=== PATIENT | female | born 1935 | race Caucasian/White ===

== ENCOUNTER 2016-10-27 09:49 | Inpatient (IN) | payer MEDICARE, OTHER ==
[2016-10-27] MEDS ORDERED: Sodium Chloride 0.9% 10 ML Syringe FLUSH PRN ×2 (10:31→11:57)
[2016-10-27] MEDS ORDERED: Ondansetron 4 MG/2 ML SDV IVPUSH ONE (10:31)
[2016-10-27] MEDS ORDERED: Sodium Chloride 0.9% 1,000 ML IV SCH (10:45)
--- NOTE | 2016-10-27 11:09 | CT ---
Head CT Technique: Multiple axial sections through the brain were obtained. Intravenous contrast was not utilized. Comparison: Previous head CT study of 02/12/16. Findings: Ventricles along with basal cisterns and sulci over the convexities are mildly prominent. Diminished density noted within the periventricular white matter compatible with small vessel ischemic demyelination change. No other abnormal parenchymal densities are seen. Atherosclerotic calcification is noted within the vertebral vessels and within the carotid siphon. Bone window settings were reviewed which shows the visualized sinuses to appear clear. No discrete calvarial abnormality is seen. Impression: 1. Senescent change as noted above. No significant change is seen from prior head CT exam. Nothing acute is identified. Diagnostic code #2
--- NOTE | 2016-10-27 11:46 | CR ---
Chest: Frontal view of the chest was obtained. Comparison: Previous chest x-ray of 06/18/16. Large hiatal hernia is seen which appears stable. Heart size at the upper limits of normal. Mild tortuosity of the thoracic aorta is seen. Lungs are clear. Mild scoliosis is noted within the spine. Impression: 1. Incidental findings as noted above. Nothing acute identified on frontal chest x-ray. Diagnostic code #2
[2016-10-27] MEDS ORDERED: Iopamidol 612 MG/ML 100 ML Bottle IVPUSH ONE (11:57)
--- NOTE | 2016-10-27 12:35 | EDM.PDOC ---
ED HISTORY OF PRESENT ILLNESS - General Chief Complaint: Chest Pain Stated Complaint: VOMITING/ WEAK/ CHEST PAIN Time Seen by Provider: 10/27/16 10:20 Source of Information: Reports: Other ([facility]) History Limitations: Reports: Altered mental status - History of Present Illness INITIAL COMMENTS - FREE TEXT/NARRATIVE: The patient presents from [facility] with complaints of chest pain, nausea and vomiting. A few nights ago her stomach was upset and she needed some maalox and that helped but through the night last night the pain has increased and she has vomited multiple times. She has a history of hiatal hernia and has episodes like this but this is worse. She has pain in the epigastric region and chest. She will not take her medications to help with this. She will not respond much. She will normally talk but she refuses now. She has had no fever or cough from what the staff observed. Timing/Duration: Reports: Hour(s): (Last night) Severity: moderate Location, General: Reports: chest, abdomen Quality: Reports: Sharp Improves with: Reports: None Worsens with: Reports: None Associated Symptoms (General): Reports: chest pain, nausea/vomiting. Denies: cough, fever/chills, loss of appetite, shortness of breath - Related Data Allergies/ADRs: Allergies Allergy/AdvReac Type Severity Reaction Status Date / Time acetaminophen [From Tylenol] Allergy Severe Cannot Verified 10/27/16 10:02 Remember Home Meds: Home Meds Benzocaine/Menthol [Cepacol Sore Throat Lozenge] 1 tab PO Q4H PRN 10/27/16 [ History] Carboxymethyl/Glycerin/Poly80 [Refresh Optive Advanced Drops] 1 drop EYEBOTH BID 10/27/16 [History] Donepezil HCl [Donepezil HCl] 5 mg PO BEDTIME 10/27/16 [History] Hydrocortisone [Cortizone-10] 1 applic TOP BID PRN 10/27/16 [History] Levothyroxine [Synthroid] 50 mcg PO DAILY 10/27/16 [History] Lidocaine HCl [Aspercreme] 1 applic TOP QID PRN 10/27/16 [History] Magnesium Hydroxide [Milk of Magnesia] 400 mg PO QID PRN 10/27/16 [History] Metoclopramide [Reglan] 10 mg PO Q6H PRN 10/27/16 [History] Miracle Mouth Rinse 5 ml PO QID PRN 10/27/16 [History] Multivit-Min/FA/Lycopene/Lut [Century Adults 50+ Tablet] 1 tab PO DAILY [History] Naproxen Sodium [Aleve] 220 mg PO BID PRN 10/27/16 [History] Omeprazole Magnesium [Prilosec Otc] 20 mg PO BID PRN 10/27/16 [History] Oxybutynin Chloride [Ditropan Xl] 5 mg PO DAILY 10/27/16 [History] QUEtiapine Fumarate [Seroquel] 50 mg PO BEDTIME 10/27/16 [History] traMADol HCl [Tramadol HCl] 50 mg PO BID 10/27/16 [History] Past Medical History HEENT History: Reports: Allergic rhinitis, Cataract, Other (see below) Other HEENT History: 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 Cardiovascular History: Reports: Hypertension Respiratory History: Reports: Other (see below) Other Respiratory History: lung nodule Gastrointestinal History: Reports: Chronic diarrhea, Colon polyp, Diverticulosis , Gastritis, GERD, Helicobacter pylori, Hiatal hernia, PUD Genitourinary History: Reports: Urinary incontinence NURSING PROGRAM CHAIR History: Reports: Musculoskeletal History: Reports: Osteoarthritis, Osteoporosis Neurological History: Reports: Alzheimers disease Psychiatric History: Reports: Bipolar, Schizophrenia Other Psychiatric History: paranoia Endocrine/Metabolic History: Reports: Hypothyroidism Hematologic History: Reports: Anemia - Past Surgical History Cardiovascular Surgical History: Reports: None Respiratory Surgical History: Reports: None Female Surgical History: Reports: None Social & Family History - Family History Family Medical History: Unobtainable - Tobacco Use Smoking Status *Q: Unknown Ever Smoked Second Hand Smoke Exposure: No - Caffeine Use Caffeine Use: Reports: Coffee - Recreational Drug Use Recreational Drug Use: No - Living Situation & Occupation Living situation: Reports: extended care facility Occupation: retired ED ROS GENERAL - Review of Systems Review Of Systems: See Below Constitutional: Reports: no symptoms HEENT: Reports: No symptoms Respiratory: Reports: No Symptoms Cardiovascular: Reports: Chest pain Endocrine: Reports: no symptoms GI/Abdominal: Reports: Abdominal pain (Upper), Nausea, Vomiting : Reports: no symptoms Musculoskeletal: Reports: no symptoms Skin: Reports: no symptoms ED EXAM, GENERAL - Physical Exam Exam: See Below Exam Limited By: Altered mental status General Appearance: alert, no apparent distress Ears: normal external exam Nose: normal inspection Head: atraumatic, normocephalic Neck: normal inspection Respiratory/Chest: no respiratory distress, lungs clear, normal breath sounds Cardiovascular: regular rate, rhythm, no edema, no murmur GI/Abdominal: soft, no organomegaly, no mass, tender (Moderate pain upon palpation to the epigastric region) Back Exam: normal inspection Extremities: normal inspection Course - Vital Signs Last Recorded V/S: Last Vital Signs Temp 97.3 F 10/27/16 09:57 Pulse 70 10/27/16 09:57 Resp 20 10/27/16 09:57 BP 191/98 H 10/27/16 09:57 Pulse Ox 97 10/27/16 09:57 - Orders/Labs/Meds Orders: Active Orders 24 hr Category Date Time Status Patient Status [ADT] Routine ADT 10/27/16 14:13 Ordered Cardiac Monitoring [RC] . DIRECTED Care 10/27/16 10:31 Active EKG Documentation Completion [RC] STAT Care 10/27/16 10:32 Active Peripheral IV Care [RC] . DIRECTED Care 10/27/16 10:32 Active CRP [C-REACTIVE PROTEIN] [CHEM] Stat Lab 10/27/16 14:12 Ordered LACTIC ACID [CHEM] Stat Lab 10/27/16 14:12 Ordered UA W/MICROSCOPIC [URIN] Stat Lab 10/27/16 14:02 Received Sodium Chloride 0.9% [Normal Saline] 1,000 ml Med 10/27/16 10:45 Active IV ASDIRECTED Sodium Chloride 0.9% [Saline Flush] Med 10/27/16 10:31 Active 10 ml FLUSH ASDIRECTED PRN Sodium Chloride 0.9% [Saline Flush] Med 10/27/16 11:57 Active 10 ml FLUSH ONETIME PRN ED Antiemetic Medication Reflex [OM.PC] Stat Oth 10/27/16 10:31 Ordered NG [Nasogastric Orogastric Tube Insertion] [OM.PC] Oth 10/27/16 13:36 Ordered Routine Peripheral IV Insertion Adult [OM.PC] Stat Oth 10/27/16 10:31 Ordered Medication Orders Sodium Chloride (Normal Saline) 1,000 mls @ 125 mls/hr IV ASDIRECTED [facility] Last Admin: 10/27/16 10:47 Dose: 125 mls/hr Sodium Chloride (Saline Flush) 10 ml FLUSH ASDIRECTED PRN PRN Reason: Keep Vein Open Last Admin: 10/27/16 10:50 Dose: 10 ml Sodium Chloride (Saline Flush) 10 ml FLUSH ONETIME PRN PRN Reason: IV FLUSH Last Admin: 10/27/16 12:03 Dose: 10 ml Labs: Laboratory Tests 10/27/16 10/27/16 10/27/16 Range/Units 11:08 11:08 14:02 WBC 7.96 (3.98-10.04) K/mm3 RBC 5.36 H (3.98-5.22) M/mm3 Hgb 15.3 (11.2-15.7) gm/L Hct 47.0 H (34.1-44.9) % MCV 87.7 (79.4-94.8) fl MCH 28.5 (25.6-32.2) pg MCHC 32.6 (32.2-35.5) g/dl RDW Std Deviation 48.5 H (36.4-46.3) fL Plt Count 340 (182-369) K/mm3 MPV 9.5 (9.4-12.3) fl Neut % (Auto) 81.6 H (34.0-71.1) % Lymph % (Auto) 13.9 L (19.3-51.7) % Larue % (Auto) 4.3 L (4.7-12.5) % Eos % (Auto) 0 L (0.7-5.8) Baso % (Auto) 0.1 (0.1-1.2) % Neut # (Auto) 6.49 H (1.56-6.13) K/mm3 Lymph # (Auto) 1.11 L (1.18-3.74) K/mm3 Larue # (Auto) 0.34 (0.24-0.36) K/mm3 Eos # (Auto) 0.00 L (0.04-0.36) K/mm3 Baso # (Auto) 0.01 (0.01-0.08) K/mm3 Sodium 142 (136-145) mEq/L Potassium 3.4 L (3.5-5.1) mEq/L Chloride 100 (98-107) mEq/L Carbon Dioxide 26 (21-32) mEq/L Anion Gap 19.4 H (5-15) BUN 16 (7-18) mg/dL Creatinine 1.1 H (0.55-1.02) mg/dL Est Cr Clr Drug Dosing 32.26 mL/min Estimated GFR (MDRD) 48 (>60) mL/min BUN/Creatinine Ratio 14.5 (14-18) Glucose 195 H (83-115) mg/dL Calcium 10.2 H (8.5-10.1) mg/dL Total Bilirubin 0.7 (0.2-1.0) mg/dL AST 21 (15-37) U/L ALT 27 (14-59) U/L Alkaline Phosphatase 160 H (46-116) U/L Troponin I < 0.017 (0.00-0.056) ng/mL Total Protein 9.0 H (6.4-8.2) g/dl Albumin 4.7 (3.4-5.0) g/dl Globulin 4.3 gm/dL Albumin/Globulin Ratio 1.1 (1-2) Lipase 161 (73-393) U/L Urine Color Light yellow (Yellow) Urine Appearance Slt cloudy H (Clear) Urine pH 8.5 H (5.0-8.0) Ur Specific Conner 1.020 (1.005-1.030) Urine Protein 1+ H (Negative) Urine Glucose (UA) 1+ H (Negative) Urine Ketones 2+ H (Negative) Urine Occult Blood Trace-intact H (Negative) Urine Nitrite Negative (Negative) Urine Bilirubin Negative (Negative) Urine Urobilinogen 0.2 (0.2-1.0) Ur Leukocyte Esterase Negative (Negative) Meds: Medications Generic Name Dose Route Start Last Admin Trade Name Freq PRN Reason Stop Dose Admin Sodium Chloride 1,000 mls @ 125 mls/hr 10/27/16 10:45 10/27/16 10:47 Normal Saline IV 125 mls/hr ASDIRECTED HERACLIO Administration Sodium Chloride 10 ml 10/27/16 10:31 10/27/16 10:50 Saline Flush FLUSH 10 ml ASDIRECTED PRN Administration Keep Vein Open Sodium Chloride 10 ml 10/27/16 11:57 10/27/16 12:03 Saline Flush FLUSH 10 ml ONETIME PRN Administration IV FLUSH Discontinued Medications Generic Name Dose Route Start Last Admin Trade Name Renea PRN Reason Stop Dose Admin Iopamidol 100 ml 10/27/16 11:57 10/27/16 12:03 Isovue-300 (61%) IVPUSH 10/27/16 11:58 100 ml ONETIME ONE Administration Metoclopramide HCl 10 mg 10/27/16 13:38 10/27/16 13:52 Reglan IVPUSH 10/27/16 13:39 10 mg ONETIME ONE Administration Ondansetron HCl 4 mg 10/27/16 10:31 10/27/16 10:47 Zofran IVPUSH 10/27/16 10:32 4 mg ONETIME ONE Administration - Re-Assessments/Exams Free Text/Narrative Re-Assessment/Exam: 10/27/16 12:37 I ordered an IV NS at 125mL/hr, zofran 4mg IV, EKG, CT of her head and abdomen and pelvis, labs and UA. Her EKG shows a NSR with nothing acute. The CT of her head looks good. Her CXR looks good. 10/27/16 13:42 Her WBC is normal. Her Hgb is a little elevated at 15.3. Her K is a little low at 3.4. Her creatinine is a little elevated at 1.1. Her troponin is negative. Her lipase is normal at 161. Her CT shows hiatal hernia. Stomach antrum has rotated into the hernia sac which is an interval change. Fluid- filled dilated stomach is noted both intrathoracic and intra-abdominal. This rotation of the stomach with the stomach antrum into the hernia sac is felt to be causing the obstruction. Recommend surgical referrel. I called Dr Sotelo our general surgeon registered radiation therapist and she is aware of the patient. I called her power of insurance attorney who is a [employer] in [place] and she will be talking to the family to see where they would want this done. 10/27/16 14:17 Her daughter called me back and they are okay having her stay here for the surgery. I called Dr Sotelo back and she will come see the patient and Dr Graves was consulted for medical clearance for the procedure. My nurse attempted to put an NG tube in but she pulled it right out. Departure - Departure Time of Disposition: 14:20 Disposition: Admitted As Inpatient 67 Condition: serious Clinical Impression: Hiatal hernia, Hiatal hernia with obstruction but no gangrene Nausea and vomiting Qualifiers: Vomiting type: unspecified Vomiting Intractability: intractable Qualified Code( s): R11.2 - Nausea with vomiting, unspecified Forms: ED Department Discharge - My Orders Last 24 Hours: My Active Orders 10/27/16 10:31 Cardiac Monitoring [RC] . DIRECTED Sodium Chloride 0.9% [Saline Flush] 10 ml FLUSH ASDIRECTED PRN ED Antiemetic Medication Reflex [OM.PC] Stat Peripheral IV Insertion Adult [OM.PC] Stat 10/27/16 10:32 EKG Documentation Completion [RC] STAT Peripheral IV Care [RC] . DIRECTED 10/27/16 10:45 Sodium Chloride 0.9% [Normal Saline] 1,000 ml IV ASDIRECTED 10/27/16 11:57 Sodium Chloride 0.9% [Saline Flush] 10 ml FLUSH ONETIME PRN 10/27/16 13:36 NG [Nasogastric Orogastric Tube Insertion] [OM.PC] Routine 10/27/16 14:02 UA W/MICROSCOPIC [URIN] Stat 10/27/16 14:12 CRP [C-REACTIVE PROTEIN] [CHEM] Stat LACTIC ACID [CHEM] Stat 10/27/16 14:13 Patient Status [ADT] Routine - Assessment/Plan Last 24 Hours: My Active Orders 10/27/16 10:31 Cardiac Monitoring [RC] . DIRECTED Sodium Chloride 0.9% [Saline Flush] 10 ml FLUSH ASDIRECTED PRN ED Antiemetic Medication Reflex [OM.PC] Stat Peripheral IV Insertion Adult [OM.PC] Stat 10/27/16 10:32 EKG Documentation Completion [RC] STAT Peripheral IV Care [RC] . DIRECTED 10/27/16 10:45 Sodium Chloride 0.9% [Normal Saline] 1,000 ml IV ASDIRECTED 10/27/16 11:57 Sodium Chloride 0.9% [Saline Flush] 10 ml FLUSH ONETIME PRN 10/27/16 13:36 NG [Nasogastric Orogastric Tube Insertion] [OM.PC] Routine 10/27/16 14:02 UA W/MICROSCOPIC [URIN] Stat 10/27/16 14:12 CRP [C-REACTIVE PROTEIN] [CHEM] Stat LACTIC ACID [CHEM] Stat 10/27/16 14:13 Patient Status [ADT] Routine
[2016-10-27] MEDS ORDERED: Metoclopramide 10 MG/2 ML SDV IVPUSH ONE (13:38)
--- NOTE | 2016-10-27 13:44 | CT ---
CT abdomen and pelvis Technique: Multiple axial sections were obtained from above the dome of the diaphragm inferiorly through the pubic symphysis. Intravenous contrast was utilized. No oral contrast has been given. Comparison: Previous CT abdomen and pelvis exam of 01/11/16. Findings: Large hiatal hernia is seen. Large amount of fluid is seen dilating the stomach. More of the stomach is intrathoracic then previous. Stomach antrum is within the hiatal hernia with a portion of the body of the stomach being within the abdomen. Antral position is an interval change and presumably is causing the dilatation. Visualized lung bases are clear. Liver shows no focal abnormality. Adrenal glands show no nodule. Pancreas is within normal limits. Aorta shows no aneurysmal dilatation. No retroperitoneal adenopathy is seen. No mesenteric abnormalities are seen. Diverticuli are seen within the descending and sigmoid regions without inflammatory change. Multiple cysts are seen within both kidneys. Delayed images shows contrast within the bladder. Bone window settings were reviewed which shows degenerative change with spondylolisthesis, disc space narrowing and vacuum phenomena at L4-L5 and L5-S1 due to degenerative apophyseal change. Lesser degenerative change is scattered within other portions of the spine. Impression: 1. Hiatal hernia. Stomach antrum has rotated into the hernia sac which is an interval change. Fluid-filled dilated stomach is noted both intrathoracic and intra-abdominal. This rotation of the stomach with the stomach antrum into the hernia sac is felt to be causing the obstruction. Recommend surgical referral. 2. Other incidental findings. Diagnostic code #5
--- NOTE | 2016-10-27 14:17 | PCM.CONS ---
H&P History of Present Illness - General Date of Service: 10/27/16 Source of Information: alf records, Old records, Provider, Other ( custodial personnel) History Limitations: Reports: No limitations - History of Present Illness Initial Comments - Free Text/Narative: The patient is an 81-year-old woman with schizophrenia and Alzheimer's dementia who presented to the emergency department for complaints of increasing abdominal discomfort and heartburn over the past 2-3 days. She was accompanied by her care provider at [facility] [place]. The patient had coffee-ground emesis, uncertain how many times. She does take NSAIDs for chronic arthritis related pain. They had given her Maalox on several occasions over the past couple of days to help with her heartburn symptoms, however they were not improving. On CT scan of the abdomen and pelvis in the emergency department she had a gastric outlet obstruction due to hiatal hernia with the antrum and cardia of the stomach being above the diaphragm. I had discussed with the patient's daughter/ DPOA on the phoneher mother's condition, she wasin favor of attempting emergent surgical decompression. No history was obtainable from the patient to to her chronic mental illness/dementia PMH: Vocal cord cyst, osteopenia, lung nodules, history of colon polyps, hypothyroidism, hiatal hernia, diverticulosis, osteoarthritis, chronic diarrhea , iron deficiency anemia, Alzheimer's dementia with behavioral disturbance, hypertension, hx of H pylori, hx of PUD, hearing loss PSxH: Wrist fracture repair with ORIF [address] Sandoval and Total knee replacement on the right November [address] Amaya 2009 Hysterectomy [address] My Brown Colonoscopy July 22, 2006: Polyps Cholecystectomy 1985 Breast biopsy on the left 2001 Dr. Montoya her in [place] benign Breast biopsy on the right 2005 single Marcos SH: Patient lives at [facility] [place]. Dr. Schaeffer is her primary. Daughter Tamar are her durable contreras of regulatory attorney. FH: Unobtainable Meds/ALL: Reviewed and as per medication list - Related Data Allergies/Adverse Reactions: Allergies Allergy/AdvReac Type Severity Reaction Status Date / Time acetaminophen [From Tylenol] Allergy Intermediate Cannot Verified 10/27/16 17:14 Remember Home Medications: Home Meds Benzocaine/Menthol [Cepacol Sore Throat Lozenge] 1 tab PO Q4H PRN 10/27/16 [ History] Carboxymethyl/Glycerin/Poly80 [Refresh Optive Advanced Drops] 1 drop EYEBOTH BID 10/27/16 [History] Donepezil HCl [Donepezil HCl] 5 mg PO BEDTIME 10/27/16 [History] Hydrocortisone [Cortizone-10] 1 applic TOP BID PRN 10/27/16 [History] Levothyroxine [Synthroid] 50 mcg PO DAILY 10/27/16 [History] Lidocaine HCl [Aspercreme] 1 applic TOP QID PRN 10/27/16 [History] Magnesium Hydroxide [Milk of Magnesia] 400 mg PO QID PRN 10/27/16 [History] Metoclopramide [Reglan] 10 mg PO Q6H PRN 10/27/16 [History] Miracle Mouth Rinse 5 ml PO QID PRN 10/27/16 [History] Multivit-Min/FA/Lycopene/Lut [Century Adults 50+ Tablet] 1 tab PO DAILY [History] Naproxen Sodium [Aleve] 220 mg PO BID PRN 10/27/16 [History] Omeprazole Magnesium [Prilosec Otc] 20 mg PO BID PRN 10/27/16 [History] Oxybutynin Chloride [Ditropan Xl] 5 mg PO DAILY 10/27/16 [History] QUEtiapine Fumarate [Seroquel] 50 mg PO BEDTIME 10/27/16 [History] traMADol HCl [Tramadol HCl] 50 mg PO BID 10/27/16 [History] Past Medical History HEENT History: Reports: Allergic rhinitis, Cataract, Other (see below) Other HEENT History: 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 Cardiovascular History: Reports: Hypertension Respiratory History: Reports: Other (see below) Other Respiratory History: lung nodule Gastrointestinal History: Reports: Chronic diarrhea, Colon polyp, Diverticulosis , Gastritis, GERD, Helicobacter pylori, Hiatal hernia, PUD Genitourinary History: Reports: Urinary incontinence [employer] 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: Musculoskeletal History: Reports: Osteoarthritis, Osteoporosis Neurological History: Reports: Alzheimers disease Psychiatric History: Reports: Bipolar, Schizophrenia Other Psychiatric History: paranoia Endocrine/Metabolic History: Reports: Hypothyroidism Hematologic History: Reports: Anemia - Past Surgical History Cardiovascular Surgical History: Reports: None Respiratory Surgical History: Reports: None Female Surgical History: Reports: None Social & Family History - Family History Family Medical History: Unobtainable - Tobacco Use Smoking Status *Q: Unknown Ever Smoked Second Hand Smoke Exposure: No - Caffeine Use Caffeine Use: Reports: Coffee - Recreational Drug Use Recreational Drug Use: No - Living Situation & Occupation Living situation: Reports: extended care facility Occupation: retired H&P Review of Systems - Review of Systems: Review Of Systems: Unable To Obtain Exam - Exam Exam: See Below - Vital Signs Vital Signs: Last Vital Signs Temp 97.3 F 10/27/16 09:57 Pulse 70 10/27/16 09:57 Resp 20 10/27/16 09:57 BP 191/98 H 10/27/16 09:57 Pulse Ox 97 10/27/16 09:57 Weight: 162 lb - Exam Quality Assessment: supplemental oxygen General: alert, mild distress. No: oriented, cooperative HEENT: Hearing intact. No: Scleral icterus Lungs: Decreased breath sounds Cardiovascular: regular rate, regular rhythm Abdomen: soft, guarding (voluntary ), tenderness (epigastric ). No: peritoneal signs, rigidity, rebound (Female) Exam: Deferred Rectal (Female) Exam: Deferred Extremities: No: clubbing, cyanosis Skin: warm, dry, intact Neurological: normal speech (although not able to correctly answer questions ) Psychiatric: alert, agitated (slightly ) - Patient Data Lab Results last 24 hrs: Laboratory Results - last 24 hr 10/27/16 10/27/16 Range/Units 11:08 11:08 WBC 7.96 (3.98-10.04) K/mm3 RBC 5.36 H (3.98-5.22) M/mm3 Hgb 15.3 (11.2-15.7) gm/L Hct 47.0 H (34.1-44.9) % MCV 87.7 (79.4-94.8) fl MCH 28.5 (25.6-32.2) pg MCHC 32.6 (32.2-35.5) g/dl RDW Std Deviation 48.5 H (36.4-46.3) fL Plt Count 340 (182-369) K/mm3 MPV 9.5 (9.4-12.3) fl Neut % (Auto) 81.6 H (34.0-71.1) % Lymph % (Auto) 13.9 L (19.3-51.7) % [place] % (Auto) 4.3 L (4.7-12.5) % Eos % (Auto) 0 L (0.7-5.8) Baso % (Auto) 0.1 (0.1-1.2) % Neut # (Auto) 6.49 H (1.56-6.13) K/mm3 Lymph # (Auto) 1.11 L (1.18-3.74) K/mm3 [place] # (Auto) 0.34 (0.24-0.36) K/mm3 Eos # (Auto) 0.00 L (0.04-0.36) K/mm3 Baso # (Auto) 0.01 (0.01-0.08) K/mm3 Sodium 142 (136-145) mEq/L Potassium 3.4 L (3.5-5.1) mEq/L Chloride 100 (98-107) mEq/L Carbon Dioxide 26 (21-32) mEq/L Anion Gap 19.4 H (5-15) BUN 16 (7-18) mg/dL Creatinine 1.1 H (0.55-1.02) mg/dL Est Cr Clr Drug Dosing 32.26 mL/min Estimated GFR (MDRD) 48 (>60) mL/min BUN/Creatinine Ratio 14.5 (14-18) Glucose 195 H (83-115) mg/dL Calcium 10.2 H (8.5-10.1) mg/dL Total Bilirubin 0.7 (0.2-1.0) mg/dL AST 21 (15-37) U/L ALT 27 (14-59) U/L Alkaline Phosphatase 160 H (46-116) U/L Troponin I < 0.017 (0.00-0.056) ng/mL Total Protein 9.0 H (6.4-8.2) g/dl Albumin 4.7 (3.4-5.0) g/dl Globulin 4.3 gm/dL Albumin/Globulin Ratio 1.1 (1-2) Lipase 161 (73-393) U/L Result Diagrams: 10/30/16 06:39 10/30/16 06:39 Consult PN Assessment/Plan Procedures: Procedures ASSAY OF CK (CPK) (09/11/15) ASSAY OF LACTIC ACID (02/12/16) ASSAY OF LIPASE (06/18/16) ASSAY OF MAGNESIUM (09/11/15) ASSAY OF NATRIURETIC PEPTIDE (02/12/16) ASSAY OF PHOSPHORUS (09/11/15) ASSAY OF SERUM POTASSIUM (09/11/15) ASSAY OF TROPONIN QUANT (06/18/16) ASSAY THYROID STIM HORMONE (02/12/16) BLOOD CULTURE FOR BACTERIA (02/12/16) BLOOD GASES ANY COMBINATION (02/12/16) BLOOD TYPING SEROLOGIC ABO (09/11/15) BLOOD TYPING SEROLOGIC RH(D) (09/11/15) C-REACTIVE PROTEIN (09/11/15) CHEST X-RAY 1 VIEW FRONTAL (06/18/16) COMPLETE CBC AUTOMATED (09/11/15) COMPLETE CBC W/AUTO DIFF WBC (06/18/16) COMPREHEN METABOLIC PANEL (06/18/16) CT ABD & PELV W/CONTRAST (01/11/16) CT ANGIOGRAPHY CHEST (02/20/15) CT HEAD/BRAIN W/O DYE (02/12/16) ELECTROCARDIOGRAM TRACING (06/18/16) EMERGENCY DEPT VISIT (06/18/16) EMERGENCY DEPT VISIT (02/11/14) FIBRIN DEGRADATION QUANT (02/12/16) GAIT TRAINING THERAPY (09/11/15) GLYCOSYLATED HEMOGLOBIN TEST (09/11/15) HELICOBACTER PYLORI ANTIBODY (06/18/16) HYDRATE IV INFUSION ADD-ON (01/11/16) HYDRATION IV INFUSION INIT (01/11/16) METABOLIC PANEL TOTAL CA (09/11/15) OCCULT BLD FECES 1-3 TESTS (09/11/15) OT EVALUATION (09/11/15) PROTHROMBIN TIME (02/12/16) PT EVALUATION (09/11/15) ROUTINE VENIPUNCTURE (06/18/16) TEST FOR ACETONE/KETONES (09/11/15) THER/PROPH/DIAG INJ IV PUSH (06/18/16) THER/PROPH/DIAG INJ SC/IM (02/20/15) THERAPEUTIC ACTIVITIES (09/11/15) THERAPEUTIC EXERCISES (09/11/15) THROMBOPLASTIN TIME PARTIAL (02/12/16) TX/PRO/DX INJ NEW DRUG ADDON (06/18/16) URINALYSIS AUTO W/SCOPE (02/12/16) WITHDRAWAL OF ARTERIAL BLOOD (02/12/16) X-RAY EXAM OF FEMUR 2/> (09/11/15) X-RAY EXAM OF PELVIS (02/12/16) (1) Hiatal hernia with obstruction but no gangrene SNOMED Code(s): 28205154 Code(s): K44.0 - DIAPHRAGMATIC HERNIA WITH OBSTRUCTION, WITHOUT GANGRENE Current Visit: Yes (2) Nausea and vomiting SNOMED Code(s): 25278273 Code(s): R11.2 - NAUSEA WITH VOMITING, UNSPECIFIED Current Visit: Yes Qualifiers: Vomiting type: unspecified Vomiting Intractability: intractable Qualified Code(s): R11.2 - Nausea with vomiting, unspecified (3) Coffee ground emesis SNOMED Code(s): 403180939, 992064417 Code(s): K92.0 - HEMATEMESIS Current Visit: No Problem List Initiated/Reviewed/Updated: Yes Plan: 81 yo woman with acutely incarcerated hiatal hernia resulting in gastric outlet obstruction I discussed with the patient's daughter emergent surgical intervention to resolve her mother's gastric outlet obstruction/acutely incarcerated hernia via telephone. I discussed that I would attempt to laparoscopically decompress the patient's stomach into the abdomen and then perform a gastropexy with a PEG tube. I discussed with her that if there was evidence of necrosis of the stomach an exploratory laparotomy with possible gastric resection could be required, we discussed possible central line placement. We discussed associated risks and benefits of all of the procedures including pain, bleeding , infection, need for additional procedures, possible , pneumonia, etc. The patient's daughter Sherri found these risks acceptable and agreed to proceed. This was witnessed by the emergency room nurse. The patient will be taken emergently to the operating room. Dr. Josette Graves , hospitalist, has been kind enough to admit her as her primary attending after surgery and I will continue to follow along as long as she is hospitalized.
[2016-10-27] MEDS ORDERED: Bupivacaine 0.5%/EPINEPHrine 1:200,000 50 ML MDV ONE (14:55)
[2016-10-27] MEDS ORDERED: Lidocaine 1% 50 ML MDV ONE (14:55)
[2016-10-27] MEDS ORDERED: Propofol 200 MG/20 ML SDV ONE (15:02)
[2016-10-27] MEDS ORDERED: fentaNYL 100 MCG/2 ML SDV ONE (15:02)
[2016-10-27] MEDS ORDERED: Lidocaine 1% 6 ML ONE (15:56)
[2016-10-27] MEDS ORDERED: Ertapenem 1 GM AdvVial ONE (15:56)
[2016-10-27] MEDS ORDERED: Succinylcholine/Normal Saline 100 MG/5 ML Syringe ONE (15:56)
[2016-10-27] MEDS ORDERED: HYDROmorphone 1 MG/ML Syringe ONE (15:56)
--- NOTE | 2016-10-27 15:59 | PCM.PREANE ---
Preanesthetic Assessment - Procedure Proposed Procedure: EGD, ex-lap - Anesthesia/Transfusion/Family Hx Anesthesia History: Prior Anesthesia Without Reaction - Review of Systems General: Weakness Pulmonary: No Symptoms Cardiovascular: No Symptoms Gastrointestinal: Abdominal pain, Decreased appetite, Nausea, Vomiting Neurological: Confusion Other: Reports: None - Physical Assessment NPO Status Date: 10/26/16 NPO Status Time: 19:30 O2 Sat by Pulse Oximetry: 97 Respiratory Rate: 20 Vital Signs: Last Vital Signs Temp 36.3 C 10/27/16 09:57 Pulse 70 10/27/16 09:57 Resp 20 10/27/16 09:57 BP 191/98 H 10/27/16 09:57 Pulse Ox 97 10/27/16 09:57 Height: 1.57 m Weight: 73.482 kg ASA Class: 4E Mental Status: Alert & Oriented x3 Dentition: Reports: Normal Dentition (uncooperative pt unable to assess mallampati or teeth) Thyro-Mental Finger Breadths: 3 Mouth Opening Finger Breadths: 0 (unknown, uncoop pt.) ROM/Head Extension: Full Lungs: Clear to auscultation, Normal respiratory effort Cardiovascular: Regular Rate, Regular Rhythm - Lab Values: Laboratory Last Values WBC 7.96 K/mm3 (3.98-10.04) 10/27/16 11:08 RBC 5.36 M/mm3 (3.98-5.22) H 10/27/16 11:08 Hgb 15.3 gm/L (11.2-15.7) 10/27/16 11:08 Hct 47.0 % (34.1-44.9) H 10/27/16 11:08 MCV 87.7 fl (79.4-94.8) 10/27/16 11:08 MCH 28.5 pg (25.6-32.2) 10/27/16 11:08 MCHC 32.6 g/dl (32.2-35.5) 10/27/16 11:08 RDW Std Deviation 48.5 fL (36.4-46.3) H 10/27/16 11:08 Plt Count 340 K/mm3 (182-369) 10/27/16 11:08 MPV 9.5 fl (9.4-12.3) 10/27/16 11:08 Neut % (Auto) 81.6 % (34.0-71.1) H 10/27/16 11:08 Lymph % (Auto) 13.9 % (19.3-51.7) L 10/27/16 11:08 [place] % (Auto) 4.3 % (4.7-12.5) L 10/27/16 11:08 Eos % (Auto) 0 (0.7-5.8) L 10/27/16 11:08 Baso % (Auto) 0.1 % (0.1-1.2) 10/27/16 11:08 Neut # (Auto) 6.49 K/mm3 (1.56-6.13) H 10/27/16 11:08 Lymph # (Auto) 1.11 K/mm3 (1.18-3.74) L 10/27/16 11:08 [place] # (Auto) 0.34 K/mm3 (0.24-0.36) 10/27/16 11:08 Eos # (Auto) 0.00 K/mm3 (0.04-0.36) L 10/27/16 11:08 Baso # (Auto) 0.01 K/mm3 (0.01-0.08) 10/27/16 11:08 Sodium 142 mEq/L (136-145) 10/27/16 11:08 Potassium 3.4 mEq/L (3.5-5.1) L 10/27/16 11:08 Chloride 100 mEq/L (98-107) 10/27/16 11:08 Carbon Dioxide 26 mEq/L (21-32) 10/27/16 11:08 Anion Gap 19.4 (5-15) H 10/27/16 11:08 BUN 16 mg/dL (7-18) 10/27/16 11:08 Creatinine 1.1 mg/dL (0.55-1.02) H 10/27/16 11:08 Est Cr Clr Drug Dosing 32.26 mL/min 10/27/16 11:08 Estimated GFR (MDRD) 48 mL/min (>60) 10/27/16 11:08 BUN/Creatinine Ratio 14.5 (14-18) 10/27/16 11:08 Glucose 195 mg/dL (83-115) H 10/27/16 11:08 Lactic Acid 3.3 mmol/L (0.4-2.0) H 10/27/16 14:46 Calcium 10.2 mg/dL (8.5-10.1) H 10/27/16 11:08 Total Bilirubin 0.7 mg/dL (0.2-1.0) 10/27/16 11:08 AST 21 U/L (15-37) 10/27/16 11:08 ALT 27 U/L (14-59) 10/27/16 11:08 Alkaline Phosphatase 160 U/L (46-116) H 10/27/16 11:08 Troponin I < 0.017 ng/mL (0.00-0.056) 10/27/16 11:08 C-Reactive Protein 0.8 mg/dL (<1.0) 10/27/16 14:46 Total Protein 9.0 g/dl (6.4-8.2) H 10/27/16 11:08 Albumin 4.7 g/dl (3.4-5.0) 10/27/16 11:08 Globulin 4.3 gm/dL 10/27/16 11:08 Albumin/Globulin Ratio 1.1 (1-2) 10/27/16 11:08 Lipase 161 U/L (73-393) 10/27/16 11:08 Urine Color Light yellow (Yellow) 10/27/16 14:02 Urine Appearance Slt cloudy (Clear) H 10/27/16 14:02 Urine pH 8.5 (5.0-8.0) H 10/27/16 14:02 Ur Specific [place] 1.020 (1.005-1.030) 10/27/16 14:02 Urine Protein 1+ (Negative) H 10/27/16 14:02 Urine Glucose (UA) 1+ (Negative) H 10/27/16 14:02 Urine Ketones 2+ (Negative) H 10/27/16 14:02 Urine Occult Blood Trace-intact (Negative) H 10/27/16 14:02 Urine Nitrite Negative (Negative) 10/27/16 14:02 Urine Bilirubin Negative (Negative) 10/27/16 14:02 Urine Urobilinogen 0.2 (0.2-1.0) 10/27/16 14:02 Ur Leukocyte Esterase Negative (Negative) 10/27/16 14:02 Urine RBC 10-20 /hpf (0-5) H 10/27/16 14:02 Urine WBC 0-5 /hpf (0-5) 10/27/16 14:02 Ur Squamous Epith Cells 0-5 /hpf (0-5) 10/27/16 14:02 Amorphous Sediment Moderate /hpf (NOT SEEN) H 10/27/16 14:02 Urine Bacteria Few /hpf (FEW) 10/27/16 14:02 Urine Mucus Not seen /hpf (FEW) 10/27/16 14:02 - Imaging/EKG Impressions: NSR/ nothing acute per ER physician report - Allergies Allergies/Adverse Reactions: Allergies Allergy/AdvReac Type Severity Reaction Status Date / Time acetaminophen [From Tylenol] Allergy Severe Cannot Verified 10/27/16 10:02 Remember - Acknowledgements Anesthesia Type Planned: General Anesthesia Pt an Appropriate Candidate for the Planned Anesthesia: Yes Alternatives and Risks of Anesthesia Discussed w Pt/Guardian: Yes Pt/Guardian Understands and Agrees with Anesthesia Plan: Yes PreAnesthesia Questionnaire HEENT History: Reports: Allergic rhinitis, Cataract, Other (see below) Other HEENT History: 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 Cardiovascular History: Reports: Hypertension Respiratory History: Reports: Other (see below) Other Respiratory History: lung nodule Gastrointestinal History: Reports: Chronic diarrhea, Colon polyp, Diverticulosis , Gastritis, GERD, Helicobacter pylori, Hiatal hernia, PUD Genitourinary History: Reports: Urinary incontinence 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: Musculoskeletal History: Reports: Osteoarthritis, Osteoporosis Neurological History: Reports: Alzheimers disease Psychiatric History: Reports: Bipolar, Schizophrenia Other Psychiatric History: paranoia Endocrine/Metabolic History: Reports: Hypothyroidism Hematologic History: Reports: Anemia - Past Surgical History Cardiovascular Surgical History: Reports: None Respiratory Surgical History: Reports: None GI Surgical History: Reports: Cholecystectomy, Colonoscopy, EGD Female Surgical History: Reports: None, Breast biopsy ([place]), Cystoscopy, Hysterectomy Endocrine Surgical History: Reports: Other (see below) (thyroid surgery) Musculoskeletal Surgical History: Reports: Knee replacement, ORIF (wrist) - SUBSTANCE USE Smoking Status *Q: Unknown Ever Smoked Second Hand Smoke Exposure: No Recreational Drug Use History: No - HOME MEDS Home Medications: Home Meds Benzocaine/Menthol [Cepacol Sore Throat Lozenge] 1 tab PO Q4H PRN 10/27/16 [ History] Carboxymethyl/Glycerin/Poly80 [Refresh Optive Advanced Drops] 1 drop EYEBOTH BID 10/27/16 [History] Donepezil HCl [Donepezil HCl] 5 mg PO BEDTIME 10/27/16 [History] Hydrocortisone [Cortizone-10] 1 applic TOP BID PRN 10/27/16 [History] Levothyroxine [Synthroid] 50 mcg PO DAILY 10/27/16 [History] Lidocaine HCl [Aspercreme] 1 applic TOP QID PRN 10/27/16 [History] Magnesium Hydroxide [Milk of Magnesia] 400 mg PO QID PRN 10/27/16 [History] Metoclopramide [Reglan] 10 mg PO Q6H PRN 10/27/16 [History] Miracle Mouth Rinse 5 ml PO QID PRN 10/27/16 [History] Multivit-Min/FA/Lycopene/Lut [Century Adults 50+ Tablet] 1 tab PO DAILY [History] Naproxen Sodium [Aleve] 220 mg PO BID PRN 10/27/16 [History] Omeprazole Magnesium [Prilosec Otc] 20 mg PO BID PRN 10/27/16 [History] Oxybutynin Chloride [Ditropan Xl] 5 mg PO DAILY 10/27/16 [History] QUEtiapine Fumarate [Seroquel] 50 mg PO BEDTIME 10/27/16 [History] traMADol HCl [Tramadol HCl] 50 mg PO BID 10/27/16 [History] - CURRENT (IN HOUSE) MEDS Current Meds: Current Medications Sodium Chloride (Normal Saline) 1,000 mls @ 125 mls/hr IV ASDIRECTED HERACLIO Last Admin: 10/27/16 10:47 Dose: 125 mls/hr Sodium Chloride (Saline Flush) 10 ml FLUSH ASDIRECTED PRN PRN Reason: Keep Vein Open Last Admin: 10/27/16 10:50 Dose: 10 ml Sodium Chloride (Saline Flush) 10 ml FLUSH ONETIME PRN PRN Reason: IV FLUSH Last Admin: 10/27/16 12:03 Dose: 10 ml Discontinued Medications Bupivacaine HCl/Epinephrine Bitart (Marcaine 0.5%/Epinephrine 1:200,000) Confirm Administered Dose 50 ml .ROUTE .STK-MED ONE Stop: 10/27/16 14:56 Fentanyl (Sublimaze) Confirm Administered Dose 100 mcg .ROUTE .STK-MED ONE Stop: 10/27/16 15:03 Iopamidol (Isovue-300 (61%)) 100 ml IVPUSH ONETIME ONE Stop: 10/27/16 11:58 Last Admin: 10/27/16 12:03 Dose: 100 ml Lidocaine HCl (Xylocaine 1%) Confirm Administered Dose 50 ml .ROUTE .STK-MED ONE Stop: 10/27/16 14:56 Metoclopramide HCl (Reglan) 10 mg IVPUSH ONETIME ONE Stop: 10/27/16 13:39 Last Admin: 10/27/16 13:52 Dose: 10 mg Ondansetron HCl (Zofran) 4 mg IVPUSH ONETIME ONE Stop: 10/27/16 10:32 Last Admin: 10/27/16 10:47 Dose: 4 mg Propofol (Diprivan 20 Ml) Confirm Administered Dose 200 mg .ROUTE .STK-MED ONE Stop: 10/27/16 15:03 Succinylcholine Chloride (Succinylcholine In Ns Pf) Confirm Administered Dose 100 mg .ROUTE .STK-MED ONE Stop: 10/27/16 15:57 Preanesthetic Assessment - ANESTHESIA/TRANSFUSION/FAMILY HX Anesthesia/Transfusion History: Unknown - REVIEW OF SYSTEMS Constitutional: Reports: feeling ill 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 Respiratory: Reports: no symptoms Cardiovascular: Reports: no symptoms Other: Reports: None - PHYSICAL ASSESSMENT O2 Sat by Pulse Oximetry: 97 RR: 20 Vital Signs: Last Vital Signs Temp 36.3 C 10/27/16 09:57 Pulse 70 10/27/16 09:57 Resp 20 10/27/16 09:57 BP 191/98 H 10/27/16 09:57 Pulse Ox 97 10/27/16 09:57 Height: 1.57 m Weight: 73.482 kg NPO Status Date: 10/26/16 NPO Status Time: 19:30 - LAB Values: Laboratory Last Values WBC 7.96 K/mm3 (3.98-10.04) 10/27/16 11:08 RBC 5.36 M/mm3 (3.98-5.22) H 10/27/16 11:08 Hgb 15.3 gm/L (11.2-15.7) 10/27/16 11:08 Hct 47.0 % (34.1-44.9) H 10/27/16 11:08 MCV 87.7 fl (79.4-94.8) 10/27/16 11:08 MCH 28.5 pg (25.6-32.2) 10/27/16 11:08 MCHC 32.6 g/dl (32.2-35.5) 10/27/16 11:08 RDW Std Deviation 48.5 fL (36.4-46.3) H 10/27/16 11:08 Plt Count 340 K/mm3 (182-369) 10/27/16 11:08 MPV 9.5 fl (9.4-12.3) 10/27/16 11:08 Neut % (Auto) 81.6 % (34.0-71.1) H 10/27/16 11:08 Lymph % (Auto) 13.9 % (19.3-51.7) L 10/27/16 11:08 [place] % (Auto) 4.3 % (4.7-12.5) L 10/27/16 11:08 Eos % (Auto) 0 (0.7-5.8) L 10/27/16 11:08 Baso % (Auto) 0.1 % (0.1-1.2) 10/27/16 11:08 Neut # (Auto) 6.49 K/mm3 (1.56-6.13) H 10/27/16 11:08 Lymph # (Auto) 1.11 K/mm3 (1.18-3.74) L 10/27/16 11:08 [place] # (Auto) 0.34 K/mm3 (0.24-0.36) 10/27/16 11:08 Eos # (Auto) 0.00 K/mm3 (0.04-0.36) L 10/27/16 11:08 Baso # (Auto) 0.01 K/mm3 (0.01-0.08) 10/27/16 11:08 Sodium 142 mEq/L (136-145) 10/27/16 11:08 Potassium 3.4 mEq/L (3.5-5.1) L 10/27/16 11:08 Chloride 100 mEq/L (98-107) 10/27/16 11:08 Carbon Dioxide 26 mEq/L (21-32) 10/27/16 11:08 Anion Gap 19.4 (5-15) H 10/27/16 11:08 BUN 16 mg/dL (7-18) 10/27/16 11:08 Creatinine 1.1 mg/dL (0.55-1.02) H 10/27/16 11:08 Est Cr Clr Drug Dosing 32.26 mL/min 10/27/16 11:08 Estimated GFR (MDRD) 48 mL/min (>60) 10/27/16 11:08 BUN/Creatinine Ratio 14.5 (14-18) 10/27/16 11:08 Glucose 195 mg/dL (83-115) H 10/27/16 11:08 Lactic Acid 3.3 mmol/L (0.4-2.0) H 10/27/16 14:46 Calcium 10.2 mg/dL (8.5-10.1) H 10/27/16 11:08 Total Bilirubin 0.7 mg/dL (0.2-1.0) 10/27/16 11:08 AST 21 U/L (15-37) 10/27/16 11:08 ALT 27 U/L (14-59) 10/27/16 11:08 Alkaline Phosphatase 160 U/L (46-116) H 10/27/16 11:08 Troponin I < 0.017 ng/mL (0.00-0.056) 10/27/16 11:08 C-Reactive Protein 0.8 mg/dL (<1.0) 10/27/16 14:46 Total Protein 9.0 g/dl (6.4-8.2) H 10/27/16 11:08 Albumin 4.7 g/dl (3.4-5.0) 10/27/16 11:08 Globulin 4.3 gm/dL 10/27/16 11:08 Albumin/Globulin Ratio 1.1 (1-2) 10/27/16 11:08 Lipase 161 U/L (73-393) 10/27/16 11:08 Urine Color Light yellow (Yellow) 10/27/16 14:02 Urine Appearance Slt cloudy (Clear) H 10/27/16 14:02 Urine pH 8.5 (5.0-8.0) H 10/27/16 14:02 Ur Specific [place] 1.020 (1.005-1.030) 10/27/16 14:02 Urine Protein 1+ (Negative) H 10/27/16 14:02 Urine Glucose (UA) 1+ (Negative) H 10/27/16 14:02 Urine Ketones 2+ (Negative) H 10/27/16 14:02 Urine Occult Blood Trace-intact (Negative) H 10/27/16 14:02 Urine Nitrite Negative (Negative) 10/27/16 14:02 Urine Bilirubin Negative (Negative) 10/27/16 14:02 Urine Urobilinogen 0.2 (0.2-1.0) 10/27/16 14:02 Ur Leukocyte Esterase Negative (Negative) 10/27/16 14:02 Urine RBC 10-20 /hpf (0-5) H 10/27/16 14:02 Urine WBC 0-5 /hpf (0-5) 10/27/16 14:02 Ur Squamous Epith Cells 0-5 /hpf (0-5) 10/27/16 14:02 Amorphous Sediment Moderate /hpf (NOT SEEN) H 10/27/16 14:02 Urine Bacteria Few /hpf (FEW) 10/27/16 14:02 Urine Mucus Not seen /hpf (FEW) 10/27/16 14:02 - ALLERGIES Allergies/Adverse Reactions: Allergies Allergy/AdvReac Type Severity Reaction Status Date / Time acetaminophen [From Tylenol] Allergy Severe Cannot Verified 10/27/16 10:02 Remember
[2016-10-27] MEDS ORDERED: Naloxone 0.4 MG/ML SDV ONE (16:56)
[2016-10-27] MEDS ORDERED: Benzocaine/Cetylpyridinium/Menthol Lozenge MUCMEM PRN (17:07)
[2016-10-27] MEDS ORDERED: Ondansetron 4 MG/2 ML SDV IVPUSH PRN (17:07)
--- NOTE | 2016-10-27 17:07 | PCM.OPNOTE ---
- General Post-Op/Procedure Note Date of Surgery/Procedure: 10/27/16 Operative Procedure(s): Diagnostic laparoscopy, reduction of incarcerated hiatal hernia, diagnostic EGD with laparoscopic assisted placement of PEG tube Pre Op Diagnosis: Incarcerated hiatal hernia with gastric outlet obstruction Post-Op Diagnosis: Same and gastritis with hemorrhage Anesthesia Technique: General ET tube, Local Primary Surgeon: Queenie Sotelo Anesthesia Provider: Moreno Keller Pathology: None Fluid Replacement, Intraop: 750 (mL crystalloid ) EBL in mLs: 10 Drain/Tube Comments:: PEG tube secured at 3 cm at abdominal wall Complications: None Condition: Fair Free Text/Narrative:: INDICATION FOR PROCEDURE: The patient is a 81-year-old woman who is referred by Dr. Khoa Bangura in the emergency department for an incarcerated hiatal hernia with gastric outlet obstruction. The patient has Alzheimer's dementia and surgical intervention was discussed with her daughter, megan power of news production assistantSherri. She found the risks of the surgical intervention acceptable and agreed to proceed. DESCRIPTION OF PROCEDURE: The patient was taken to the operating room and placed in the supine position. Sequential compressive devices were placed on the bilateral lower extremities. Treatment antibiotics antibiotics were administered for possible gastric necrosis. After induction of general endotracheal anesthesia a Voss catheter was placed with drainage of clear yellow urine. The patient's pressure points were adequately padded. The abdomen was then prepped and draped in usual sterile fashion and an Ioban was applied. A stab incision was then made using a scalpel in the left upper quadrant after first injecting local anesthetic. A Veress needle was introduced into the abdomen. A water drop test was performed. The abdomen was then insufflated to 15 mm of mercury. A small left upper quadrant trocar incision was made. A 5 mm trocar was introduced into the abdomen using the Visiport technique. The abdomen was surveyed. The patient had significant scar tissue from previous operations. There was a window in the left upper quadrant which was relatively free of adhesions. The stomach was noted to be entirely within the chest with an exception of a small portion of the fundus. 2 additional 5 mm trocars were placed under direct visualization along the right costal margin and the epigastrium. Using atraumatic graspers, I attempted to reduce the stomach into the abdomen, this was not possible. The stomach did appear viable, from the small portion I could see. I then performed a diagnostic EGD. A standard Olympus gastroscope was inserted into the oropharynx and guided down the esophagus. 1 L of coffee-ground colored fluid was aspirated from the stomach. I was then able to detorse the stomach endoscopically and the antrum was noted. There was diffuse gastritis with areas of hemorrhage, but no necrosis. The scope was passed into the proximal jejunum and the duodenum which were unremarkable. There were no petechiae or ulcerations. The scope was straightened and withdrawn to the GE junction. I returned to the patient's abdomen and was now able to fully reduce the stomach laparoscopically. We then proceeded with gastropexy utilizing a PEG tube. The stomach was insufflated. Direct pressure over the abdomen was easily visible on the insufflated stomach wall. Local anesthetic was injected and a small skin incision was made. The introducer needle was placed into the stomach under direct visualization and the guidewire was threaded through the introducer needle. The snare was then placed down the gastroscope and the guidewire was grasped. The gastroscope was withdrawn along with the snare and guidewire the guidewire in the PEG tube were connected. The PEG tube was then pulled through the patient's mouth. The PEG tube was then pulled flush with the abdominal wall. The flange was then placed over the PEG tube and secured at 3 cm at the flange. The PEG tube was secured with 2-0 Prolene interrupted sutures through the flange. The clamp was applied and the PEG tube was trimmed. The cap was placed on the PEG tube. The PEG tube was placed to dependent drainage in a urometer bag. Folded 4 x 4's were placed as a drain sponge over the flange and secured with paper tape. The PEG tube placement was observed laparoscopically and was assisted by holding the stomach against the abdominal wall with an atraumatic grasper. Also , insufflation was decreased during this portion of the procedure to eliminate undue tension on the stomach. At the conclusion of the procedure there was no evidence of bleeding in the abdomen. The stomach was pink in appearance with no evidence of necrosis. The abdomen was desufflated and the trocars were removed. The trocar insertion sites were then closed using 4-0 Monocryl suture after injecting local anesthetic. Dermabond was placed over the skin incisions. The patient was awakened from anesthesia, extubated,and transferred to the recovery room in stable condition having tolerated the procedure well. An abdominal binder was applied prior to leaving the operating room. Sponge and instrument counts were reported as correct as the end of the case. POSTOPERATIVE PLAN: I discussed my intraoperative findings and post-operative recommendations with the patient's durable power of news production assistant, Sherri. The patient will be kept overnight in the intensive care unit for observation. I discussed her intraoperative findings with Dr. Josette Graves with the hospitalist service who will service attending for the patient while she is admitted. I will continue to follow along. The PEG tube is to be left to gravity drainage for the next 24 hours. Sips of clears for comfort may be provided. The patient also needs treatment for her gastritis.
--- NOTE | 2016-10-27 17:15 | PCM.POSTAN ---
POST ANESTHESIA ASSESSMENT - MENTAL STATUS Mental Status: alert - VITAL SIGNS Pulse Rate: 101 (98 after 5 mins) SaO2: 98 Resp Rate: 17 Blood Pressure: 132/68 Temperature: 37.6 C - RESPIRATORY Respiratory Status: respiratory rate WNL, airway patent, O2 saturation stable - CARDIOVASCULAR CV Status: pulse rate WNL, blood pressure stable - GASTROINTESTINAL GI Status: no symptoms - PAIN Pain Score: 0 - POST OP HYDRATION Hydration Status: adequate & stable
[2016-10-27] MEDS: Pantoprazole 40 MG Vial IVPUSH SCH (18:50)
[2016-10-27] MEDS: Lactated Ringers 1,000 ML IV SCH ×2 (18:51→19:42)
[2016-10-27] MEDS: fentaNYL 100 MCG/2 ML SDV IVPUSH PRN ×2 (19:41→22:04)
--- NOTE | 2016-10-27 20:20 | PCM.HP ---
H&P History of Present Illness - General Date of Service: 10/27/16 Source of Information: Provider History Limitations: Reports: No limitations, Altered mental status - History of Present Illness Initial Comments - Free Text/Narative: 81 year olf [place] resident evaluated in the ED pre op, presumptive diagnosis, incarcerated hiatal hernia. The medical record has been reviewed, no comment regarding ASHD is listed. That being said, the patient in all likelihood is able to perform 3 METS. Report from the staff member would indicate that she is able to do light cleaning and ADLs. PMH includes Alzheimer dementia, there is no apparent documented psychiatric component listed in [facility] progress notes. However it is listed in [place] [facility] [place] Nonetheless given the patient presentation with the risk and benefits, the patient should proceed to the operating room. No additional work up is required. The patient has had a history of HTN, hypothyroidism, hiatal hernia as well as dementia with "behavioral disturbance." The patient did not participate in the history portion of the H and P. It was reported that she had abdominal pain, a loss of appetite and recent nausea with vomiting. Palliative measures were unsuccessful. Onset of Symptoms: Reports: unknown/unsure Duration of Symptoms: Reports: Hour(s):, Getting worse Location: Reports: abdomen Severity: severe Improves with: Reports: None Worsens with: Reports: None Associated Symptoms: Reports: chest pain, nausea/vomiting - Related Data Allergies/Adverse Reactions: Allergies Allergy/AdvReac Type Severity Reaction Status Date / Time acetaminophen [From Tylenol] Allergy Intermediate Cannot Verified 10/27/16 17:14 Remember Home Medications: Home Meds Benzocaine/Menthol [Cepacol Sore Throat Lozenge] 1 tab PO Q4H PRN 10/27/16 [ History] Carboxymethyl/Glycerin/Poly80 [Refresh Optive Advanced Drops] 1 drop EYEBOTH BID 10/27/16 [History] Donepezil HCl [Donepezil HCl] 5 mg PO BEDTIME 10/27/16 [History] Hydrocortisone [Cortizone-10] 1 applic TOP BID PRN 10/27/16 [History] Levothyroxine [Synthroid] 50 mcg PO DAILY 10/27/16 [History] Lidocaine HCl [Aspercreme] 1 applic TOP QID PRN 10/27/16 [History] Magnesium Hydroxide [Milk of Magnesia] 400 mg PO QID PRN 10/27/16 [History] Metoclopramide [Reglan] 10 mg PO Q6H PRN 10/27/16 [History] Miracle Mouth Rinse 5 ml PO QID PRN 10/27/16 [History] Multivit-Min/FA/Lycopene/Lut [Century Adults 50+ Tablet] 1 tab PO DAILY [History] Naproxen Sodium [Aleve] 220 mg PO BID PRN 10/27/16 [History] Omeprazole Magnesium [Prilosec Otc] 20 mg PO BID PRN 10/27/16 [History] Oxybutynin Chloride [Ditropan Xl] 5 mg PO DAILY 10/27/16 [History] QUEtiapine Fumarate [Seroquel] 50 mg PO BEDTIME 10/27/16 [History] traMADol HCl [Tramadol HCl] 50 mg PO BID 10/27/16 [History] Past Medical History HEENT History: Reports: Allergic rhinitis, Cataract, Other (see below) Other HEENT History: 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 Cardiovascular History: Reports: Hypertension Respiratory History: Reports: Other (see below) Other Respiratory History: lung nodule Gastrointestinal History: Reports: Chronic diarrhea, Colon polyp, Diverticulosis , Gastritis, GERD, Helicobacter pylori, Hiatal hernia, PUD Genitourinary History: Reports: Urinary incontinence 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: Musculoskeletal History: Reports: Osteoarthritis, Osteoporosis Neurological History: Reports: Alzheimers disease Psychiatric History: Reports: Bipolar, Schizophrenia Other Psychiatric History: paranoia Endocrine/Metabolic History: Reports: Hypothyroidism Hematologic History: Reports: Anemia - Past Surgical History Cardiovascular Surgical History: Reports: None Respiratory Surgical History: Reports: None GI Surgical History: Reports: Cholecystectomy, Colonoscopy, EGD Female Surgical History: Reports: None, Breast biopsy, Cystoscopy, Hysterectomy Musculoskeletal Surgical History: Reports: Knee replacement, ORIF Social & Family History - Family History Family Medical History: Unobtainable - Tobacco Use Smoking Status *Q: Unknown Ever Smoked Second Hand Smoke Exposure: No - Caffeine Use Caffeine Use: Reports: Coffee - Recreational Drug Use Recreational Drug Use: No - Living Situation & Occupation Living situation: Reports: extended care facility Occupation: retired H&P Review of Systems - Review of Systems: Review Of Systems: See Below General: Reports: decreased appetite HEENT: Reports: no symptoms Pulmonary: Reports: No Symptoms Cardiovascular: Reports: chest pain Gastrointestinal: Reports: Abdominal pain, Nausea, Vomiting Musculoskeletal: Reports: no symptoms Skin: Reports: no symptoms Psychiatric: Reports: confusion Neurological: Reports: No Symptoms Hematologic/Lymphatic: Reports: no symptoms Immunologic: Reports: no symptoms Exam - Exam Exam: See Below - Vital Signs Vital Signs: Last Vital Signs Temp 37.7 C 10/27/16 18:00 Pulse 101 H 10/27/16 18:00 Resp 24 H 10/27/16 18:00 BP 137/75 10/27/16 18:00 Pulse Ox 95 10/27/16 18:00 Weight: 74.5 kg - Exam Quality Assessment: DVT prophylaxis General: mild distress, lethargic. No: severe distress HEENT: Conjunctiva clear, Nares patent, Normal nasal septum, Pupils equal, Pupils reactive Neck: trachea midline Lungs: Normal respiratory effort, Decreased breath sounds Cardiovascular: regular rate Abdomen: normal bowel sounds, soft, distention, guarding (no), rebound (no), tenderness (Female) Exam: Deferred Rectal (Female) Exam: Deferred Back Exam: normal inspection Extremities: normal pulses Skin: warm Neurological: cranial nerves intact Neuro Extensive - Mental Status: No: alert Neuro Extensive - Motor, Sensory, Reflexes: CN II-XII intact (grossly) - Patient Data Result Diagrams: 10/29/16 06:38 10/29/16 06:38 *Q Meaningful Use (ADM) - VTE *Q VTE Criteria *Q: - Stroke *Q Stroke Criteria *Q: - AMI *Q AMI Criteria *Q: Problem List Initiated/Reviewed/Updated: Yes Orders Last 24hrs: Active Orders 24 hr Category Date Time Status Antiembolic Devices [RC] .Routine Care 10/27/16 17:11 Active Cardiac Monitoring [RC] . DIRECTED Care 10/27/16 17:07 Active Voss Catheter Insertion [Insert Urinary Catheter] [OM. Care 10/27/16 18:00 Ordered PC] Q24H Gastrointestinal Tube Mgmt [RC] ASDIRECTED Care 10/27/16 17:08 Active Head of Bed Elevation [RC] ASDIRECTED Care 10/27/16 17:08 Active Notify Provider Intake and Out [RC] PRN Care 10/27/16 17:09 Active Notify Provider Vital Signs [RC] PRN Care 10/27/16 17:09 Active Oxygen Therapy [RC] PRN Care 10/27/16 17:07 Active Pulse Oximetry [RC] CONTINUOUS Care 10/27/16 17:09 Active RT Incentive Spirometry [RC] Q1HWA Care 10/27/16 17:07 Active Up With Assistance [RC] ASDIRECTED Care 10/27/16 17:07 Active Urinary Catheter Assessment [RC] ASDIRECTED Care 10/27/16 15:27 Active Urinary Catheter Assessment [RC] ASDIRECTED Care 10/27/16 17:07 Active Vital Signs [RC] PER UNIT ROUTINE Care 10/27/16 17:07 Active Respiratory Care Assess and Treatment [CONS] Routine Cons 10/27/16 17:07 Active Nothing Per Oral Diet [DIET] Diet 10/27/16 Breakfast Active BASIC METABOLIC PANEL,BMP [CHEM] AM Lab 10/28/16 05:11 Ordered CBC WITH AUTO DIFF [HEME] AM Lab 10/28/16 05:11 Ordered Benzocaine/Cetylpyrd/Menthol [Cepacol Sore Throat] Med 10/27/16 17:07 Active 1 lozenge MUCMEM Q1H PRN Lactated Ringers [Ringers, Lactated] 1,000 ml Med 10/27/16 17:15 Active IV ASDIRECTED Ondansetron [Zofran] Med 10/27/16 17:07 Active 4 mg IVPUSH Q6H PRN Pantoprazole [Protonix IV] Med 10/27/16 17:15 Active 40 mg IVPUSH DAILY fentaNYL [Sublimaze] Med 10/27/16 17:07 Active 25 mcg IVPUSH Q1H PRN Abdominal Binder [OM.PC] Per Unit Routine Oth 10/27/16 17:09 Ordered DVT/VTE Prophylaxis Reflex [OM.PC] Routine Oth 10/27/16 17:07 Ordered Sequential Compression Device [OM.PC] Per Unit Routine Oth 10/27/16 17:12 Ordered Resuscitation Status Routine Resus Stat 10/27/16 17:07 Ordered Medication Orders Benzocaine/Menthol (Cepacol Sore Throat) 1 lozenge MUCMEM Q1H PRN PRN Reason: Sore Throat Fentanyl (Sublimaze) 25 mcg IVPUSH Q1H PRN PRN Reason: Pain (severe 7-10) Stop: 10/28/16 17:11 Last Admin: 10/27/16 19:41 Dose: 25 mcg Lactated Ringer's (Ringers, Lactated) 1,000 mls @ 100 mls/hr IV ASDIRECTED COUNT INCLUDES THE [facility] Last Admin: 10/27/16 19:42 Dose: 100 mls/hr Infusion: 10/27/16 19:42 Dose: 100 mls/hr Admin: 10/27/16 18:51 Dose: 100 mls/hr Ondansetron HCl (Zofran) 4 mg IVPUSH Q6H PRN PRN Reason: Nausea/Vomiting Pantoprazole Sodium (Protonix Iv) 40 mg IVPUSH DAILY COUNT INCLUDES THE [facility] Last Admin: 10/27/16 18:50 Dose: 40 mg Assessment/Plan Comment:: Impression/Plan: [place] resident with incarcerated hiatal hernia, was seen and examined prior to surgery Pre/Post op DX ICHH with gastric outlet obstruction Post op: dx lap; reduction of incarcerated hiatal hernia; dx EGD with lap assisted PEG tube Chronic HYN Hypothyroidism Hx of positive H Pylori Alzheimer Dementia Diverticulitis Plan: ICU post op 24-48 hours Transfer care of patient to hospitalist service as primary Gen surg for post op management Labs Qd NPO, follow, I/Os; advance diet as appropriate DVT/GI prophylaxis
[2016-10-28] MEDS: fentaNYL 100 MCG/2 ML SDV IVPUSH PRN ×5 (00:11→12:51)
[2016-10-28] MEDS: Lactated Ringers 1,000 ML IV SCH (04:04)
--- NOTE | 2016-10-28 07:38 | PCM48HPAN ---
Post Anesthesia Note - EVALUATION WITHIN 48HRS OF ANESTHETIC Vital Signs in Normal Range: Yes Patient Participated in Evaluation: No (Pt sleeping, sopke with nurse and she said patient is back to her baseline) Respiratory Function Stable: Yes Airway Patent: Yes Cardiovascular Function Stable: Yes Hydration Status Stable: Yes Pain Control Satisfactory: Yes Nausea and Vomiting Control Satisfactory: Yes Mental Status Recovered: Yes
[2016-10-28] MEDS: Pantoprazole 40 MG Vial IVPUSH SCH (08:47)
--- NOTE | 2016-10-28 10:34 | PCM.PN ---
- General Info Date of Service: 10/28/16 Functional Status: Reports: pain controlled, urinating - Review of Systems General: Reports: No Symptoms HEENT: Reports: no symptoms Pulmonary: Reports: no symptoms Cardiovascular: Reports: No Symptoms Gastrointestinal: Reports: No symptoms Genitourinary: Reports: no symptoms Musculoskeletal: Reports: no symptoms Skin: Reports: no symptoms Neurological: Reports: No Symptoms Psychiatric: Reports: confusion - Patient Data Vitals - most recent: Last Vital Signs Temp 36.5 C 10/28/16 08:00 Pulse 68 10/28/16 08:00 Resp 14 10/28/16 08:00 BP 130/67 10/28/16 08:00 Pulse Ox 95 10/28/16 08:00 Weight - most recent: 70.987 kg I&O - last 24 hours: Intake & Output 10/27/16 10/28/16 10/28/16 22:59 06:59 14:59 Intake Total 850 990 Output Total 250 280 215 Balance 600 710 -215 Lab Results last 24 hrs: Laboratory Results - last 24 hr 10/28/16 10/28/16 10/28/16 Range/Units 05:46 05:46 05:46 WBC 11.24 H (3.98-10.04) K/mm3 RBC 4.59 (3.98-5.22) M/mm3 Hgb 13.4 (11.2-15.7) gm/L Hct 41.4 (34.1-44.9) % MCV 90.2 (79.4-94.8) fl MCH 29.2 (25.6-32.2) pg MCHC 32.4 (32.2-35.5) g/dl RDW Std Deviation 49.3 H (36.4-46.3) fL Plt Count 322 (182-369) K/mm3 MPV 9.9 (9.4-12.3) fl Neut % (Auto) 69.7 (34.0-71.1) % Lymph % (Auto) 15.8 L (19.3-51.7) % [place] % (Auto) 14.2 H (4.7-12.5) % Eos % (Auto) 0 L (0.7-5.8) Baso % (Auto) 0.1 (0.1-1.2) % Neut # (Auto) 7.83 H (1.56-6.13) K/mm3 Lymph # (Auto) 1.78 (1.18-3.74) K/mm3 [place] # (Auto) 1.60 H (0.24-0.36) K/mm3 Eos # (Auto) 0.00 L (0.04-0.36) K/mm3 Baso # (Auto) 0.01 (0.01-0.08) K/mm3 Manual Slide Review Abnormal smear Sodium 143 (136-145) mEq/L Potassium 3.1 L (3.5-5.1) mEq/L Chloride 105 (98-107) mEq/L Carbon Dioxide 29 (21-32) mEq/L Anion Gap 12.1 (5-15) BUN 14 (7-18) mg/dL Creatinine 1.0 (0.55-1.02) mg/dL Est Cr Clr Drug Dosing 35.49 mL/min Estimated GFR (MDRD) 53 (>60) mL/min BUN/Creatinine Ratio 14.0 (14-18) Glucose 117 H (83-115) mg/dL Calcium 9.0 (8.5-10.1) mg/dL Magnesium 2.2 (1.8-2.4) mg/dl C-Reactive Protein 1.8 H* (<1.0) mg/dL Med Orders - Current: Current Medications Benzocaine/Menthol (Cepacol Sore Throat) 1 lozenge MUCMEM Q1H PRN PRN Reason: Sore Throat Fentanyl (Sublimaze) 25 mcg IVPUSH Q1H PRN PRN Reason: Pain (severe 7-10) Stop: 10/28/16 17:11 Last Admin: 10/28/16 08:43 Dose: 25 mcg Lactated Ringer's (Ringers, Lactated) 1,000 mls @ 100 mls/hr IV ASDIRECTED [facility] Last Admin: 10/28/16 04:04 Dose: 100 mls/hr Ondansetron HCl (Zofran) 4 mg IVPUSH Q6H PRN PRN Reason: Nausea/Vomiting Pantoprazole Sodium (Protonix Iv) 40 mg IVPUSH DAILY [facility] Last Admin: 10/28/16 08:47 Dose: 40 mg Discontinued Medications Bupivacaine HCl/Epinephrine Bitart (Marcaine 0.5%/Epinephrine 1:200,000) Confirm Administered Dose 50 ml .ROUTE .STK-MED ONE Stop: 10/27/16 14:56 Last Admin: 10/27/16 15:47 Dose: 20 ml Ertapenem (Invanz) Confirm Administered Dose 1 gm .ROUTE .STK-MED ONE Stop: 10/27/16 15:57 Fentanyl (Sublimaze) Confirm Administered Dose 100 mcg .ROUTE .STK-MED ONE Stop: 10/27/16 15:03 Hydromorphone HCl (Dilaudid) Confirm Administered Dose 1 mg .ROUTE .STK-MED ONE Stop: 10/27/16 15:57 Sodium Chloride (Normal Saline) 1,000 mls @ 125 mls/hr IV ASDIRECTED [facility] Last Admin: 10/27/16 10:47 Dose: 125 mls/hr Lidocaine HCl (Xylocaine-Mpf 1%) Confirm Administered Dose 6 mls @ as directed .ROUTE .ST-MED ONE Stop: 10/27/16 15:57 Iopamidol (Isovue-300 (61%)) 100 ml IVPUSH ONETIME ONE Stop: 10/27/16 11:58 Last Admin: 10/27/16 12:03 Dose: 100 ml Lidocaine HCl (Xylocaine 1%) Confirm Administered Dose 50 ml .ROUTE .STK-MED ONE Stop: 10/27/16 14:56 Last Admin: 10/27/16 15:47 Dose: 20 ml Metoclopramide HCl (Reglan) 10 mg IVPUSH ONETIME ONE Stop: 10/27/16 13:39 Last Admin: 10/27/16 13:52 Dose: 10 mg Naloxone HCl (Narcan) Confirm Administered Dose 0.4 mg .ROUTE .STK-MED ONE Stop: 10/27/16 16:57 Ondansetron HCl (Zofran) 4 mg IVPUSH ONETIME ONE Stop: 10/27/16 10:32 Last Admin: 10/27/16 10:47 Dose: 4 mg Propofol (Diprivan 20 Ml) Confirm Administered Dose 200 mg .ROUTE .STK-MED ONE Stop: 10/27/16 15:03 Sodium Chloride (Saline Flush) 10 ml FLUSH ASDIRECTED PRN PRN Reason: Keep Vein Open Last Admin: 10/27/16 10:50 Dose: 10 ml Sodium Chloride (Saline Flush) 10 ml FLUSH ONETIME PRN PRN Reason: IV FLUSH Last Admin: 10/27/16 12:03 Dose: 10 ml Succinylcholine Chloride (Succinylcholine In Ns Pf) Confirm Administered Dose 100 mg .ROUTE .STK-MED ONE Stop: 10/27/16 15:57 - Exam Quality Assessment: urine catheter (stopped), DVT prophylaxis General: alert, no acute distress HEENT: Pupils equal, Pupils reactive, EOMI Neck: supple, trachea midline Lungs: Normal respiratory effort Cardiovascular: Regular Rate, Regular Rhythm Abdomen: bowel sounds present, soft, no distension, tenderness (Female) Exam: Deferred Back Exam: normal inspection Extremities: normal pulses Skin: warm Wound/Incisions: healing well, dressing dry and intact (binder) Neurological: no new focal deficit Psy/Mental Status: alert - Problem List Review Problem List Initiated/Reviewed/Updated: Yes - My Orders Last 24 Hours: My Active Orders 10/28/16 05:50 CULTURE MRSA SURVEY [RM] Routine 10/28/16 09:00 PT Evaluation and Treatment [CONS] Routine 10/28/16 10:00 Consult to Occupational Therapy [OT Evaluation and Treatment] [CONS] Routine 10/29/16 05:00 CRP [C-REACTIVE PROTEIN] [CHEM] DAILY MAGNESIUM [CHEM] DAILY 10/29/16 08:00 Consult to Care Management [Consult to Case Management] [CONS] Routine 10/30/16 05:00 CRP [C-REACTIVE PROTEIN] [CHEM] DAILY MAGNESIUM [CHEM] DAILY - Plan Plan:: Impression: POD 1 Incarcerated hiatal hernia; s/p reduction; dx EGD with lap assisted PEG tube Chronic Alzheimer dementia with psychotic features HTN Hypothyroidism Diverticulitis Plan: Pain mgt NPO except meds; resume home meds IVF; continue davis post op 24 hours PEG tub care with BID flushes as ordered by general surgery DVT/GI prophylaxis
[2016-10-28] MEDS ORDERED: 50% Dextrose in Water 50 ML Syringe IVPUSH PRN (15:34)
[2016-10-28] MEDS: Insulin Aspart 100 Units/ML 3 ML Pen SUBCUT SCH (17:47)
[2016-10-29] MEDS: Insulin Aspart 100 Units/ML 3 ML Pen SUBCUT SCH ×5 (02:23→23:51)
[2016-10-29] MEDS: Haloperidol Lactate 5 MG/ML SDV IVPUSH PRN ×2 (02:59→10:05)
[2016-10-29] MEDS: LORazepam 2 MG/ML MDV IVPUSH PRN ×3 (02:59→23:47)
[2016-10-29] MEDS: Pantoprazole 40 MG Vial IVPUSH SCH (10:05)
[2016-10-29] MEDS ORDERED: QUEtiapine 25 MG Tab PO ONE (11:44)
[2016-10-29] MEDS: Levothyroxine 50 MCG Tab PO SCH (12:21)
[2016-10-29] MEDS: Oxybutynin 5 MG Tab.ER PO SCH (12:22)
--- NOTE | 2016-10-29 12:29 | PCM.PN ---
- General Info Date of Service: 10/29/16 Functional Status: Reports: urinating (davis) - Review of Systems General: Reports: No Symptoms HEENT: Reports: no symptoms Pulmonary: Reports: no symptoms Cardiovascular: Reports: No Symptoms Gastrointestinal: Reports: No symptoms Genitourinary: Reports: no symptoms Musculoskeletal: Reports: no symptoms Skin: Reports: no symptoms Neurological: Reports: No Symptoms Psychiatric: Reports: no symptoms, other (restlessness in evening) - Patient Data Vitals - most recent: Last Vital Signs Temp 36.7 C 10/29/16 08:00 Pulse 84 10/29/16 08:00 Resp 18 10/29/16 08:00 BP 136/88 10/29/16 08:00 Pulse Ox 99 10/29/16 08:00 Weight - most recent: 70.987 kg I&O - last 24 hours: Intake & Output 10/28/16 10/29/16 10/29/16 22:59 06:59 14:59 Intake Total 1259 300 240 Output Total 810 1270 300 Balance 449 -970 -60 Lab Results last 24 hrs: Laboratory Results - last 24 hr 10/28/16 10/29/16 10/29/16 Range/Units 17:45 04:03 06:38 WBC (3.98-10.04) K/mm3 RBC (3.98-5.22) M/mm3 Hgb (11.2-15.7) gm/L Hct (34.1-44.9) % MCV (79.4-94.8) fl MCH (25.6-32.2) pg MCHC (32.2-35.5) g/dl RDW Std Deviation (36.4-46.3) fL Plt Count (182-369) K/mm3 MPV (9.4-12.3) fl Neut % (Auto) (34.0-71.1) % Lymph % (Auto) (19.3-51.7) % [place] % (Auto) (4.7-12.5) % Eos % (Auto) (0.7-5.8) Baso % (Auto) (0.1-1.2) % Neut # (Auto) (1.56-6.13) K/mm3 Lymph # (Auto) (1.18-3.74) K/mm3 [place] # (Auto) (0.24-0.36) K/mm3 Eos # (Auto) (0.04-0.36) K/mm3 Baso # (Auto) (0.01-0.08) K/mm3 Sodium 142 (136-145) mEq/L Potassium 3.4 L (3.5-5.1) mEq/L Chloride 106 (98-107) mEq/L Carbon Dioxide 25 (21-32) mEq/L Anion Gap 14.4 (5-15) BUN 10 (7-18) mg/dL Creatinine 1.0 (0.55-1.02) mg/dL Est Cr Clr Drug Dosing 35.49 mL/min Estimated GFR (MDRD) 53 (>60) mL/min BUN/Creatinine Ratio 10.0 L (14-18) Glucose 104 (83-115) mg/dL POC Glucose 102 100 (83-110) mg/dL Calcium 9.1 (8.5-10.1) mg/dL Magnesium 2.1 (1.8-2.4) mg/dl C-Reactive Protein 3.5 H* (<1.0) mg/dL 10/29/16 10/29/16 Range/Units 06:38 12:20 WBC 10.07 H (3.98-10.04) K/mm3 RBC 4.52 (3.98-5.22) M/mm3 Hgb 13.1 (11.2-15.7) gm/L Hct 40.8 (34.1-44.9) % MCV 90.3 (79.4-94.8) fl MCH 29.0 (25.6-32.2) pg MCHC 32.1 L (32.2-35.5) g/dl RDW Std Deviation 48.1 H (36.4-46.3) fL Plt Count 294 (182-369) K/mm3 MPV 10.1 (9.4-12.3) fl Neut % (Auto) 72.4 H (34.0-71.1) % Lymph % (Auto) 15.1 L (19.3-51.7) % [place] % (Auto) 12.0 (4.7-12.5) % Eos % (Auto) 0.1 L (0.7-5.8) Baso % (Auto) 0.2 (0.1-1.2) % Neut # (Auto) 7.29 H (1.56-6.13) K/mm3 Lymph # (Auto) 1.52 (1.18-3.74) K/mm3 [place] # (Auto) 1.21 H (0.24-0.36) K/mm3 Eos # (Auto) 0.01 L (0.04-0.36) K/mm3 Baso # (Auto) 0.02 (0.01-0.08) K/mm3 Sodium (136-145) mEq/L Potassium (3.5-5.1) mEq/L Chloride (98-107) mEq/L Carbon Dioxide (21-32) mEq/L Anion Gap (5-15) BUN (7-18) mg/dL Creatinine (0.55-1.02) mg/dL Est Cr Clr Drug Dosing mL/min Estimated GFR (MDRD) (>60) mL/min BUN/Creatinine Ratio (14-18) Glucose (83-115) mg/dL POC Glucose 137 H (83-110) mg/dL Calcium (8.5-10.1) mg/dL Magnesium (1.8-2.4) mg/dl C-Reactive Protein (<1.0) mg/dL Med Orders - Current: Current Medications Dextrose/Water (Dextrose 50% In Water) 50 ml IVPUSH ASDIRECTED PRN PRN Reason: Hypoglycemia Donepezil HCl (Aricept) 5 mg PO BEDTIME HERACLIO Haloperidol Lactate (Haldol) 2 mg IVPUSH Q8H PRN PRN Reason: Agitation Last Admin: 10/29/16 10:05 Dose: 2 mg Potassium Cl/Dextrose/Lact Ringer's (D5 Lr With 20 Meq Kcl) 1,000 mls @ 100 mls /hr IV ASDIRECTED HERACLIO Insulin Aspart (Novolog) 0 unit SUBCUT Q6H HERACLIO PRN Reason: Protocol Last Admin: 10/29/16 05:13 Dose: Not Given Levothyroxine Sodium (Synthroid) 50 mcg PO DAILY HERACLIO Last Admin: 10/29/16 12:21 Dose: 50 mcg Lorazepam (Ativan) 0.5 mg IVPUSH Q8H PRN PRN Reason: Agitation Last Admin: 10/29/16 11:01 Dose: 0.5 mg Oxybutynin Chloride (Oxybutynin Er) 5 mg PO DAILY [facility] Last Admin: 10/29/16 12:22 Dose: 5 mg Quetiapine Fumarate (Seroquel) 50 mg PO BEDTIME HERACLIO Discontinued Medications Benzocaine/Menthol (Cepacol Sore Throat) 1 lozenge MUCMEM Q1H PRN PRN Reason: Sore Throat Bupivacaine HCl/Epinephrine Bitart (Marcaine 0.5%/Epinephrine 1:200,000) Confirm Administered Dose 50 ml .ROUTE .STK-MED ONE Stop: 10/27/16 14:56 Last Admin: 10/27/16 15:47 Dose: 20 ml Ertapenem (Invanz) Confirm Administered Dose 1 gm .ROUTE .STK-MED ONE Stop: 10/27/16 15:57 Fentanyl (Sublimaze) Confirm Administered Dose 100 mcg .ROUTE .STK-MED ONE Stop: 10/27/16 15:03 Fentanyl (Sublimaze) 25 mcg IVPUSH Q1H PRN PRN Reason: Pain (severe 7-10) Stop: 10/28/16 17:11 Last Admin: 10/28/16 12:51 Dose: 25 mcg Hydromorphone HCl (Dilaudid) Confirm Administered Dose 1 mg .ROUTE .STK-MED ONE Stop: 10/27/16 15:57 Sodium Chloride (Normal Saline) 1,000 mls @ 125 mls/hr IV ASDIRECTED HERACLIO Last Admin: 10/27/16 10:47 Dose: 125 mls/hr Lidocaine HCl (Xylocaine-Mpf 1%) Confirm Administered Dose 6 mls @ as directed .ROUTE .STK-MED ONE Stop: 10/27/16 15:57 Lactated Ringer's (Ringers, Lactated) 1,000 mls @ 100 mls/hr IV ASDIRECTED EHRACLIO Last Admin: 10/28/16 04:04 Dose: 100 mls/hr Potassium Chloride 40 meq/ (Lactated Ringer's) 1,020 mls @ 102 mls/hr IV ASDIRECTED HERACLIO Stop: 10/29/16 01:00 Last Admin: 10/28/16 14:35 Dose: 102 mls/hr Iopamidol (Isovue-300 (61%)) 100 ml IVPUSH ONETIME ONE Stop: 10/27/16 11:58 Last Admin: 10/27/16 12:03 Dose: 100 ml Lidocaine HCl (Xylocaine 1%) Confirm Administered Dose 50 ml .ROUTE .STK-MED ONE Stop: 10/27/16 14:56 Last Admin: 10/27/16 15:47 Dose: 20 ml Metoclopramide HCl (Reglan) 10 mg IVPUSH ONETIME ONE Stop: 10/27/16 13:39 Last Admin: 10/27/16 13:52 Dose: 10 mg Naloxone HCl (Narcan) Confirm Administered Dose 0.4 mg .ROUTE .STK-MED ONE Stop: 10/27/16 16:57 Ondansetron HCl (Zofran) 4 mg IVPUSH ONETIME ONE Stop: 10/27/16 10:32 Last Admin: 10/27/16 10:47 Dose: 4 mg Ondansetron HCl (Zofran) 4 mg IVPUSH Q6H PRN PRN Reason: Nausea/Vomiting Pantoprazole Sodium (Protonix Iv) 40 mg IVPUSH DAILY HERACLIO Last Admin: 10/29/16 10:05 Dose: 40 mg Propofol (Diprivan 20 Ml) Confirm Administered Dose 200 mg .ROUTE .STK-MED ONE Stop: 10/27/16 15:03 Quetiapine Fumarate (Seroquel) 50 mg PO ONETIME ONE Stop: 10/29/16 11:45 Last Admin: 10/29/16 12:21 Dose: 50 mg Sodium Chloride (Saline Flush) 10 ml FLUSH ASDIRECTED PRN PRN Reason: Keep Vein Open Last Admin: 10/27/16 10:50 Dose: 10 ml Sodium Chloride (Saline Flush) 10 ml FLUSH ONETIME PRN PRN Reason: IV FLUSH Last Admin: 10/27/16 12:03 Dose: 10 ml Succinylcholine Chloride (Succinylcholine In Ns Pf) Confirm Administered Dose 100 mg .ROUTE .STK-MED ONE Stop: 10/27/16 15:57 - Exam Quality Assessment: urine catheter (dc today), DVT prophylaxis General: alert, no acute distress HEENT: Pupils equal, Pupils reactive, EOMI Neck: supple, trachea midline, no JVD Lungs: Normal respiratory effort Cardiovascular: Regular Rate Abdomen: bowel sounds present, no distension, rigidity (no), rebound (no), guarding (no), tenderness (Female) Exam: Deferred Back Exam: normal inspection Extremities: normal pulses Skin: warm Neurological: no new focal deficit Psy/Mental Status: alert - Problem List & Annotations (1) Hiatal hernia SNOMED Code(s): 31570031 Code(s): K44.9 - DIAPHRAGMATIC HERNIA WITHOUT OBSTRUCTION OR GANGRENE Status: Acute Current Visit: Yes (2) Hiatal hernia with obstruction but no gangrene SNOMED Code(s): 88332939 Code(s): K44.0 - DIAPHRAGMATIC HERNIA WITH OBSTRUCTION, WITHOUT GANGRENE Status: Acute Current Visit: Yes (3) Nausea and vomiting SNOMED Code(s): 31681734 Code(s): R11.2 - NAUSEA WITH VOMITING, UNSPECIFIED Status: Acute Current Visit: Yes Qualifiers: Vomiting type: unspecified Vomiting Intractability: intractable Qualified Code(s): R11.2 - Nausea with vomiting, unspecified (4) Atypical chest pain SNOMED Code(s): 734443410 Code(s): R07.89 - OTHER CHEST PAIN Status: Acute Current Visit: No (5) Coffee ground emesis SNOMED Code(s): 819530092, 790574142 Code(s): K92.0 - HEMATEMESIS Status: Acute Current Visit: No (6) Dementia SNOMED Code(s): 71594274 Code(s): F03.90 - UNSPECIFIED DEMENTIA WITHOUT BEHAVIORAL DISTURBANCE Status: Acute Current Visit: No (7) Dizziness SNOMED Code(s): 552256093 Code(s): R42 - DIZZINESS AND GIDDINESS Status: Acute Current Visit: No Onset Date: 02/11/14 - Problem List Review Problem List Initiated/Reviewed/Updated: Yes - My Orders Last 24 Hours: My Active Orders 10/28/16 15:34 Blood Glucose Check, Bedside [RC] Q6HR Dextrose 50% in Water 50 ml IVPUSH ASDIRECTED PRN 10/28/16 17:54 PEG Tube Management [Percutaneous Endoscopic Gastostomy Tube] [OM.PC] Routine 10/28/16 18:00 Insulin Aspart [NovoLOG] See Protocol SUBCUT Q6H 10/29/16 01:00 Dextrose 5%-Lact Ringers w/KCl [D5 LR with 20 mEq KCl] 1,000 ml IV ASDIRECTED 10/29/16 02:49 LORazepam [Ativan] 0.5 mg IVPUSH Q8H PRN 10/29/16 02:50 Haloperidol Lactate [Haldol] 2 mg IVPUSH Q8H PRN 10/29/16 03:00 Restraint Eval Need to Continue - 24 Hrs [OM.PC] Daily Restraint Initiate Non-VIOL/Non-SD [OM.PC] Stat Restraint Monitoring Non-VIOL/Non-SD [OM.PC] Daily 10/29/16 08:00 Consult to Care Management [Consult to Case Management] [CONS] Routine 10/29/16 10:30 Levothyroxine [Synthroid] 50 mcg PO DAILY Oxybutynin [Oxybutynin ER] 5 mg PO DAILY 10/29/16 10:34 Patient Status [ADT] Routine 10/29/16 21:00 Donepezil [Aricept] 5 mg PO BEDTIME QUEtiapine [SEROquel] 50 mg PO BEDTIME 10/30/16 03:00 Restraint Eval Need to Continue - 24 Hrs [OM.PC] Daily Restraint Monitoring Non-VIOL/Non-SD [OM.PC] Daily 10/30/16 05:00 BASIC METABOLIC PANEL,BMP [CHEM] DAILY CBC WITH AUTO DIFF [HEME] DAILY CRP [C-REACTIVE PROTEIN] [CHEM] DAILY MAGNESIUM [CHEM] DAILY 10/31/16 05:00 BASIC METABOLIC PANEL,BMP [CHEM] DAILY CBC WITH AUTO DIFF [HEME] DAILY - Plan Plan:: Impression/Plan: POD #2 ICHH with outlet obstruction, decompression; gastropexy with PEG tube Chronic HTN Hypothyroidism Hx of positive H Pylori Alzheimer Dementia Diverticulitis Plan: ICU post op change to MS abram davis 1:1 in evening for increasing confusion/restlessness; meds prn as ordered. Gen surg for post op management, advanced diet PEG tube flushes, 30 cc BID; had drainage which resolved, see nursing note. Labs Qd [place] I/Os; advance diet as appropriate DVT/GI prophylaxis
[2016-10-29] MEDS ORDERED: LORazepam 2 MG/ML MDV IVPUSH ONE (12:49)
[2016-10-29] MEDS ORDERED: Haloperidol Lactate 5 MG/ML SDV IVPUSH ONE (12:49)
[2016-10-29] MEDS: Dextrose 5%-Lact Ringers w/KCl 1,000 ML IV SCH (14:11)
--- NOTE | 2016-10-29 17:27 | PCM.CONSN ---
- General Info Date of Service: 10/28/16 Subjective Update: When I presented to examine the patient this morning, the nurse on dutyexpress concerns that there was feculent matter coming from the patient's PEG tube. Patient has been afebrile overnight. Was quite agitated overnight consistent with ing. Resting comfortably now. - Review of Systems Systems Review Comment:: No issues overnight. Afebrile. Patient denies pain, confused. - Patient Data Vitals - most recent: Last Vital Signs Temp 97.8 F 10/29/16 15:16 Pulse 57 L 10/29/16 15:16 Resp 16 10/29/16 15:16 BP 155/75 H 10/29/16 15:16 Pulse Ox 95 10/29/16 15:16 Weight - most recent: 156 lb 8 oz I&O - last 24 hours: Intake & Output 10/29/16 10/29/16 10/29/16 06:59 14:59 22:59 Intake Total 300 1780 Output Total 5499 460 4725 Balance -970 1480 -1550 Lab Results last 24 hrs: Laboratory Results - last 24 hr 10/28/16 10/29/16 10/29/16 Range/Units 17:45 04:03 06:38 WBC (3.98-10.04) K/mm3 RBC (3.98-5.22) M/mm3 Hgb (11.2-15.7) gm/L Hct (34.1-44.9) % MCV (79.4-94.8) fl MCH (25.6-32.2) pg MCHC (32.2-35.5) g/dl RDW Std Deviation (36.4-46.3) fL Plt Count (182-369) K/mm3 MPV (9.4-12.3) fl Neut % (Auto) (34.0-71.1) % Lymph % (Auto) (19.3-51.7) % [place] % (Auto) (4.7-12.5) % Eos % (Auto) (0.7-5.8) Baso % (Auto) (0.1-1.2) % Neut # (Auto) (1.56-6.13) K/mm3 Lymph # (Auto) (1.18-3.74) K/mm3 [place] # (Auto) (0.24-0.36) K/mm3 Eos # (Auto) (0.04-0.36) K/mm3 Baso # (Auto) (0.01-0.08) K/mm3 Sodium 142 (136-145) mEq/L Potassium 3.4 L (3.5-5.1) mEq/L Chloride 106 (98-107) mEq/L Carbon Dioxide 25 (21-32) mEq/L Anion Gap 14.4 (5-15) BUN 10 (7-18) mg/dL Creatinine 1.0 (0.55-1.02) mg/dL Est Cr Clr Drug Dosing 35.49 mL/min Estimated GFR (MDRD) 53 (>60) mL/min BUN/Creatinine Ratio 10.0 L (14-18) Glucose 104 (83-115) mg/dL POC Glucose 102 100 (83-110) mg/dL Calcium 9.1 (8.5-10.1) mg/dL Magnesium 2.1 (1.8-2.4) mg/dl C-Reactive Protein 3.5 H* (<1.0) mg/dL 10/29/16 10/29/16 Range/Units 06:38 12:20 WBC 10.07 H (3.98-10.04) K/mm3 RBC 4.52 (3.98-5.22) M/mm3 Hgb 13.1 (11.2-15.7) gm/L Hct 40.8 (34.1-44.9) % MCV 90.3 (79.4-94.8) fl MCH 29.0 (25.6-32.2) pg MCHC 32.1 L (32.2-35.5) g/dl RDW Std Deviation 48.1 H (36.4-46.3) fL Plt Count 294 (182-369) K/mm3 MPV 10.1 (9.4-12.3) fl Neut % (Auto) 72.4 H (34.0-71.1) % Lymph % (Auto) 15.1 L (19.3-51.7) % [place] % (Auto) 12.0 (4.7-12.5) % Eos % (Auto) 0.1 L (0.7-5.8) Baso % (Auto) 0.2 (0.1-1.2) % Neut # (Auto) 7.29 H (1.56-6.13) K/mm3 Lymph # (Auto) 1.52 (1.18-3.74) K/mm3 [place] # (Auto) 1.21 H (0.24-0.36) K/mm3 Eos # (Auto) 0.01 L (0.04-0.36) K/mm3 Baso # (Auto) 0.02 (0.01-0.08) K/mm3 Sodium (136-145) mEq/L Potassium (3.5-5.1) mEq/L Chloride (98-107) mEq/L Carbon Dioxide (21-32) mEq/L Anion Gap (5-15) BUN (7-18) mg/dL Creatinine (0.55-1.02) mg/dL Est Cr Clr Drug Dosing mL/min Estimated GFR (MDRD) (>60) mL/min BUN/Creatinine Ratio (14-18) Glucose (83-115) mg/dL POC Glucose 137 H (83-110) mg/dL Calcium (8.5-10.1) mg/dL Magnesium (1.8-2.4) mg/dl C-Reactive Protein (<1.0) mg/dL [place] Results last 24 hrs: Microbiology 10/28/16 05:50 MRSA Surveillance Culture - Final Nasal/Axilla/Groin NO MRSA ISOLATED Med Orders - Current: Current Medications Dextrose/Water (Dextrose 50% In Water) 50 ml IVPUSH ASDIRECTED PRN PRN Reason: Hypoglycemia Donepezil HCl (Aricept) 5 mg PO BEDTIME [facility] Haloperidol Lactate (Haldol) 2 mg IVPUSH Q8H PRN PRN Reason: Agitation Last Admin: 10/29/16 10:05 Dose: 2 mg Potassium Cl/Dextrose/Lact Ringer's (D5 Lr With 20 Meq Kcl) 1,000 mls @ 100 mls /hr IV ASDIRECTED HERACLIO Last Admin: 10/29/16 14:11 Dose: 100 mls/hr Insulin Aspart (Novolog) 0 unit SUBCUT Q6H HERACLIO PRN Reason: Protocol Last Admin: 10/29/16 13:02 Dose: Not Given Levothyroxine Sodium (Synthroid) 50 mcg PO DAILY [facility] Last Admin: 10/29/16 12:21 Dose: 50 mcg Lorazepam (Ativan) 0.5 mg IVPUSH Q8H PRN PRN Reason: Agitation Last Admin: 10/29/16 11:01 Dose: 0.5 mg Oxybutynin Chloride (Oxybutynin Er) 5 mg PO DAILY [facility] Last Admin: 10/29/16 12:22 Dose: 5 mg Quetiapine Fumarate (Seroquel) 50 mg PO BEDTIME HERACLIO Discontinued Medications Benzocaine/Menthol (Cepacol Sore Throat) 1 lozenge MUCMEM Q1H PRN PRN Reason: Sore Throat Bupivacaine HCl/Epinephrine Bitart (Marcaine 0.5%/Epinephrine 1:200,000) Confirm Administered Dose 50 ml .ROUTE .STK-MED ONE Stop: 10/27/16 14:56 Last Admin: 10/27/16 15:47 Dose: 20 ml Ertapenem (Invanz) Confirm Administered Dose 1 gm .ROUTE .STK-MED ONE Stop: 10/27/16 15:57 Fentanyl (Sublimaze) Confirm Administered Dose 100 mcg .ROUTE .STK-MED ONE Stop: 10/27/16 15:03 Fentanyl (Sublimaze) 25 mcg IVPUSH Q1H PRN PRN Reason: Pain (severe 7-10) Stop: 10/28/16 17:11 Last Admin: 10/28/16 12:51 Dose: 25 mcg Haloperidol Lactate (Haldol) 3 mg IVPUSH ONETIME ONE Stop: 10/29/16 12:50 Last Admin: 10/29/16 13:04 Dose: 3 mg Hydromorphone HCl (Dilaudid) Confirm Administered Dose 1 mg .ROUTE .STK-MED ONE Stop: 10/27/16 15:57 Sodium Chloride (Normal Saline) 1,000 mls @ 125 mls/hr IV ASDIRECTED HERACLIO Last Admin: 10/27/16 10:47 Dose: 125 mls/hr Lidocaine HCl (Xylocaine-Mpf 1%) Confirm Administered Dose 6 mls @ as directed .ROUTE .STK-MED ONE Stop: 10/27/16 15:57 Lactated Ringer's (Ringers, Lactated) 1,000 mls @ 100 mls/hr IV ASDIRECTED HERACLIO Last Admin: 10/28/16 04:04 Dose: 100 mls/hr Potassium Chloride 40 meq/ (Lactated Ringer's) 1,020 mls @ 102 mls/hr IV ASDIRECTED HERACLIO Stop: 10/29/16 01:00 Last Admin: 10/28/16 14:35 Dose: 102 mls/hr Iopamidol (Isovue-300 (61%)) 100 ml IVPUSH ONETIME ONE Stop: 10/27/16 11:58 Last Admin: 10/27/16 12:03 Dose: 100 ml Lidocaine HCl (Xylocaine 1%) Confirm Administered Dose 50 ml .ROUTE .STK-MED ONE Stop: 10/27/16 14:56 Last Admin: 10/27/16 15:47 Dose: 20 ml Lorazepam (Ativan) 1 mg IVPUSH ONETIME ONE Stop: 10/29/16 12:50 Last Admin: 10/29/16 13:04 Dose: 1 mg Metoclopramide HCl (Reglan) 10 mg IVPUSH ONETIME ONE Stop: 10/27/16 13:39 Last Admin: 10/27/16 13:52 Dose: 10 mg Naloxone HCl (Narcan) Confirm Administered Dose 0.4 mg .ROUTE .STK-MED ONE Stop: 10/27/16 16:57 Ondansetron HCl (Zofran) 4 mg IVPUSH ONETIME ONE Stop: 10/27/16 10:32 Last Admin: 10/27/16 10:47 Dose: 4 mg Ondansetron HCl (Zofran) 4 mg IVPUSH Q6H PRN PRN Reason: Nausea/Vomiting Pantoprazole Sodium (Protonix Iv) 40 mg IVPUSH DAILY [facility] Last Admin: 10/29/16 10:05 Dose: 40 mg Propofol (Diprivan 20 Ml) Confirm Administered Dose 200 mg .ROUTE .STK-MED ONE Stop: 10/27/16 15:03 Quetiapine Fumarate (Seroquel) 50 mg PO ONETIME ONE Stop: 10/29/16 11:45 Last Admin: 10/29/16 12:21 Dose: 50 mg Sodium Chloride (Saline Flush) 10 ml FLUSH ASDIRECTED PRN PRN Reason: Keep Vein Open Last Admin: 10/27/16 10:50 Dose: 10 ml Sodium Chloride (Saline Flush) 10 ml FLUSH ONETIME PRN PRN Reason: IV FLUSH Last Admin: 10/27/16 12:03 Dose: 10 ml Succinylcholine Chloride (Succinylcholine In Ns Pf) Confirm Administered Dose 100 mg .ROUTE .STK-MED ONE Stop: 10/27/16 15:57 - Exam General: alert, oriented, cooperative, no acute distress Lungs: Normal respiratory effort Cardiovascular: Regular Rate, Regular Rhythm Abdomen: soft, no distension, tenderness (around lap sites/PEG tube ), other ( minimal bilious drainage in PEG tube ) Extremities: no edema Skin: warm, dry, intact Wound/Incisions: healing well, no drainage. No: erythema Neurological: no new focal deficit Consult PN Assessment/Plan Procedures: Procedures ASSAY OF CK (CPK) (09/11/15) ASSAY OF LACTIC ACID (02/12/16) ASSAY OF LIPASE (06/18/16) ASSAY OF MAGNESIUM (09/11/15) ASSAY OF NATRIURETIC PEPTIDE (02/12/16) ASSAY OF PHOSPHORUS (09/11/15) ASSAY OF SERUM POTASSIUM (09/11/15) ASSAY OF TROPONIN QUANT (06/18/16) ASSAY THYROID STIM HORMONE (02/12/16) BLOOD CULTURE FOR BACTERIA (02/12/16) BLOOD GASES ANY COMBINATION (02/12/16) BLOOD TYPING SEROLOGIC ABO (09/11/15) BLOOD TYPING SEROLOGIC RH(D) (09/11/15) C-REACTIVE PROTEIN (09/11/15) CHEST X-RAY 1 VIEW FRONTAL (06/18/16) COMPLETE CBC AUTOMATED (09/11/15) COMPLETE CBC W/AUTO DIFF WBC (06/18/16) COMPREHEN METABOLIC PANEL (06/18/16) CT ABD & PELV W/CONTRAST (01/11/16) CT ANGIOGRAPHY CHEST (02/20/15) CT HEAD/BRAIN W/O DYE (02/12/16) ELECTROCARDIOGRAM TRACING (06/18/16) EMERGENCY DEPT VISIT (06/18/16) EMERGENCY DEPT VISIT (02/11/14) FIBRIN DEGRADATION QUANT (02/12/16) GAIT TRAINING THERAPY (09/11/15) GLYCOSYLATED HEMOGLOBIN TEST (09/11/15) HELICOBACTER PYLORI ANTIBODY (06/18/16) HYDRATE IV INFUSION ADD-ON (01/11/16) HYDRATION IV INFUSION INIT (01/11/16) METABOLIC PANEL TOTAL CA (09/11/15) OCCULT BLD FECES 1-3 TESTS (09/11/15) OT EVALUATION (09/11/15) PROTHROMBIN TIME (02/12/16) PT EVALUATION (09/11/15) ROUTINE VENIPUNCTURE (06/18/16) TEST FOR ACETONE/KETONES (09/11/15) THER/PROPH/DIAG INJ IV PUSH (06/18/16) THER/PROPH/DIAG INJ SC/IM (02/20/15) THERAPEUTIC ACTIVITIES (09/11/15) THERAPEUTIC EXERCISES (09/11/15) THROMBOPLASTIN TIME PARTIAL (02/12/16) TX/PRO/DX INJ NEW DRUG ADDON (06/18/16) URINALYSIS AUTO W/SCOPE (02/12/16) WITHDRAWAL OF ARTERIAL BLOOD (02/12/16) X-RAY EXAM OF FEMUR 2/> (09/11/15) X-RAY EXAM OF PELVIS (02/12/16) (1) Hiatal hernia with obstruction but no gangrene SNOMED Code(s): 12570033 Code(s): K44.0 - DIAPHRAGMATIC HERNIA WITH OBSTRUCTION, WITHOUT GANGRENE Current Visit: Yes Problem List Initiated/Reviewed/Updated: Yes My Orders last 24 hours: My Active Orders 10/29/16 08:34 PEG Tube Management [Percutaneous Endoscopic Gastostomy Tube] [OM.PC] Routine 10/29/16 08:35 PEG Tube Management [Percutaneous Endoscopic Gastostomy Tube] [OM.PC] BID 10/29/16 08:39 Medication Administration Instruction [OM.PC] Routine 10/29/16 13:48 Communication Order [RC] BID 10/29/16 Breakfast Clear Liquid Diet [DIET] Plan: 81 yo woman s/p laparoscopic decompression of acutely incarcerated hiatal hernia with PEG tube gastropexy on October 27 PEG tube to drainage. No obvious complications from surgery. Will continue to follow along while patient is admitted.
--- NOTE | 2016-10-29 17:28 | PCM.CONSN ---
- General Info Date of Service: 10/29/16 Subjective Update: When I presented to examine the patient this morning, the nurse on dutyexpress concerns that there was feculent matter coming from the patient's PEG tube. Patient has been afebrile overnight. Was quite agitated overnight consistent with ing. Resting comfortably now. - Patient Data Vitals - most recent: Last Vital Signs Temp 97.8 F 10/29/16 15:16 Pulse 57 L 10/29/16 15:16 Resp 16 10/29/16 15:16 BP 155/75 H 10/29/16 15:16 Pulse Ox 95 10/29/16 15:16 Weight - most recent: 156 lb 8 oz I&O - last 24 hours: Intake & Output 10/29/16 10/29/16 10/29/16 06:59 14:59 22:59 Intake Total 300 1780 Output Total 5878 191 5015 Balance -970 1480 -1550 Lab Results last 24 hrs: Laboratory Results - last 24 hr 10/28/16 10/29/16 10/29/16 Range/Units 17:45 04:03 06:38 WBC (3.98-10.04) K/mm3 RBC (3.98-5.22) M/mm3 Hgb (11.2-15.7) gm/L Hct (34.1-44.9) % MCV (79.4-94.8) fl MCH (25.6-32.2) pg MCHC (32.2-35.5) g/dl RDW Std Deviation (36.4-46.3) fL Plt Count (182-369) K/mm3 MPV (9.4-12.3) fl Neut % (Auto) (34.0-71.1) % Lymph % (Auto) (19.3-51.7) % [place] % (Auto) (4.7-12.5) % Eos % (Auto) (0.7-5.8) Baso % (Auto) (0.1-1.2) % Neut # (Auto) (1.56-6.13) K/mm3 Lymph # (Auto) (1.18-3.74) K/mm3 [place] # (Auto) (0.24-0.36) K/mm3 Eos # (Auto) (0.04-0.36) K/mm3 Baso # (Auto) (0.01-0.08) K/mm3 Sodium 142 (136-145) mEq/L Potassium 3.4 L (3.5-5.1) mEq/L Chloride 106 (98-107) mEq/L Carbon Dioxide 25 (21-32) mEq/L Anion Gap 14.4 (5-15) BUN 10 (7-18) mg/dL Creatinine 1.0 (0.55-1.02) mg/dL Est Cr Clr Drug Dosing 35.49 mL/min Estimated GFR (MDRD) 53 (>60) mL/min BUN/Creatinine Ratio 10.0 L (14-18) Glucose 104 (83-115) mg/dL POC Glucose 102 100 (83-110) mg/dL Calcium 9.1 (8.5-10.1) mg/dL Magnesium 2.1 (1.8-2.4) mg/dl C-Reactive Protein 3.5 H* (<1.0) mg/dL 10/29/16 10/29/16 Range/Units 06:38 12:20 WBC 10.07 H (3.98-10.04) K/mm3 RBC 4.52 (3.98-5.22) M/mm3 Hgb 13.1 (11.2-15.7) gm/L Hct 40.8 (34.1-44.9) % MCV 90.3 (79.4-94.8) fl MCH 29.0 (25.6-32.2) pg MCHC 32.1 L (32.2-35.5) g/dl RDW Std Deviation 48.1 H (36.4-46.3) fL Plt Count 294 (182-369) K/mm3 MPV 10.1 (9.4-12.3) fl Neut % (Auto) 72.4 H (34.0-71.1) % Lymph % (Auto) 15.1 L (19.3-51.7) % [place] % (Auto) 12.0 (4.7-12.5) % Eos % (Auto) 0.1 L (0.7-5.8) Baso % (Auto) 0.2 (0.1-1.2) % Neut # (Auto) 7.29 H (1.56-6.13) K/mm3 Lymph # (Auto) 1.52 (1.18-3.74) K/mm3 [place] # (Auto) 1.21 H (0.24-0.36) K/mm3 Eos # (Auto) 0.01 L (0.04-0.36) K/mm3 Baso # (Auto) 0.02 (0.01-0.08) K/mm3 Sodium (136-145) mEq/L Potassium (3.5-5.1) mEq/L Chloride (98-107) mEq/L Carbon Dioxide (21-32) mEq/L Anion Gap (5-15) BUN (7-18) mg/dL Creatinine (0.55-1.02) mg/dL Est Cr Clr Drug Dosing mL/min Estimated GFR (MDRD) (>60) mL/min BUN/Creatinine Ratio (14-18) Glucose (83-115) mg/dL POC Glucose 137 H (83-110) mg/dL Calcium (8.5-10.1) mg/dL Magnesium (1.8-2.4) mg/dl C-Reactive Protein (<1.0) mg/dL [place] Results last 24 hrs: Microbiology 10/28/16 05:50 MRSA Surveillance Culture - Final Nasal/Axilla/Groin NO MRSA ISOLATED Med Orders - Current: Current Medications Dextrose/Water (Dextrose 50% In Water) 50 ml IVPUSH ASDIRECTED PRN PRN Reason: Hypoglycemia Donepezil HCl (Aricept) 5 mg PO BEDTIME [facility] Haloperidol Lactate (Haldol) 2 mg IVPUSH Q8H PRN PRN Reason: Agitation Last Admin: 10/29/16 10:05 Dose: 2 mg Potassium Cl/Dextrose/Lact Ringer's (D5 Lr With 20 Meq Kcl) 1,000 mls @ 100 mls /hr IV ASDIRECTED [facility] Last Admin: 10/29/16 14:11 Dose: 100 mls/hr Insulin Aspart (Novolog) 0 unit SUBCUT Q6H [facility] PRN Reason: Protocol Last Admin: 10/29/16 13:02 Dose: Not Given Levothyroxine Sodium (Synthroid) 50 mcg PO DAILY [facility] Last Admin: 10/29/16 12:21 Dose: 50 mcg Lorazepam (Ativan) 0.5 mg IVPUSH Q8H PRN PRN Reason: Agitation Last Admin: 10/29/16 11:01 Dose: 0.5 mg Oxybutynin Chloride (Oxybutynin Er) 5 mg PO DAILY [facility] Last Admin: 10/29/16 12:22 Dose: 5 mg Quetiapine Fumarate (Seroquel) 50 mg PO BEDTIME [facility] Discontinued Medications Benzocaine/Menthol (Cepacol Sore Throat) 1 lozenge MUCMEM Q1H PRN PRN Reason: Sore Throat Bupivacaine HCl/Epinephrine Bitart (Marcaine 0.5%/Epinephrine 1:200,000) Confirm Administered Dose 50 ml .ROUTE .STK-MED ONE Stop: 10/27/16 14:56 Last Admin: 10/27/16 15:47 Dose: 20 ml Ertapenem (Invanz) Confirm Administered Dose 1 gm .ROUTE .STK-MED ONE Stop: 10/27/16 15:57 Fentanyl (Sublimaze) Confirm Administered Dose 100 mcg .ROUTE .STK-MED ONE Stop: 10/27/16 15:03 Fentanyl (Sublimaze) 25 mcg IVPUSH Q1H PRN PRN Reason: Pain (severe 7-10) Stop: 10/28/16 17:11 Last Admin: 10/28/16 12:51 Dose: 25 mcg Haloperidol Lactate (Haldol) 3 mg IVPUSH ONETIME ONE Stop: 10/29/16 12:50 Last Admin: 10/29/16 13:04 Dose: 3 mg Hydromorphone HCl (Dilaudid) Confirm Administered Dose 1 mg .ROUTE .STK-MED ONE Stop: 10/27/16 15:57 Sodium Chloride (Normal Saline) 1,000 mls @ 125 mls/hr IV ASDIRECTED [facility] Last Admin: 10/27/16 10:47 Dose: 125 mls/hr Lidocaine HCl (Xylocaine-Mpf 1%) Confirm Administered Dose 6 mls @ as directed .ROUTE .STK-MED ONE Stop: 10/27/16 15:57 Lactated Ringer's (Ringers, Lactated) 1,000 mls @ 100 mls/hr IV ASDIRECTED [facility] Last Admin: 10/28/16 04:04 Dose: 100 mls/hr Potassium Chloride 40 meq/ (Lactated Ringer's) 1,020 mls @ 102 mls/hr IV ASDIRECTED [facility] Stop: 10/29/16 01:00 Last Admin: 10/28/16 14:35 Dose: 102 mls/hr Iopamidol (Isovue-300 (61%)) 100 ml IVPUSH ONETIME ONE Stop: 10/27/16 11:58 Last Admin: 10/27/16 12:03 Dose: 100 ml Lidocaine HCl (Xylocaine 1%) Confirm Administered Dose 50 ml .ROUTE .STK-MED ONE Stop: 10/27/16 14:56 Last Admin: 10/27/16 15:47 Dose: 20 ml Lorazepam (Ativan) 1 mg IVPUSH ONETIME ONE Stop: 10/29/16 12:50 Last Admin: 10/29/16 13:04 Dose: 1 mg Metoclopramide HCl (Reglan) 10 mg IVPUSH ONETIME ONE Stop: 10/27/16 13:39 Last Admin: 10/27/16 13:52 Dose: 10 mg Naloxone HCl (Narcan) Confirm Administered Dose 0.4 mg .ROUTE .STK-MED ONE Stop: 10/27/16 16:57 Ondansetron HCl (Zofran) 4 mg IVPUSH ONETIME ONE Stop: 10/27/16 10:32 Last Admin: 10/27/16 10:47 Dose: 4 mg Ondansetron HCl (Zofran) 4 mg IVPUSH Q6H PRN PRN Reason: Nausea/Vomiting Pantoprazole Sodium (Protonix Iv) 40 mg IVPUSH DAILY [facility] Last Admin: 10/29/16 10:05 Dose: 40 mg Propofol (Diprivan 20 Ml) Confirm Administered Dose 200 mg .ROUTE .STK-MED ONE Stop: 10/27/16 15:03 Quetiapine Fumarate (Seroquel) 50 mg PO ONETIME ONE Stop: 10/29/16 11:45 Last Admin: 10/29/16 12:21 Dose: 50 mg Sodium Chloride (Saline Flush) 10 ml FLUSH ASDIRECTED PRN PRN Reason: Keep Vein Open Last Admin: 10/27/16 10:50 Dose: 10 ml Sodium Chloride (Saline Flush) 10 ml FLUSH ONETIME PRN PRN Reason: IV FLUSH Last Admin: 10/27/16 12:03 Dose: 10 ml Succinylcholine Chloride (Succinylcholine In Ns Pf) Confirm Administered Dose 100 mg .ROUTE .STK-MED ONE Stop: 10/27/16 15:57 - Exam General: other (patient is asleep) Lungs: Normal respiratory effort. No: Rhonchi, Stridor Cardiovascular: Regular Rate, Regular Rhythm Abdomen: soft, no distension, tenderness (mild around the incision sites and PEG tube), other (PEG tube draining to gravity. Bilious contents and small foodstuffs present.). No: rebound, guarding Extremities: no cyanosis Skin: warm, dry, intact Wound/Incisions: healing well, no drainage. No: erythema Consult PN Assessment/Plan Procedures: Procedures ASSAY OF CK (CPK) (09/11/15) ASSAY OF LACTIC ACID (02/12/16) ASSAY OF LIPASE (06/18/16) ASSAY OF MAGNESIUM (09/11/15) ASSAY OF NATRIURETIC PEPTIDE (02/12/16) ASSAY OF PHOSPHORUS (09/11/15) ASSAY OF SERUM POTASSIUM (09/11/15) ASSAY OF TROPONIN QUANT (06/18/16) ASSAY THYROID STIM HORMONE (02/12/16) BLOOD CULTURE FOR BACTERIA (02/12/16) BLOOD GASES ANY COMBINATION (02/12/16) BLOOD TYPING SEROLOGIC ABO (09/11/15) BLOOD TYPING SEROLOGIC RH(D) (09/11/15) C-REACTIVE PROTEIN (09/11/15) CHEST X-RAY 1 VIEW FRONTAL (06/18/16) COMPLETE CBC AUTOMATED (09/11/15) COMPLETE CBC W/AUTO DIFF WBC (06/18/16) COMPREHEN METABOLIC PANEL (06/18/16) CT ABD & PELV W/CONTRAST (01/11/16) CT ANGIOGRAPHY CHEST (02/20/15) CT HEAD/BRAIN W/O DYE (02/12/16) ELECTROCARDIOGRAM TRACING (06/18/16) EMERGENCY DEPT VISIT (06/18/16) EMERGENCY DEPT VISIT (02/11/14) FIBRIN DEGRADATION QUANT (02/12/16) GAIT TRAINING THERAPY (09/11/15) GLYCOSYLATED HEMOGLOBIN TEST (09/11/15) HELICOBACTER PYLORI ANTIBODY (06/18/16) HYDRATE IV INFUSION ADD-ON (01/11/16) HYDRATION IV INFUSION INIT (01/11/16) METABOLIC PANEL TOTAL CA (09/11/15) OCCULT BLD FECES 1-3 TESTS (09/11/15) OT EVALUATION (09/11/15) PROTHROMBIN TIME (02/12/16) PT EVALUATION (09/11/15) ROUTINE VENIPUNCTURE (06/18/16) TEST FOR ACETONE/KETONES (09/11/15) THER/PROPH/DIAG INJ IV PUSH (06/18/16) THER/PROPH/DIAG INJ SC/IM (02/20/15) THERAPEUTIC ACTIVITIES (09/11/15) THERAPEUTIC EXERCISES (09/11/15) THROMBOPLASTIN TIME PARTIAL (02/12/16) TX/PRO/DX INJ NEW DRUG ADDON (06/18/16) URINALYSIS AUTO W/SCOPE (02/12/16) WITHDRAWAL OF ARTERIAL BLOOD (02/12/16) X-RAY EXAM OF FEMUR 2/> (09/11/15) X-RAY EXAM OF PELVIS (02/12/16) (1) Hiatal hernia with obstruction but no gangrene SNOMED Code(s): 62371954 Code(s): K44.0 - DIAPHRAGMATIC HERNIA WITH OBSTRUCTION, WITHOUT GANGRENE Current Visit: Yes (2) Gastritis SNOMED Code(s): 3878784 Code(s): K29.70 - GASTRITIS, UNSPECIFIED, WITHOUT BLEEDING Current Visit: Yes Problem List Initiated/Reviewed/Updated: Yes My Orders last 24 hours: My Active Orders 10/29/16 08:34 PEG Tube Management [Percutaneous Endoscopic Gastostomy Tube] [OM.PC] Routine 10/29/16 08:35 PEG Tube Management [Percutaneous Endoscopic Gastostomy Tube] [OM.PC] BID 10/29/16 08:39 Medication Administration Instruction [OM.PC] Routine 10/29/16 13:48 Communication Order [RC] BID 10/29/16 Breakfast Clear Liquid Diet [DIET] Plan: 81 yo woman s/p laparoscopic decompression of acutely incarcerated hiatal hernia with PEG tube gastropexy on October 27 PEG tube may be clamped. May be used for feeds/meds/etc PRN. Discussed w/ nursing that bile drainage from PEG tube is normal if not clamped. No obvious complications from surgery. Will continue to follow along while patient is admitted.
[2016-10-29] MEDS: QUEtiapine 25 MG Tab PO SCH (20:19)
[2016-10-29] MEDS: Donepezil 10 MG Tab PO SCH (21:12)
[2016-10-30] MEDS: Dextrose 5%-Lact Ringers w/KCl 1,000 ML IV SCH ×3 (00:16→21:07)
[2016-10-30] MEDS: Insulin Aspart 100 Units/ML 3 ML Pen SUBCUT SCH ×3 (06:20→19:14)
[2016-10-30] MEDS ORDERED: HYDROmorphone 1 MG/ML Syringe IVPUSH ONE (08:04)
[2016-10-30] MEDS ORDERED: Magnesium Sulfate/Water 2 GM in Premix Bag 1 BAG IV ONE (10:04)
--- NOTE | 2016-10-30 10:05 | PCM.PN ---
- General Info Date of Service: 10/30/16 Functional Status: Reports: pain controlled (received dilaudid this am.) - Review of Systems General: Reports: No Symptoms HEENT: Reports: no symptoms Pulmonary: Reports: no symptoms Cardiovascular: Reports: No Symptoms Gastrointestinal: Reports: No symptoms Genitourinary: Reports: no symptoms Musculoskeletal: Reports: no symptoms Skin: Reports: no symptoms Neurological: Reports: No Symptoms Psychiatric: Reports: no symptoms - Patient Data Vitals - most recent: Last Vital Signs Temp 38.1 C 10/30/16 08:41 Pulse 71 10/30/16 08:41 Resp 14 10/30/16 08:41 BP 130/90 10/30/16 08:41 Pulse Ox 96 10/30/16 08:41 Weight - most recent: 72.529 kg I&O - last 24 hours: Intake & Output 10/29/16 10/30/16 10/30/16 22:59 06:59 14:59 Intake Total 30 100 Output Total 1550 500 Balance -1520 -400 Lab Results last 24 hrs: Laboratory Results - last 24 hr 10/29/16 10/29/16 10/29/16 Range/Units 12:20 18:08 23:34 WBC (3.98-10.04) K/mm3 RBC (3.98-5.22) M/mm3 Hgb (11.2-15.7) gm/L Hct (34.1-44.9) % MCV (79.4-94.8) fl MCH (25.6-32.2) pg MCHC (32.2-35.5) g/dl RDW Std Deviation (36.4-46.3) fL Plt Count (182-369) K/mm3 MPV (9.4-12.3) fl Neut % (Auto) (34.0-71.1) % Lymph % (Auto) (19.3-51.7) % [place] % (Auto) (4.7-12.5) % Eos % (Auto) (0.7-5.8) Baso % (Auto) (0.1-1.2) % Neut # (Auto) (1.56-6.13) K/mm3 Lymph # (Auto) (1.18-3.74) K/mm3 [place] # (Auto) (0.24-0.36) K/mm3 Eos # (Auto) (0.04-0.36) K/mm3 Baso # (Auto) (0.01-0.08) K/mm3 Sodium (136-145) mEq/L Potassium (3.5-5.1) mEq/L Chloride (98-107) mEq/L Carbon Dioxide (21-32) mEq/L Anion Gap (5-15) BUN (7-18) mg/dL Creatinine (0.55-1.02) mg/dL Est Cr Clr Drug Dosing mL/min Estimated GFR (MDRD) (>60) mL/min BUN/Creatinine Ratio (14-18) Glucose (83-115) mg/dL POC Glucose 137 H 117 H 148 H (83-110) mg/dL Calcium (8.5-10.1) mg/dL Magnesium (1.8-2.4) mg/dl C-Reactive Protein (<1.0) mg/dL 10/30/16 10/30/16 10/30/16 Range/Units 06:15 06:39 06:39 WBC 8.46 (3.98-10.04) K/mm3 RBC 4.83 (3.98-5.22) M/mm3 Hgb 14.0 (11.2-15.7) gm/L Hct 42.4 (34.1-44.9) % MCV 87.8 (79.4-94.8) fl MCH 29.0 (25.6-32.2) pg MCHC 33.0 (32.2-35.5) g/dl RDW Std Deviation 45.1 (36.4-46.3) fL Plt Count 294 (182-369) K/mm3 MPV 9.5 (9.4-12.3) fl Neut % (Auto) 71.5 H (34.0-71.1) % Lymph % (Auto) 15.4 L (19.3-51.7) % [place] % (Auto) 11.3 (4.7-12.5) % Eos % (Auto) 1.5 (0.7-5.8) Baso % (Auto) 0.2 (0.1-1.2) % Neut # (Auto) 6.04 (1.56-6.13) K/mm3 Lymph # (Auto) 1.30 (1.18-3.74) K/mm3 [place] # (Auto) 0.96 H (0.24-0.36) K/mm3 Eos # (Auto) 0.13 (0.04-0.36) K/mm3 Baso # (Auto) 0.02 (0.01-0.08) K/mm3 Sodium 137 (136-145) mEq/L Potassium 3.3 L (3.5-5.1) mEq/L Chloride 103 (98-107) mEq/L Carbon Dioxide 25 (21-32) mEq/L Anion Gap 12.3 (5-15) BUN 8 (7-18) mg/dL Creatinine 0.9 (0.55-1.02) mg/dL Est Cr Clr Drug Dosing 39.43 mL/min Estimated GFR (MDRD) > 60 (>60) mL/min BUN/Creatinine Ratio 8.9 L (14-18) Glucose 123 H (83-115) mg/dL POC Glucose 117 H (83-110) mg/dL Calcium 8.9 (8.5-10.1) mg/dL Magnesium 1.9 (1.8-2.4) mg/dl C-Reactive Protein 2.7 H* (<1.0) mg/dL [place] Results last 24 hrs: Microbiology 10/28/16 05:50 MRSA Surveillance Culture - Final Nasal/Axilla/Groin NO MRSA ISOLATED Med Orders - Current: Current Medications Dextrose/Water (Dextrose 50% In Water) 50 ml IVPUSH ASDIRECTED PRN PRN Reason: Hypoglycemia Donepezil HCl (Aricept) 5 mg PO BEDTIME [facility] Last Admin: 10/29/16 21:12 Dose: 5 mg Haloperidol Lactate (Haldol) 2 mg IVPUSH Q8H PRN PRN Reason: Agitation Last Admin: 10/29/16 10:05 Dose: 2 mg Potassium Cl/Dextrose/Lact Ringer's (D5 Lr With 20 Meq Kcl) 1,000 mls @ 100 mls /hr IV ASDIRECTED [facility] Last Admin: 10/30/16 00:16 Dose: 100 mls/hr Magnesium Sulfate 2 gm/ Premix 50 mls @ 25 mls/hr IV ONETIME ONE Stop: 10/30/16 12:03 Insulin Aspart (Novolog) 0 unit SUBCUT Q6H [facility] PRN Reason: Protocol Last Admin: 10/30/16 06:20 Dose: Not Given Levothyroxine Sodium (Synthroid) 50 mcg PO DAILY [facility] Last Admin: 10/29/16 12:21 Dose: 50 mcg Lorazepam (Ativan) 0.5 mg IVPUSH Q8H PRN PRN Reason: Agitation Last Admin: 10/29/16 23:47 Dose: 0.5 mg Oxybutynin Chloride (Oxybutynin Er) 5 mg PO DAILY [facility] Last Admin: 10/29/16 12:22 Dose: 5 mg Potassium Chloride (Klor-Con M20) 40 meq PO BID [facility] Quetiapine Fumarate (Seroquel) 50 mg PO BEDTIME [facility] Last Admin: 10/29/16 20:19 Dose: Not Given Discontinued Medications Benzocaine/Menthol (Cepacol Sore Throat) 1 lozenge MUCMEM Q1H PRN PRN Reason: Sore Throat Bupivacaine HCl/Epinephrine Bitart (Marcaine 0.5%/Epinephrine 1:200,000) Confirm Administered Dose 50 ml .ROUTE .STK-MED ONE Stop: 10/27/16 14:56 Last Admin: 10/27/16 15:47 Dose: 20 ml Ertapenem (Invanz) Confirm Administered Dose 1 gm .ROUTE .STK-MED ONE Stop: 10/27/16 15:57 Fentanyl (Sublimaze) Confirm Administered Dose 100 mcg .ROUTE .STK-MED ONE Stop: 10/27/16 15:03 Fentanyl (Sublimaze) 25 mcg IVPUSH Q1H PRN PRN Reason: Pain (severe 7-10) Stop: 10/28/16 17:11 Last Admin: 10/28/16 12:51 Dose: 25 mcg Haloperidol Lactate (Haldol) 3 mg IVPUSH ONETIME ONE Stop: 10/29/16 12:50 Last Admin: 10/29/16 13:04 Dose: 3 mg Hydromorphone HCl (Dilaudid) Confirm Administered Dose 1 mg .ROUTE .STK-MED ONE Stop: 10/27/16 15:57 Hydromorphone HCl (Dilaudid) 1 mg IVPUSH ONETIME ONE Stop: 10/30/16 08:05 Last Admin: 10/30/16 08:18 Dose: 1 mg Sodium Chloride (Normal Saline) 1,000 mls @ 125 mls/hr IV ASDIRECTED [facility] Last Admin: 10/27/16 10:47 Dose: 125 mls/hr Lidocaine HCl (Xylocaine-Mpf 1%) Confirm Administered Dose 6 mls @ as directed .ROUTE .STK-MED ONE Stop: 10/27/16 15:57 Lactated Ringer's (Ringers, Lactated) 1,000 mls @ 100 mls/hr IV ASDIRECTED [facility] Last Admin: 10/28/16 04:04 Dose: 100 mls/hr Potassium Chloride 40 meq/ (Lactated Ringer's) 1,020 mls @ 102 mls/hr IV ASDIRECTED [facility] Stop: 10/29/16 01:00 Last Admin: 10/28/16 14:35 Dose: 102 mls/hr Iopamidol (Isovue-300 (61%)) 100 ml IVPUSH ONETIME ONE Stop: 10/27/16 11:58 Last Admin: 10/27/16 12:03 Dose: 100 ml Lidocaine HCl (Xylocaine 1%) Confirm Administered Dose 50 ml .ROUTE .STK-MED ONE Stop: 10/27/16 14:56 Last Admin: 10/27/16 15:47 Dose: 20 ml Lorazepam (Ativan) 1 mg IVPUSH ONETIME ONE Stop: 10/29/16 12:50 Last Admin: 10/29/16 13:04 Dose: 1 mg Metoclopramide HCl (Reglan) 10 mg IVPUSH ONETIME ONE Stop: 10/27/16 13:39 Last Admin: 10/27/16 13:52 Dose: 10 mg Naloxone HCl (Narcan) Confirm Administered Dose 0.4 mg .ROUTE .STK-MED ONE Stop: 10/27/16 16:57 Ondansetron HCl (Zofran) 4 mg IVPUSH ONETIME ONE Stop: 10/27/16 10:32 Last Admin: 10/27/16 10:47 Dose: 4 mg Ondansetron HCl (Zofran) 4 mg IVPUSH Q6H PRN PRN Reason: Nausea/Vomiting Pantoprazole Sodium (Protonix Iv) 40 mg IVPUSH DAILY [facility] Last Admin: 10/29/16 10:05 Dose: 40 mg Propofol (Diprivan 20 Ml) Confirm Administered Dose 200 mg .ROUTE .STK-MED ONE Stop: 10/27/16 15:03 Quetiapine Fumarate (Seroquel) 50 mg PO ONETIME ONE Stop: 10/29/16 11:45 Last Admin: 10/29/16 12:21 Dose: 50 mg Sodium Chloride (Saline Flush) 10 ml FLUSH ASDIRECTED PRN PRN Reason: Keep Vein Open Last Admin: 10/27/16 10:50 Dose: 10 ml Sodium Chloride (Saline Flush) 10 ml FLUSH ONETIME PRN PRN Reason: IV FLUSH Last Admin: 10/27/16 12:03 Dose: 10 ml Succinylcholine Chloride (Succinylcholine In Ns Pf) Confirm Administered Dose 100 mg .ROUTE .STK-MED ONE Stop: 10/27/16 15:57 - Exam Quality Assessment: DVT prophylaxis General: alert, cooperative, no acute distress HEENT: Pupils equal, Pupils reactive, EOMI Neck: supple, trachea midline Lungs: Normal respiratory effort Cardiovascular: Regular Rate, Regular Rhythm Abdomen: bowel sounds present, soft, no distension, tenderness (decreased) (Female) Exam: Deferred Back Exam: normal inspection Extremities: normal pulses Skin: warm Neurological: no new focal deficit, normal speech Psy/Mental Status: alert - Problem List Review Problem List Initiated/Reviewed/Updated: Yes - My Orders Last 24 Hours: My Active Orders 10/29/16 10:30 Levothyroxine [Synthroid] 50 mcg PO DAILY Oxybutynin [Oxybutynin ER] 5 mg PO DAILY 10/29/16 10:34 Patient Status [ADT] Routine 10/29/16 21:00 Donepezil [Aricept] 5 mg PO BEDTIME QUEtiapine [SEROquel] 50 mg PO BEDTIME 10/30/16 03:00 Restraint Eval Need to Continue - 24 Hrs [OM.PC] Daily Restraint Monitoring Non-VIOL/Non-SD [OM.PC] Daily 10/30/16 10:04 Magnesium Sulfate/Water [Magnesium Sulfate 2 GM in Water 50 ML] 2 gm Premix Bag 1 bag IV ONETIME 10/30/16 10:15 Potassium Chloride [Klor-Con M20] 40 meq PO BID 10/31/16 05:00 BASIC METABOLIC PANEL,BMP [CHEM] DAILY CBC WITH AUTO DIFF [HEME] DAILY - Plan Plan:: Impression/Plan: POD 3 Pre/Post op DX [facility] with gastric outlet obstruction Post op: dx lap; reduction of incarcerated hiatal hernia; dx EGD with lap assisted PEG tube Chronic HTN Hypothyroidism Hx of positive H Pylori Alzheimer Dementia Diverticulitis Plan: Confusion, restlessness, continue 1:1 sitter in evening Will need SNF placement with PEG tube, used for gastropexy only; flush H2O 30 cc BID Labs Qd, replace electrolytes as needed. Address pain mgt; keep home meds as ordered. Advance diet as appropriate DVT/GI prophylaxis
[2016-10-30] MEDS: Levothyroxine 50 MCG Tab PO SCH (10:34)
[2016-10-30] MEDS: Potassium Chloride 20 MEQ Tab.ER PO SCH ×2 (10:35→21:13)
[2016-10-30] MEDS: Oxybutynin 5 MG Tab.ER PO SCH (10:41)
[2016-10-30] MEDS ORDERED: Haloperidol Lactate 5 MG/ML SDV IVPUSH PRN (10:59)
[2016-10-30] MEDS: Morphine 10 MG/0.5 ML Oral Syringe PO PRN ×2 (12:20→23:57)
--- NOTE | 2016-10-30 14:44 | PCM.CONSN ---
- General Info Date of Service: 10/30/16 - Review of Systems Systems Review Comment:: Patient medicated for pain this morning with 1 mg of Dilaudid. Nursing reports she is much less combative. Patient has been sleeping most of the day after this. Patient has been little since surgery, a few bites of Jell-O. - Patient Data Vitals - most recent: Last Vital Signs Temp 98.1 F 10/30/16 12:11 Pulse 73 10/30/16 12:11 Resp 12 10/30/16 12:11 BP 137/119 H 10/30/16 12:11 Pulse Ox 97 10/30/16 12:11 Weight - most recent: 162 lb I&O - last 24 hours: Intake & Output 10/29/16 10/30/16 10/30/16 22:59 06:59 14:59 Intake Total 30 100 0 Output Total 1550 500 Balance -1520 -400 0 Lab Results last 24 hrs: Laboratory Results - last 24 hr 10/29/16 10/29/16 10/30/16 Range/Units 18:08 23:34 06:15 WBC (3.98-10.04) K/mm3 RBC (3.98-5.22) M/mm3 Hgb (11.2-15.7) gm/L Hct (34.1-44.9) % MCV (79.4-94.8) fl MCH (25.6-32.2) pg MCHC (32.2-35.5) g/dl RDW Std Deviation (36.4-46.3) fL Plt Count (182-369) K/mm3 MPV (9.4-12.3) fl Neut % (Auto) (34.0-71.1) % Lymph % (Auto) (19.3-51.7) % [place] % (Auto) (4.7-12.5) % Eos % (Auto) (0.7-5.8) Baso % (Auto) (0.1-1.2) % Neut # (Auto) (1.56-6.13) K/mm3 Lymph # (Auto) (1.18-3.74) K/mm3 [place] # (Auto) (0.24-0.36) K/mm3 Eos # (Auto) (0.04-0.36) K/mm3 Baso # (Auto) (0.01-0.08) K/mm3 Sodium (136-145) mEq/L Potassium (3.5-5.1) mEq/L Chloride (98-107) mEq/L Carbon Dioxide (21-32) mEq/L Anion Gap (5-15) BUN (7-18) mg/dL Creatinine (0.55-1.02) mg/dL Est Cr Clr Drug Dosing mL/min Estimated GFR (MDRD) (>60) mL/min BUN/Creatinine Ratio (14-18) Glucose (83-115) mg/dL POC Glucose 117 H 148 H 117 H (83-110) mg/dL Calcium (8.5-10.1) mg/dL Magnesium (1.8-2.4) mg/dl C-Reactive Protein (<1.0) mg/dL 10/30/16 10/30/16 10/30/16 Range/Units 06:39 06:39 13:13 WBC 8.46 (3.98-10.04) K/mm3 RBC 4.83 (3.98-5.22) M/mm3 Hgb 14.0 (11.2-15.7) gm/L Hct 42.4 (34.1-44.9) % MCV 87.8 (79.4-94.8) fl MCH 29.0 (25.6-32.2) pg MCHC 33.0 (32.2-35.5) g/dl RDW Std Deviation 45.1 (36.4-46.3) fL Plt Count 294 (182-369) K/mm3 MPV 9.5 (9.4-12.3) fl Neut % (Auto) 71.5 H (34.0-71.1) % Lymph % (Auto) 15.4 L (19.3-51.7) % [place] % (Auto) 11.3 (4.7-12.5) % Eos % (Auto) 1.5 (0.7-5.8) Baso % (Auto) 0.2 (0.1-1.2) % Neut # (Auto) 6.04 (1.56-6.13) K/mm3 Lymph # (Auto) 1.30 (1.18-3.74) K/mm3 [place] # (Auto) 0.96 H (0.24-0.36) K/mm3 Eos # (Auto) 0.13 (0.04-0.36) K/mm3 Baso # (Auto) 0.02 (0.01-0.08) K/mm3 Sodium 137 (136-145) mEq/L Potassium 3.3 L (3.5-5.1) mEq/L Chloride 103 (98-107) mEq/L Carbon Dioxide 25 (21-32) mEq/L Anion Gap 12.3 (5-15) BUN 8 (7-18) mg/dL Creatinine 0.9 (0.55-1.02) mg/dL Est Cr Clr Drug Dosing 39.43 mL/min Estimated GFR (MDRD) > 60 (>60) mL/min BUN/Creatinine Ratio 8.9 L (14-18) Glucose 123 H (83-115) mg/dL POC Glucose 117 H (83-110) mg/dL Calcium 8.9 (8.5-10.1) mg/dL Magnesium 1.9 (1.8-2.4) mg/dl C-Reactive Protein 2.7 H* (<1.0) mg/dL [place] Results last 24 hrs: Microbiology 10/28/16 05:50 MRSA Surveillance Culture - Final Nasal/Axilla/Groin NO MRSA ISOLATED Med Orders - Current: Current Medications Dextrose/Water (Dextrose 50% In Water) 50 ml IVPUSH ASDIRECTED PRN PRN Reason: Hypoglycemia Donepezil HCl (Aricept) 5 mg PO BEDTIME [facility] Last Admin: 10/29/16 21:12 Dose: 5 mg Haloperidol Lactate (Haldol) 2 mg IVPUSH Q8H PRN PRN Reason: restlessness Potassium Cl/Dextrose/Lact Ringer's (D5 Lr With 20 Meq Kcl) 1,000 mls @ 100 mls /hr IV ASDIRECTED [facility] Last Admin: 10/30/16 10:35 Dose: 100 mls/hr Insulin Aspart (Novolog) 0 unit SUBCUT Q6H [facility] PRN Reason: Protocol Last Admin: 10/30/16 06:20 Dose: Not Given Levothyroxine Sodium (Synthroid) 50 mcg PO DAILY [facility] Last Admin: 10/30/16 10:34 Dose: 50 mcg Lorazepam (Ativan) 0.5 mg IM Q8H PRN PRN Reason: restlessness Morphine Sulfate (Morphine 10 Mg/0.5 Ml Oral Syringe) 2.5 mg PO Q6H PRN PRN Reason: Pain Last Admin: 10/30/16 12:20 Dose: 2.5 mg Oxybutynin Chloride (Oxybutynin Er) 5 mg PO DAILY [facility] Last Admin: 10/30/16 10:41 Dose: Not Given Potassium Chloride (Klor-Con M20) 40 meq PO BID [facility] Last Admin: 10/30/16 10:35 Dose: 40 meq Quetiapine Fumarate (Seroquel) 50 mg PO BEDTIME [facility] Last Admin: 10/29/16 20:19 Dose: Not Given Discontinued Medications Benzocaine/Menthol (Cepacol Sore Throat) 1 lozenge MUCMEM Q1H PRN PRN Reason: Sore Throat Bupivacaine HCl/Epinephrine Bitart (Marcaine 0.5%/Epinephrine 1:200,000) Confirm Administered Dose 50 ml .ROUTE .STK-MED ONE Stop: 10/27/16 14:56 Last Admin: 10/27/16 15:47 Dose: 20 ml Ertapenem (Invanz) Confirm Administered Dose 1 gm .ROUTE .STK-MED ONE Stop: 10/27/16 15:57 Fentanyl (Sublimaze) Confirm Administered Dose 100 mcg .ROUTE .STK-MED ONE Stop: 10/27/16 15:03 Fentanyl (Sublimaze) 25 mcg IVPUSH Q1H PRN PRN Reason: Pain (severe 7-10) Stop: 10/28/16 17:11 Last Admin: 10/28/16 12:51 Dose: 25 mcg Haloperidol Lactate (Haldol) 2 mg IVPUSH Q8H PRN PRN Reason: Agitation Last Admin: 10/29/16 10:05 Dose: 2 mg Haloperidol Lactate (Haldol) 3 mg IVPUSH ONETIME ONE Stop: 10/29/16 12:50 Last Admin: 10/29/16 13:04 Dose: 3 mg Hydromorphone HCl (Dilaudid) Confirm Administered Dose 1 mg .ROUTE .STK-MED ONE Stop: 10/27/16 15:57 Hydromorphone HCl (Dilaudid) 1 mg IVPUSH ONETIME ONE Stop: 10/30/16 08:05 Last Admin: 10/30/16 08:18 Dose: 1 mg Sodium Chloride (Normal Saline) 1,000 mls @ 125 mls/hr IV ASDIRECTED [facility] Last Admin: 10/27/16 10:47 Dose: 125 mls/hr Lidocaine HCl (Xylocaine-Mpf 1%) Confirm Administered Dose 6 mls @ as directed .ROUTE .STK-MED ONE Stop: 10/27/16 15:57 Lactated Ringer's (Ringers, Lactated) 1,000 mls @ 100 mls/hr IV ASDIRECTED [facility] Last Admin: 10/28/16 04:04 Dose: 100 mls/hr Potassium Chloride 40 meq/ (Lactated Ringer's) 1,020 mls @ 102 mls/hr IV ASDIRECTED [facility] Stop: 10/29/16 01:00 Last Admin: 10/28/16 14:35 Dose: 102 mls/hr Magnesium Sulfate 2 gm/ Premix 50 mls @ 25 mls/hr IV ONETIME ONE Stop: 10/30/16 12:03 Last Admin: 10/30/16 10:34 Dose: 25 mls/hr Iopamidol (Isovue-300 (61%)) 100 ml IVPUSH ONETIME ONE Stop: 10/27/16 11:58 Last Admin: 10/27/16 12:03 Dose: 100 ml Lidocaine HCl (Xylocaine 1%) Confirm Administered Dose 50 ml .ROUTE .STK-MED ONE Stop: 10/27/16 14:56 Last Admin: 10/27/16 15:47 Dose: 20 ml Lorazepam (Ativan) 0.5 mg IVPUSH Q8H PRN PRN Reason: Agitation Last Admin: 10/29/16 23:47 Dose: 0.5 mg Lorazepam (Ativan) 1 mg IVPUSH ONETIME ONE Stop: 10/29/16 12:50 Last Admin: 10/29/16 13:04 Dose: 1 mg Metoclopramide HCl (Reglan) 10 mg IVPUSH ONETIME ONE Stop: 10/27/16 13:39 Last Admin: 10/27/16 13:52 Dose: 10 mg Naloxone HCl (Narcan) Confirm Administered Dose 0.4 mg .ROUTE .STK-MED ONE Stop: 10/27/16 16:57 Ondansetron HCl (Zofran) 4 mg IVPUSH ONETIME ONE Stop: 10/27/16 10:32 Last Admin: 10/27/16 10:47 Dose: 4 mg Ondansetron HCl (Zofran) 4 mg IVPUSH Q6H PRN PRN Reason: Nausea/Vomiting Pantoprazole Sodium (Protonix Iv) 40 mg IVPUSH DAILY [facility] Last Admin: 10/29/16 10:05 Dose: 40 mg Propofol (Diprivan 20 Ml) Confirm Administered Dose 200 mg .ROUTE .STK-MED ONE Stop: 10/27/16 15:03 Quetiapine Fumarate (Seroquel) 50 mg PO ONETIME ONE Stop: 10/29/16 11:45 Last Admin: 10/29/16 12:21 Dose: 50 mg Sodium Chloride (Saline Flush) 10 ml FLUSH ASDIRECTED PRN PRN Reason: Keep Vein Open Last Admin: 10/27/16 10:50 Dose: 10 ml Sodium Chloride (Saline Flush) 10 ml FLUSH ONETIME PRN PRN Reason: IV FLUSH Last Admin: 10/27/16 12:03 Dose: 10 ml Succinylcholine Chloride (Succinylcholine In Ns Pf) Confirm Administered Dose 100 mg .ROUTE .STK-MED ONE Stop: 10/27/16 15:57 - Exam General: no acute distress, sedated Lungs: Clear to auscultation, Normal respiratory effort Cardiovascular: Regular Rate, Regular Rhythm Abdomen: soft, no distension, tenderness (mild around the PEG tube site and laparoscopic incision sites). No: rigidity, rebound, guarding Extremities: no cyanosis Skin: warm, dry, intact Wound/Incisions: healing well, no drainage. No: erythema Consult PN Assessment/Plan Procedures: Procedures ASSAY OF CK (CPK) (09/11/15) ASSAY OF LACTIC ACID (02/12/16) ASSAY OF LIPASE (06/18/16) ASSAY OF MAGNESIUM (09/11/15) ASSAY OF NATRIURETIC PEPTIDE (02/12/16) ASSAY OF PHOSPHORUS (09/11/15) ASSAY OF SERUM POTASSIUM (09/11/15) ASSAY OF TROPONIN QUANT (06/18/16) ASSAY THYROID STIM HORMONE (02/12/16) BLOOD CULTURE FOR BACTERIA (02/12/16) BLOOD GASES ANY COMBINATION (02/12/16) BLOOD TYPING SEROLOGIC ABO (09/11/15) BLOOD TYPING SEROLOGIC RH(D) (09/11/15) C-REACTIVE PROTEIN (09/11/15) CHEST X-RAY 1 VIEW FRONTAL (06/18/16) COMPLETE CBC AUTOMATED (09/11/15) COMPLETE CBC W/AUTO DIFF WBC (06/18/16) COMPREHEN METABOLIC PANEL (06/18/16) CT ABD & PELV W/CONTRAST (01/11/16) CT ANGIOGRAPHY CHEST (02/20/15) CT HEAD/BRAIN W/O DYE (02/12/16) ELECTROCARDIOGRAM TRACING (06/18/16) EMERGENCY DEPT VISIT (06/18/16) EMERGENCY DEPT VISIT (02/11/14) FIBRIN DEGRADATION QUANT (02/12/16) GAIT TRAINING THERAPY (09/11/15) GLYCOSYLATED HEMOGLOBIN TEST (09/11/15) HELICOBACTER PYLORI ANTIBODY (06/18/16) HYDRATE IV INFUSION ADD-ON (01/11/16) HYDRATION IV INFUSION INIT (01/11/16) METABOLIC PANEL TOTAL CA (09/11/15) OCCULT BLD FECES 1-3 TESTS (09/11/15) OT EVALUATION (09/11/15) PROTHROMBIN TIME (02/12/16) PT EVALUATION (09/11/15) ROUTINE VENIPUNCTURE (06/18/16) TEST FOR ACETONE/KETONES (09/11/15) THER/PROPH/DIAG INJ IV PUSH (06/18/16) THER/PROPH/DIAG INJ SC/IM (02/20/15) THERAPEUTIC ACTIVITIES (09/11/15) THERAPEUTIC EXERCISES (09/11/15) THROMBOPLASTIN TIME PARTIAL (02/12/16) TX/PRO/DX INJ NEW DRUG ADDON (06/18/16) URINALYSIS AUTO W/SCOPE (02/12/16) WITHDRAWAL OF ARTERIAL BLOOD (02/12/16) X-RAY EXAM OF FEMUR 2/> (09/11/15) X-RAY EXAM OF PELVIS (02/12/16) (1) Hiatal hernia with obstruction but no gangrene SNOMED Code(s): 64086479 Code(s): K44.0 - DIAPHRAGMATIC HERNIA WITH OBSTRUCTION, WITHOUT GANGRENE Current Visit: Yes (2) Nausea and vomiting SNOMED Code(s): 18421232 Code(s): R11.2 - NAUSEA WITH VOMITING, UNSPECIFIED Current Visit: Yes Qualifiers: Vomiting type: unspecified Vomiting Intractability: intractable Qualified Code(s): R11.2 - Nausea with vomiting, unspecified (3) Coffee ground emesis SNOMED Code(s): 535662515, 939406840 Code(s): K92.0 - HEMATEMESIS Current Visit: No Problem List Initiated/Reviewed/Updated: Yes My Orders last 24 hours: My Active Orders 10/29/16 13:48 Communication Order [RC] BID 10/30/16 08:35 PEG Tube Management [Percutaneous Endoscopic Gastostomy Tube] [OM.PC] BID Plan: 81 yo woman s/p laparoscopic decompression of acutely incarcerated hiatal hernia with PEG tube gastropexy on October 27 Patient transferred out of ICU to floor yesterday. I do have some concerns regarding her sedation, likely associated with narcotics. If patient is unable to increase oral intake, PEG tube can certainly be used for tube feeds. No obvious complications from surgery. Will continue to follow along while patient is admitted.
[2016-10-30] MEDS: HYDROmorphone 0.5 MG/0.5 ML Syringe IVPUSH PRN ×2 (15:57→20:49)
[2016-10-30] MEDS: LORazepam 2 MG/ML MDV IM PRN (21:02)
[2016-10-30] MEDS: Donepezil 10 MG Tab PO SCH (21:13)
[2016-10-30] MEDS: QUEtiapine 25 MG Tab PO SCH (21:14)
[2016-10-31] MEDS: Insulin Aspart 100 Units/ML 3 ML Pen SUBCUT SCH ×3 (01:17→13:24)
[2016-10-31] MEDS: HYDROmorphone 0.5 MG/0.5 ML Syringe IVPUSH PRN ×4 (03:05→20:10)
--- NOTE | 2016-10-31 08:57 | PCM.CONSN ---
- General Info Date of Service: 10/31/16 - Review of Systems Systems Review Comment:: Patient has been stable overnight. Afebrile. Still not eating much. - Patient Data Vitals - most recent: Last Vital Signs Temp 97.7 F 10/31/16 08:08 Pulse 78 10/31/16 08:08 Resp 20 10/31/16 08:08 BP 136/90 10/31/16 08:08 Pulse Ox 100 10/31/16 08:08 Weight - most recent: 155 lb 11.2 oz I&O - last 24 hours: Intake & Output 10/30/16 10/31/16 10/31/16 22:59 06:59 14:59 Intake Total 2335 1642 Balance 2335 1642 Lab Results last 24 hrs: Laboratory Results - last 24 hr 10/30/16 10/30/16 10/31/16 Range/Units 13:13 18:03 00:27 WBC (3.98-10.04) K/mm3 RBC (3.98-5.22) M/mm3 Hgb (11.2-15.7) gm/L Hct (34.1-44.9) % MCV (79.4-94.8) fl MCH (25.6-32.2) pg MCHC (32.2-35.5) g/dl RDW Std Deviation (36.4-46.3) fL Plt Count (182-369) K/mm3 MPV (9.4-12.3) fl Neut % (Auto) (34.0-71.1) % Lymph % (Auto) (19.3-51.7) % [place] % (Auto) (4.7-12.5) % Eos % (Auto) (0.7-5.8) Baso % (Auto) (0.1-1.2) % Neut # (Auto) (1.56-6.13) K/mm3 Lymph # (Auto) (1.18-3.74) K/mm3 [place] # (Auto) (0.24-0.36) K/mm3 Eos # (Auto) (0.04-0.36) K/mm3 Baso # (Auto) (0.01-0.08) K/mm3 Sodium (136-145) mEq/L Potassium (3.5-5.1) mEq/L Chloride (98-107) mEq/L Carbon Dioxide (21-32) mEq/L Anion Gap (5-15) BUN (7-18) mg/dL Creatinine (0.55-1.02) mg/dL Est Cr Clr Drug Dosing mL/min Estimated GFR (MDRD) (>60) mL/min BUN/Creatinine Ratio (14-18) Glucose (83-115) mg/dL POC Glucose 117 H 131 H 139 H (83-110) mg/dL Calcium (8.5-10.1) mg/dL 10/31/16 10/31/16 10/31/16 Range/Units 06:37 06:38 06:38 WBC 6.93 (3.98-10.04) K/mm3 RBC 4.78 (3.98-5.22) M/mm3 Hgb 14.0 (11.2-15.7) gm/L Hct 42.0 (34.1-44.9) % MCV 87.9 (79.4-94.8) fl MCH 29.3 (25.6-32.2) pg MCHC 33.3 (32.2-35.5) g/dl RDW Std Deviation 45.8 (36.4-46.3) fL Plt Count 310 (182-369) K/mm3 MPV 9.6 (9.4-12.3) fl Neut % (Auto) 59.9 (34.0-71.1) % Lymph % (Auto) 21.1 (19.3-51.7) % [place] % (Auto) 14.3 H (4.7-12.5) % Eos % (Auto) 4.0 (0.7-5.8) Baso % (Auto) 0.6 (0.1-1.2) % Neut # (Auto) 4.15 (1.56-6.13) K/mm3 Lymph # (Auto) 1.46 (1.18-3.74) K/mm3 [place] # (Auto) 0.99 H (0.24-0.36) K/mm3 Eos # (Auto) 0.28 (0.04-0.36) K/mm3 Baso # (Auto) 0.04 (0.01-0.08) K/mm3 Sodium 137 (136-145) mEq/L Potassium 4.1 (3.5-5.1) mEq/L Chloride 105 (98-107) mEq/L Carbon Dioxide 23 (21-32) mEq/L Anion Gap 13.1 (5-15) BUN 8 (7-18) mg/dL Creatinine 1.0 (0.55-1.02) mg/dL Est Cr Clr Drug Dosing 35.49 mL/min Estimated GFR (MDRD) 53 (>60) mL/min BUN/Creatinine Ratio 8.0 L (14-18) Glucose 130 H (83-115) mg/dL POC Glucose 121 H (83-110) mg/dL Calcium 8.7 (8.5-10.1) mg/dL Med Orders - Current: Current Medications Dextrose/Water (Dextrose 50% In Water) 50 ml IVPUSH ASDIRECTED PRN PRN Reason: Hypoglycemia Donepezil HCl (Aricept) 5 mg PO BEDTIME [facility] Last Admin: 10/30/16 21:13 Dose: 5 mg Haloperidol Lactate (Haldol) 2 mg IVPUSH Q8H PRN PRN Reason: restlessness Hydromorphone HCl (Dilaudid) 0.5 mg IVPUSH Q4H PRN PRN Reason: Pain Last Admin: 10/31/16 03:05 Dose: 0.5 mg Potassium Cl/Dextrose/Lact Ringer's (D5 Lr With 20 Meq Kcl) 1,000 mls @ 100 mls /hr IV ASDIRECTED [facility] Last Admin: 10/30/16 21:07 Dose: 100 mls/hr Insulin Aspart (Novolog) 0 unit SUBCUT Q6H [facility] PRN Reason: Protocol Last Admin: 10/31/16 06:48 Dose: Not Given Levothyroxine Sodium (Synthroid) 50 mcg PO DAILY [facility] Last Admin: 10/30/16 10:34 Dose: 50 mcg Lorazepam (Ativan) 0.5 mg IM Q8H PRN PRN Reason: restlessness Last Admin: 10/30/16 21:02 Dose: 0.5 mg Morphine Sulfate (Morphine 10 Mg/0.5 Ml Oral Syringe) 2.5 mg PO Q6H PRN PRN Reason: Pain Last Admin: 10/30/16 23:57 Dose: 2.5 mg Oxybutynin Chloride (Oxybutynin Er) 5 mg PO DAILY [facility] Last Admin: 10/30/16 10:41 Dose: Not Given Potassium Chloride (Klor-Con M20) 40 meq PO BID [facility] Last Admin: 10/30/16 21:13 Dose: 40 meq Quetiapine Fumarate (Seroquel) 50 mg PO BEDTIME [facility] Last Admin: 10/30/16 21:14 Dose: 50 mg Discontinued Medications Benzocaine/Menthol (Cepacol Sore Throat) 1 lozenge MUCMEM Q1H PRN PRN Reason: Sore Throat Bupivacaine HCl/Epinephrine Bitart (Marcaine 0.5%/Epinephrine 1:200,000) Confirm Administered Dose 50 ml .ROUTE .STK-MED ONE Stop: 10/27/16 14:56 Last Admin: 10/27/16 15:47 Dose: 20 ml Ertapenem (Invanz) Confirm Administered Dose 1 gm .ROUTE .STK-MED ONE Stop: 10/27/16 15:57 Fentanyl (Sublimaze) Confirm Administered Dose 100 mcg .ROUTE .STK-MED ONE Stop: 10/27/16 15:03 Fentanyl (Sublimaze) 25 mcg IVPUSH Q1H PRN PRN Reason: Pain (severe 7-10) Stop: 10/28/16 17:11 Last Admin: 10/28/16 12:51 Dose: 25 mcg Haloperidol Lactate (Haldol) 2 mg IVPUSH Q8H PRN PRN Reason: Agitation Last Admin: 10/29/16 10:05 Dose: 2 mg Haloperidol Lactate (Haldol) 3 mg IVPUSH ONETIME ONE Stop: 10/29/16 12:50 Last Admin: 10/29/16 13:04 Dose: 3 mg Hydromorphone HCl (Dilaudid) Confirm Administered Dose 1 mg .ROUTE .STK-MED ONE Stop: 10/27/16 15:57 Hydromorphone HCl (Dilaudid) 1 mg IVPUSH ONETIME ONE Stop: 10/30/16 08:05 Last Admin: 10/30/16 08:18 Dose: 1 mg Sodium Chloride (Normal Saline) 1,000 mls @ 125 mls/hr IV ASDIRECTED [facility] Last Admin: 10/27/16 10:47 Dose: 125 mls/hr Lidocaine HCl (Xylocaine-Mpf 1%) Confirm Administered Dose 6 mls @ as directed .ROUTE .STK-MED ONE Stop: 10/27/16 15:57 Lactated Ringer's (Ringers, Lactated) 1,000 mls @ 100 mls/hr IV ASDIRECTED [facility] Last Admin: 10/28/16 04:04 Dose: 100 mls/hr Potassium Chloride 40 meq/ (Lactated Ringer's) 1,020 mls @ 102 mls/hr IV ASDIRECTED [facility] Stop: 10/29/16 01:00 Last Admin: 10/28/16 14:35 Dose: 102 mls/hr Magnesium Sulfate 2 gm/ Premix 50 mls @ 25 mls/hr IV ONETIME ONE Stop: 10/30/16 12:03 Last Admin: 10/30/16 10:34 Dose: 25 mls/hr Iopamidol (Isovue-300 (61%)) 100 ml IVPUSH ONETIME ONE Stop: 10/27/16 11:58 Last Admin: 10/27/16 12:03 Dose: 100 ml Lidocaine HCl (Xylocaine 1%) Confirm Administered Dose 50 ml .ROUTE .STK-MED ONE Stop: 10/27/16 14:56 Last Admin: 10/27/16 15:47 Dose: 20 ml Lorazepam (Ativan) 0.5 mg IVPUSH Q8H PRN PRN Reason: Agitation Last Admin: 10/29/16 23:47 Dose: 0.5 mg Lorazepam (Ativan) 1 mg IVPUSH ONETIME ONE Stop: 10/29/16 12:50 Last Admin: 10/29/16 13:04 Dose: 1 mg Metoclopramide HCl (Reglan) 10 mg IVPUSH ONETIME ONE Stop: 10/27/16 13:39 Last Admin: 10/27/16 13:52 Dose: 10 mg Naloxone HCl (Narcan) Confirm Administered Dose 0.4 mg .ROUTE .STK-MED ONE Stop: 10/27/16 16:57 Ondansetron HCl (Zofran) 4 mg IVPUSH ONETIME ONE Stop: 10/27/16 10:32 Last Admin: 10/27/16 10:47 Dose: 4 mg Ondansetron HCl (Zofran) 4 mg IVPUSH Q6H PRN PRN Reason: Nausea/Vomiting Pantoprazole Sodium (Protonix Iv) 40 mg IVPUSH DAILY [facility] Last Admin: 10/29/16 10:05 Dose: 40 mg Propofol (Diprivan 20 Ml) Confirm Administered Dose 200 mg .ROUTE .STK-MED ONE Stop: 10/27/16 15:03 Quetiapine Fumarate (Seroquel) 50 mg PO ONETIME ONE Stop: 10/29/16 11:45 Last Admin: 10/29/16 12:21 Dose: 50 mg Sodium Chloride (Saline Flush) 10 ml FLUSH ASDIRECTED PRN PRN Reason: Keep Vein Open Last Admin: 10/27/16 10:50 Dose: 10 ml Sodium Chloride (Saline Flush) 10 ml FLUSH ONETIME PRN PRN Reason: IV FLUSH Last Admin: 10/27/16 12:03 Dose: 10 ml Succinylcholine Chloride (Succinylcholine In Ns Pf) Confirm Administered Dose 100 mg .ROUTE .STK-MED ONE Stop: 10/27/16 15:57 - Exam Quality Assessment: No: supplemental oxygen General: no acute distress, lethargic, other (Seated in her recliner, will move her hands, but not to commands) Lungs: Clear to auscultation, Normal respiratory effort Cardiovascular: Regular Rate, Regular Rhythm Abdomen: soft, no tenderness, no distension, other (PEG tube coiled under abdominal binder, slight bruising around the entry site, otherwise unremarkable) Skin: warm, dry, intact Wound/Incisions: healing well, no drainage. No: erythema Consult PN Assessment/Plan Procedures: Procedures ASSAY OF CK (CPK) (09/11/15) ASSAY OF LACTIC ACID (02/12/16) ASSAY OF LIPASE (06/18/16) ASSAY OF MAGNESIUM (09/11/15) ASSAY OF NATRIURETIC PEPTIDE (02/12/16) ASSAY OF PHOSPHORUS (09/11/15) ASSAY OF SERUM POTASSIUM (09/11/15) ASSAY OF TROPONIN QUANT (06/18/16) ASSAY THYROID STIM HORMONE (02/12/16) BLOOD CULTURE FOR BACTERIA (02/12/16) BLOOD GASES ANY COMBINATION (02/12/16) BLOOD TYPING SEROLOGIC ABO (09/11/15) BLOOD TYPING SEROLOGIC RH(D) (09/11/15) C-REACTIVE PROTEIN (09/11/15) CHEST X-RAY 1 VIEW FRONTAL (06/18/16) COMPLETE CBC AUTOMATED (09/11/15) COMPLETE CBC W/AUTO DIFF WBC (06/18/16) COMPREHEN METABOLIC PANEL (06/18/16) CT ABD & PELV W/CONTRAST (01/11/16) CT ANGIOGRAPHY CHEST (02/20/15) CT HEAD/BRAIN W/O DYE (02/12/16) ELECTROCARDIOGRAM TRACING (06/18/16) EMERGENCY DEPT VISIT (06/18/16) EMERGENCY DEPT VISIT (02/11/14) FIBRIN DEGRADATION QUANT (02/12/16) GAIT TRAINING THERAPY (09/11/15) GLYCOSYLATED HEMOGLOBIN TEST (09/11/15) HELICOBACTER PYLORI ANTIBODY (06/18/16) HYDRATE IV INFUSION ADD-ON (01/11/16) HYDRATION IV INFUSION INIT (01/11/16) METABOLIC PANEL TOTAL CA (09/11/15) OCCULT BLD FECES 1-3 TESTS (09/11/15) OT EVALUATION (09/11/15) PROTHROMBIN TIME (02/12/16) PT EVALUATION (09/11/15) ROUTINE VENIPUNCTURE (06/18/16) TEST FOR ACETONE/KETONES (09/11/15) THER/PROPH/DIAG INJ IV PUSH (06/18/16) THER/PROPH/DIAG INJ SC/IM (02/20/15) THERAPEUTIC ACTIVITIES (09/11/15) THERAPEUTIC EXERCISES (09/11/15) THROMBOPLASTIN TIME PARTIAL (02/12/16) TX/PRO/DX INJ NEW DRUG ADDON (06/18/16) URINALYSIS AUTO W/SCOPE (02/12/16) WITHDRAWAL OF ARTERIAL BLOOD (02/12/16) X-RAY EXAM OF FEMUR 2/> (09/11/15) X-RAY EXAM OF PELVIS (02/12/16) (1) Hiatal hernia with obstruction but no gangrene SNOMED Code(s): 44412833 Code(s): K44.0 - DIAPHRAGMATIC HERNIA WITH OBSTRUCTION, WITHOUT GANGRENE Current Visit: Yes Problem List Initiated/Reviewed/Updated: Yes My Orders last 24 hours: My Active Orders 10/30/16 08:35 PEG Tube Management [Percutaneous Endoscopic Gastostomy Tube] [OM.PC] BID 10/31/16 08:35 PEG Tube Management [Percutaneous Endoscopic Gastostomy Tube] [OM.PC] BID Plan: 81 yo woman s/p laparoscopic decompression of acutely incarcerated hiatal hernia with PEG tube gastropexy on March 28 PEG tube currently clamped. Poor PO intake currently. The PEG tube can be used for feeds or medications if necessary. Discuss with Dr. Graves that possibly home health could come out to [place] to provide PEG tube flushes for approximately the next 6-8 weeks, the time that the PEG tube will need to be in place prior to its removal. She is going to check with social work on this. No obvious complications from surgery. Will continue to follow along while patient is admitted.
[2016-10-31] MEDS: Potassium Chloride 20 MEQ Tab.ER PO SCH ×2 (09:33→20:23)
[2016-10-31] MEDS: Levothyroxine 50 MCG Tab PO SCH (09:34)
[2016-10-31] MEDS: Oxybutynin 5 MG Tab.ER PO SCH (09:43)
--- NOTE | 2016-10-31 11:14 | PCM.PN ---
- General Info Date of Service: 10/31/16 Functional Status: Reports: tolerating diet (minimal intake), urinating - Review of Systems General: Reports: No Symptoms HEENT: Reports: no symptoms Pulmonary: Reports: no symptoms Cardiovascular: Reports: No Symptoms Gastrointestinal: Reports: No symptoms Genitourinary: Reports: no symptoms Musculoskeletal: Reports: no symptoms Skin: Reports: no symptoms Neurological: Reports: No Symptoms Psychiatric: Reports: no symptoms - Patient Data Vitals - most recent: Last Vital Signs Temp 36.5 C 10/31/16 08:08 Pulse 78 10/31/16 08:08 Resp 20 10/31/16 08:08 BP 136/90 10/31/16 08:08 Pulse Ox 100 10/31/16 08:08 Weight - most recent: 70.624 kg I&O - last 24 hours: Intake & Output 10/30/16 10/31/16 10/31/16 22:59 06:59 14:59 Intake Total 1585 1642 750 Balance 1585 1642 750 Lab Results last 24 hrs: Laboratory Results - last 24 hr 10/30/16 10/30/16 10/31/16 Range/Units 13:13 18:03 00:27 WBC (3.98-10.04) K/mm3 RBC (3.98-5.22) M/mm3 Hgb (11.2-15.7) gm/L Hct (34.1-44.9) % MCV (79.4-94.8) fl MCH (25.6-32.2) pg MCHC (32.2-35.5) g/dl RDW Std Deviation (36.4-46.3) fL Plt Count (182-369) K/mm3 MPV (9.4-12.3) fl Neut % (Auto) (34.0-71.1) % Lymph % (Auto) (19.3-51.7) % [place] % (Auto) (4.7-12.5) % Eos % (Auto) (0.7-5.8) Baso % (Auto) (0.1-1.2) % Neut # (Auto) (1.56-6.13) K/mm3 Lymph # (Auto) (1.18-3.74) K/mm3 [place] # (Auto) (0.24-0.36) K/mm3 Eos # (Auto) (0.04-0.36) K/mm3 Baso # (Auto) (0.01-0.08) K/mm3 Sodium (136-145) mEq/L Potassium (3.5-5.1) mEq/L Chloride (98-107) mEq/L Carbon Dioxide (21-32) mEq/L Anion Gap (5-15) BUN (7-18) mg/dL Creatinine (0.55-1.02) mg/dL Est Cr Clr Drug Dosing mL/min Estimated GFR (MDRD) (>60) mL/min BUN/Creatinine Ratio (14-18) Glucose (83-115) mg/dL POC Glucose 117 H 131 H 139 H (83-110) mg/dL Calcium (8.5-10.1) mg/dL 10/31/16 10/31/16 10/31/16 Range/Units 06:37 06:38 06:38 WBC 6.93 (3.98-10.04) K/mm3 RBC 4.78 (3.98-5.22) M/mm3 Hgb 14.0 (11.2-15.7) gm/L Hct 42.0 (34.1-44.9) % MCV 87.9 (79.4-94.8) fl MCH 29.3 (25.6-32.2) pg MCHC 33.3 (32.2-35.5) g/dl RDW Std Deviation 45.8 (36.4-46.3) fL Plt Count 310 (182-369) K/mm3 MPV 9.6 (9.4-12.3) fl Neut % (Auto) 59.9 (34.0-71.1) % Lymph % (Auto) 21.1 (19.3-51.7) % [place] % (Auto) 14.3 H (4.7-12.5) % Eos % (Auto) 4.0 (0.7-5.8) Baso % (Auto) 0.6 (0.1-1.2) % Neut # (Auto) 4.15 (1.56-6.13) K/mm3 Lymph # (Auto) 1.46 (1.18-3.74) K/mm3 [place] # (Auto) 0.99 H (0.24-0.36) K/mm3 Eos # (Auto) 0.28 (0.04-0.36) K/mm3 Baso # (Auto) 0.04 (0.01-0.08) K/mm3 Sodium 137 (136-145) mEq/L Potassium 4.1 (3.5-5.1) mEq/L Chloride 105 (98-107) mEq/L Carbon Dioxide 23 (21-32) mEq/L Anion Gap 13.1 (5-15) BUN 8 (7-18) mg/dL Creatinine 1.0 (0.55-1.02) mg/dL Est Cr Clr Drug Dosing 35.49 mL/min Estimated GFR (MDRD) 53 (>60) mL/min BUN/Creatinine Ratio 8.0 L (14-18) Glucose 130 H (83-115) mg/dL POC Glucose 121 H (83-110) mg/dL Calcium 8.7 (8.5-10.1) mg/dL Med Orders - Current: Current Medications Dextrose/Water (Dextrose 50% In Water) 50 ml IVPUSH ASDIRECTED PRN PRN Reason: Hypoglycemia Donepezil HCl (Aricept) 5 mg PO BEDTIME [facility] Last Admin: 10/30/16 21:13 Dose: 5 mg Haloperidol Lactate (Haldol) 2 mg IVPUSH Q8H PRN PRN Reason: restlessness Hydromorphone HCl (Dilaudid) 0.5 mg IVPUSH Q4H PRN PRN Reason: Pain Last Admin: 10/31/16 09:34 Dose: 0.5 mg Potassium Cl/Dextrose/Lact Ringer's (D5 Lr With 20 Meq Kcl) 1,000 mls @ 100 mls /hr IV ASDIRECTED [facility] Last Admin: 10/30/16 21:07 Dose: 100 mls/hr Insulin Aspart (Novolog) 0 unit SUBCUT Q6H [facility] PRN Reason: Protocol Last Admin: 10/31/16 06:48 Dose: Not Given Levothyroxine Sodium (Synthroid) 50 mcg PO DAILY [facility] Last Admin: 10/31/16 09:34 Dose: 50 mcg Lorazepam (Ativan) 0.5 mg IM Q8H PRN PRN Reason: restlessness Last Admin: 10/30/16 21:02 Dose: 0.5 mg Morphine Sulfate (Morphine 10 Mg/0.5 Ml Oral Syringe) 2.5 mg PO Q6H PRN PRN Reason: Pain Last Admin: 10/30/16 23:57 Dose: 2.5 mg Oxybutynin Chloride (Oxybutynin Er) 5 mg PO DAILY [facility] Last Admin: 10/31/16 09:43 Dose: Not Given Potassium Chloride (Klor-Con M20) 40 meq PO BID [facility] Last Admin: 10/31/16 09:33 Dose: 40 meq Quetiapine Fumarate (Seroquel) 50 mg PO BEDTIME [facility] Last Admin: 10/30/16 21:14 Dose: 50 mg Discontinued Medications Benzocaine/Menthol (Cepacol Sore Throat) 1 lozenge MUCMEM Q1H PRN PRN Reason: Sore Throat Bupivacaine HCl/Epinephrine Bitart (Marcaine 0.5%/Epinephrine 1:200,000) Confirm Administered Dose 50 ml .ROUTE .STK-MED ONE Stop: 10/27/16 14:56 Last Admin: 10/27/16 15:47 Dose: 20 ml Ertapenem (Invanz) Confirm Administered Dose 1 gm .ROUTE .STK-MED ONE Stop: 10/27/16 15:57 Fentanyl (Sublimaze) Confirm Administered Dose 100 mcg .ROUTE .STK-MED ONE Stop: 10/27/16 15:03 Fentanyl (Sublimaze) 25 mcg IVPUSH Q1H PRN PRN Reason: Pain (severe 7-10) Stop: 10/28/16 17:11 Last Admin: 10/28/16 12:51 Dose: 25 mcg Haloperidol Lactate (Haldol) 2 mg IVPUSH Q8H PRN PRN Reason: Agitation Last Admin: 10/29/16 10:05 Dose: 2 mg Haloperidol Lactate (Haldol) 3 mg IVPUSH ONETIME ONE Stop: 10/29/16 12:50 Last Admin: 10/29/16 13:04 Dose: 3 mg Hydromorphone HCl (Dilaudid) Confirm Administered Dose 1 mg .ROUTE .STK-MED ONE Stop: 10/27/16 15:57 Hydromorphone HCl (Dilaudid) 1 mg IVPUSH ONETIME ONE Stop: 10/30/16 08:05 Last Admin: 10/30/16 08:18 Dose: 1 mg Sodium Chloride (Normal Saline) 1,000 mls @ 125 mls/hr IV ASDIRECTED [facility] Last Admin: 10/27/16 10:47 Dose: 125 mls/hr Lidocaine HCl (Xylocaine-Mpf 1%) Confirm Administered Dose 6 mls @ as directed .ROUTE .STK-MED ONE Stop: 10/27/16 15:57 Lactated Ringer's (Ringers, Lactated) 1,000 mls @ 100 mls/hr IV ASDIRECTED [facility] Last Admin: 10/28/16 04:04 Dose: 100 mls/hr Potassium Chloride 40 meq/ (Lactated Ringer's) 1,020 mls @ 102 mls/hr IV ASDIRECTED [facility] Stop: 10/29/16 01:00 Last Admin: 10/28/16 14:35 Dose: 102 mls/hr Magnesium Sulfate 2 gm/ Premix 50 mls @ 25 mls/hr IV ONETIME ONE Stop: 10/30/16 12:03 Last Admin: 10/30/16 10:34 Dose: 25 mls/hr Iopamidol (Isovue-300 (61%)) 100 ml IVPUSH ONETIME ONE Stop: 10/27/16 11:58 Last Admin: 10/27/16 12:03 Dose: 100 ml Lidocaine HCl (Xylocaine 1%) Confirm Administered Dose 50 ml .ROUTE .STK-MED ONE Stop: 10/27/16 14:56 Last Admin: 10/27/16 15:47 Dose: 20 ml Lorazepam (Ativan) 0.5 mg IVPUSH Q8H PRN PRN Reason: Agitation Last Admin: 10/29/16 23:47 Dose: 0.5 mg Lorazepam (Ativan) 1 mg IVPUSH ONETIME ONE Stop: 10/29/16 12:50 Last Admin: 10/29/16 13:04 Dose: 1 mg Metoclopramide HCl (Reglan) 10 mg IVPUSH ONETIME ONE Stop: 10/27/16 13:39 Last Admin: 10/27/16 13:52 Dose: 10 mg Naloxone HCl (Narcan) Confirm Administered Dose 0.4 mg .ROUTE .STK-MED ONE Stop: 10/27/16 16:57 Ondansetron HCl (Zofran) 4 mg IVPUSH ONETIME ONE Stop: 10/27/16 10:32 Last Admin: 10/27/16 10:47 Dose: 4 mg Ondansetron HCl (Zofran) 4 mg IVPUSH Q6H PRN PRN Reason: Nausea/Vomiting Pantoprazole Sodium (Protonix Iv) 40 mg IVPUSH DAILY [facility] Last Admin: 10/29/16 10:05 Dose: 40 mg Propofol (Diprivan 20 Ml) Confirm Administered Dose 200 mg .ROUTE .STK-MED ONE Stop: 10/27/16 15:03 Quetiapine Fumarate (Seroquel) 50 mg PO ONETIME ONE Stop: 10/29/16 11:45 Last Admin: 10/29/16 12:21 Dose: 50 mg Sodium Chloride (Saline Flush) 10 ml FLUSH ASDIRECTED PRN PRN Reason: Keep Vein Open Last Admin: 10/27/16 10:50 Dose: 10 ml Sodium Chloride (Saline Flush) 10 ml FLUSH ONETIME PRN PRN Reason: IV FLUSH Last Admin: 10/27/16 12:03 Dose: 10 ml Succinylcholine Chloride (Succinylcholine In Ns Pf) Confirm Administered Dose 100 mg .ROUTE .STK-MED ONE Stop: 10/27/16 15:57 - Exam Quality Assessment: DVT prophylaxis General: oriented, no acute distress HEENT: Pupils equal, Pupils reactive, EOMI Neck: supple, trachea midline, no JVD Lungs: Normal respiratory effort Cardiovascular: Regular Rate Abdomen: bowel sounds present, soft, no distension, tenderness (minimal) (Female) Exam: Deferred Back Exam: normal inspection Extremities: normal pulses Skin: warm Wound/Incisions: dressing dry and intact Neurological: no new focal deficit Psy/Mental Status: alert - Problem List Review Problem List Initiated/Reviewed/Updated: Yes - My Orders Last 24 Hours: My Active Orders 10/30/16 10:15 Potassium Chloride [Klor-Con M20] 40 meq PO BID 10/30/16 10:33 Morphine [Morphine 10 MG/0.5 ML Oral Syringe] 2.5 mg PO Q6H PRN 10/30/16 10:54 LORazepam [Ativan] 0.5 mg IM Q8H PRN 10/30/16 10:59 Haloperidol Lactate [Haldol] 2 mg IVPUSH Q8H PRN 10/30/16 15:27 HYDROmorphone [Dilaudid] 0.5 mg IVPUSH Q4H PRN 10/30/16 Dinner Full Liquid Diet [DIET] - Plan Plan:: Impression/Plan: POD 4 Pre/Post op DX ICHH with gastric outlet obstruction Post op: dx lap; reduction of incarcerated hiatal hernia; gastropexy with PEG tube Chronic HTN Hypothyroidism Hx of positive H Pylori Alzheimer Dementia Diverticulitis Plan: Confusion, restlessness, continue 1:1 sitter in evening Flush H2O 30 cc daily Labs Qd, replace electrolytes as needed. Address pain mgt; keep home meds as ordered. Advance diet as appropriate DVT/GI prophylaxis NEEDS TO [facility]CT [facility] FOR PEG. LOS>96 hours
[2016-10-31] MEDS: Dextrose 5%-Lact Ringers w/KCl 1,000 ML IV SCH (17:32)
[2016-10-31] MEDS: Donepezil 10 MG Tab PO SCH (20:15)
[2016-10-31] MEDS: QUEtiapine 25 MG Tab PO SCH (20:15)
[2016-10-31] MEDS: Morphine 10 MG/0.5 ML Oral Syringe PO PRN (22:52)
[2016-10-31] MEDS: LORazepam 2 MG/ML MDV IM PRN (23:18)
[2016-11-01] MEDS: HYDROmorphone 0.5 MG/0.5 ML Syringe IVPUSH PRN ×4 (02:29→23:19)
[2016-11-01] MEDS: Dextrose 5%-Lact Ringers w/KCl 1,000 ML IV SCH ×2 (03:47→14:02)
[2016-11-01] MEDS: Morphine 10 MG/0.5 ML Oral Syringe PO PRN (06:52)
--- NOTE | 2016-11-01 08:20 | PCM.CONSN ---
- General Info Date of Service: 11/01/16 - Review of Systems Systems Review Comment:: No substantial changes. Afebrile. Eating small amounts. Agitation at night. Still c/o abdominal pain occasionally and receiving pain medication. - Patient Data Vitals - most recent: Last Vital Signs Temp 98.2 F 11/01/16 08:00 Pulse 79 11/01/16 08:00 Resp 20 11/01/16 08:00 BP 150/90 H 11/01/16 08:00 Pulse Ox 100 11/01/16 08:00 Weight - most recent: 154 lb 8 oz I&O - last 24 hours: Intake & Output 10/31/16 11/01/16 11/01/16 22:59 06:59 14:59 Intake Total 1954 216 Output Total 1250 Balance 1954 91 Lab Results last 24 hrs: Laboratory Results - last 24 hr 11/01/16 Range/Units 05:15 Magnesium 1.9 (1.8-2.4) mg/dl Med Orders - Current: Current Medications Dextrose/Water (Dextrose 50% In Water) 50 ml IVPUSH ASDIRECTED PRN PRN Reason: Hypoglycemia Donepezil HCl (Aricept) 5 mg PO BEDTIME [facility] Last Admin: 10/31/16 20:15 Dose: 5 mg Haloperidol Lactate (Haldol) 2 mg IVPUSH Q8H PRN PRN Reason: restlessness Hydromorphone HCl (Dilaudid) 0.5 mg IVPUSH Q4H PRN PRN Reason: Pain Last Admin: 11/01/16 02:29 Dose: 0.5 mg Potassium Cl/Dextrose/Lact Ringer's (D5 Lr With 20 Meq Kcl) 1,000 mls @ 100 mls /hr IV ASDIRECTED [facility] Last Admin: 11/01/16 03:47 Dose: 100 mls/hr Levothyroxine Sodium (Synthroid) 50 mcg PO DAILY [facility] Last Admin: 10/31/16 09:34 Dose: 50 mcg Lorazepam (Ativan) 0.5 mg IM Q8H PRN PRN Reason: restlessness Last Admin: 10/31/16 23:18 Dose: 0.5 mg Morphine Sulfate (Morphine 10 Mg/0.5 Ml Oral Syringe) 2.5 mg PO Q6H PRN PRN Reason: Pain Last Admin: 11/01/16 06:52 Dose: 2.5 mg Oxybutynin Chloride (Oxybutynin Er) 5 mg PO DAILY [facility] Last Admin: 10/31/16 09:43 Dose: Not Given Potassium Chloride (Klor-Con M20) 40 meq PO BID [facility] Last Admin: 10/31/16 20:23 Dose: 40 meq Quetiapine Fumarate (Seroquel) 50 mg PO BEDTIME [facility] Last Admin: 10/31/16 20:15 Dose: 50 mg Discontinued Medications Benzocaine/Menthol (Cepacol Sore Throat) 1 lozenge MUCMEM Q1H PRN PRN Reason: Sore Throat Bupivacaine HCl/Epinephrine Bitart (Marcaine 0.5%/Epinephrine 1:200,000) Confirm Administered Dose 50 ml .ROUTE .STK-MED ONE Stop: 10/27/16 14:56 Last Admin: 10/27/16 15:47 Dose: 20 ml Ertapenem (Invanz) Confirm Administered Dose 1 gm .ROUTE .STK-MED ONE Stop: 10/27/16 15:57 Fentanyl (Sublimaze) Confirm Administered Dose 100 mcg .ROUTE .STK-MED ONE Stop: 10/27/16 15:03 Fentanyl (Sublimaze) 25 mcg IVPUSH Q1H PRN PRN Reason: Pain (severe 7-10) Stop: 10/28/16 17:11 Last Admin: 10/28/16 12:51 Dose: 25 mcg Haloperidol Lactate (Haldol) 2 mg IVPUSH Q8H PRN PRN Reason: Agitation Last Admin: 10/29/16 10:05 Dose: 2 mg Haloperidol Lactate (Haldol) 3 mg IVPUSH ONETIME ONE Stop: 10/29/16 12:50 Last Admin: 10/29/16 13:04 Dose: 3 mg Hydromorphone HCl (Dilaudid) Confirm Administered Dose 1 mg .ROUTE .STK-MED ONE Stop: 10/27/16 15:57 Hydromorphone HCl (Dilaudid) 1 mg IVPUSH ONETIME ONE Stop: 10/30/16 08:05 Last Admin: 10/30/16 08:18 Dose: 1 mg Sodium Chloride (Normal Saline) 1,000 mls @ 125 mls/hr IV ASDIRECTED [facility] Last Admin: 10/27/16 10:47 Dose: 125 mls/hr Lidocaine HCl (Xylocaine-Mpf 1%) Confirm Administered Dose 6 mls @ as directed .ROUTE .STK-MED ONE Stop: 10/27/16 15:57 Lactated Ringer's (Ringers, Lactated) 1,000 mls @ 100 mls/hr IV ASDIRECTED [facility] Last Admin: 10/28/16 04:04 Dose: 100 mls/hr Potassium Chloride 40 meq/ (Lactated Ringer's) 1,020 mls @ 102 mls/hr IV ASDIRECTED [facility] Stop: 10/29/16 01:00 Last Admin: 10/28/16 14:35 Dose: 102 mls/hr Magnesium Sulfate 2 gm/ Premix 50 mls @ 25 mls/hr IV ONETIME ONE Stop: 10/30/16 12:03 Last Admin: 10/30/16 10:34 Dose: 25 mls/hr Insulin Aspart (Novolog) 0 unit SUBCUT Q6H [facility] PRN Reason: Protocol Last Admin: 10/31/16 13:24 Dose: Not Given Iopamidol (Isovue-300 (61%)) 100 ml IVPUSH ONETIME ONE Stop: 10/27/16 11:58 Last Admin: 10/27/16 12:03 Dose: 100 ml Lidocaine HCl (Xylocaine 1%) Confirm Administered Dose 50 ml .ROUTE .STK-MED ONE Stop: 10/27/16 14:56 Last Admin: 10/27/16 15:47 Dose: 20 ml Lorazepam (Ativan) 0.5 mg IVPUSH Q8H PRN PRN Reason: Agitation Last Admin: 10/29/16 23:47 Dose: 0.5 mg Lorazepam (Ativan) 1 mg IVPUSH ONETIME ONE Stop: 10/29/16 12:50 Last Admin: 10/29/16 13:04 Dose: 1 mg Metoclopramide HCl (Reglan) 10 mg IVPUSH ONETIME ONE Stop: 10/27/16 13:39 Last Admin: 10/27/16 13:52 Dose: 10 mg Naloxone HCl (Narcan) Confirm Administered Dose 0.4 mg .ROUTE .STK-MED ONE Stop: 10/27/16 16:57 Ondansetron HCl (Zofran) 4 mg IVPUSH ONETIME ONE Stop: 10/27/16 10:32 Last Admin: 10/27/16 10:47 Dose: 4 mg Ondansetron HCl (Zofran) 4 mg IVPUSH Q6H PRN PRN Reason: Nausea/Vomiting Pantoprazole Sodium (Protonix Iv) 40 mg IVPUSH DAILY [facility] Last Admin: 10/29/16 10:05 Dose: 40 mg Propofol (Diprivan 20 Ml) Confirm Administered Dose 200 mg .ROUTE .STK-MED ONE Stop: 10/27/16 15:03 Quetiapine Fumarate (Seroquel) 50 mg PO ONETIME ONE Stop: 10/29/16 11:45 Last Admin: 10/29/16 12:21 Dose: 50 mg Sodium Chloride (Saline Flush) 10 ml FLUSH ASDIRECTED PRN PRN Reason: Keep Vein Open Last Admin: 10/27/16 10:50 Dose: 10 ml Sodium Chloride (Saline Flush) 10 ml FLUSH ONETIME PRN PRN Reason: IV FLUSH Last Admin: 10/27/16 12:03 Dose: 10 ml Succinylcholine Chloride (Succinylcholine In Ns Pf) Confirm Administered Dose 100 mg .ROUTE .STK-MED ONE Stop: 10/27/16 15:57 - Exam General: sedated HEENT: No: Scleral icterus Lungs: Clear to auscultation, Normal respiratory effort Cardiovascular: Regular Rate, Regular Rhythm Abdomen: soft, tenderness (minimal ), other (PEG tube site with slight bruising. ) Extremities: no edema Skin: warm, dry, intact Wound/Incisions: no drainage. No: erythema Consult PN Assessment/Plan Procedures: Procedures ASSAY OF CK (CPK) (09/11/15) ASSAY OF LACTIC ACID (02/12/16) ASSAY OF LIPASE (06/18/16) ASSAY OF MAGNESIUM (09/11/15) ASSAY OF NATRIURETIC PEPTIDE (02/12/16) ASSAY OF PHOSPHORUS (09/11/15) ASSAY OF SERUM POTASSIUM (09/11/15) ASSAY OF TROPONIN QUANT (06/18/16) ASSAY THYROID STIM HORMONE (02/12/16) BLOOD CULTURE FOR BACTERIA (02/12/16) BLOOD GASES ANY COMBINATION (02/12/16) BLOOD TYPING SEROLOGIC ABO (09/11/15) BLOOD TYPING SEROLOGIC RH(D) (09/11/15) C-REACTIVE PROTEIN (09/11/15) CHEST X-RAY 1 VIEW FRONTAL (06/18/16) COMPLETE CBC AUTOMATED (09/11/15) COMPLETE CBC W/AUTO DIFF WBC (06/18/16) COMPREHEN METABOLIC PANEL (06/18/16) CT ABD & PELV W/CONTRAST (01/11/16) CT ANGIOGRAPHY CHEST (02/20/15) CT HEAD/BRAIN W/O DYE (02/12/16) ELECTROCARDIOGRAM TRACING (06/18/16) EMERGENCY DEPT VISIT (06/18/16) EMERGENCY DEPT VISIT (02/11/14) FIBRIN DEGRADATION QUANT (02/12/16) GAIT TRAINING THERAPY (09/11/15) GLYCOSYLATED HEMOGLOBIN TEST (09/11/15) HELICOBACTER PYLORI ANTIBODY (06/18/16) HYDRATE IV INFUSION ADD-ON (01/11/16) HYDRATION IV INFUSION INIT (01/11/16) METABOLIC PANEL TOTAL CA (09/11/15) OCCULT BLD FECES 1-3 TESTS (09/11/15) OT EVALUATION (09/11/15) PROTHROMBIN TIME (02/12/16) PT EVALUATION (09/11/15) ROUTINE VENIPUNCTURE (06/18/16) TEST FOR ACETONE/KETONES (09/11/15) THER/PROPH/DIAG INJ IV PUSH (06/18/16) THER/PROPH/DIAG INJ SC/IM (02/20/15) THERAPEUTIC ACTIVITIES (09/11/15) THERAPEUTIC EXERCISES (09/11/15) THROMBOPLASTIN TIME PARTIAL (02/12/16) TX/PRO/DX INJ NEW DRUG ADDON (06/18/16) URINALYSIS AUTO W/SCOPE (02/12/16) WITHDRAWAL OF ARTERIAL BLOOD (02/12/16) X-RAY EXAM OF FEMUR 2/> (09/11/15) X-RAY EXAM OF PELVIS (02/12/16) (1) Hiatal hernia with obstruction but no gangrene SNOMED Code(s): 83178973 Code(s): K44.0 - DIAPHRAGMATIC HERNIA WITH OBSTRUCTION, WITHOUT GANGRENE Current Visit: Yes Problem List Initiated/Reviewed/Updated: Yes My Orders last 24 hours: My Active Orders 10/31/16 08:35 PEG Tube Management [Percutaneous Endoscopic Gastostomy Tube] [OM.PC] BID 11/01/16 08:35 PEG Tube Management [Percutaneous Endoscopic Gastostomy Tube] [OM.PC] BID Plan: 81 yo woman s/p laparoscopic decompression of acutely incarcerated hiatal hernia with PEG tube gastropexy on October 27 PEG tube currently clamped. Poor PO intake currently. The PEG tube can be used for feeds or medications if necessary, although family prefers not. No obvious complications from surgery. May try to loosen up PEG tube flange a little tomorrow. Will continue to follow along while patient is admitted.
[2016-11-01] MEDS: Potassium Chloride 20 MEQ Tab.ER PO SCH ×3 (09:01→23:18)
[2016-11-01] MEDS: Levothyroxine 50 MCG Tab PO SCH (09:01)
[2016-11-01] MEDS ORDERED: LORazepam 2 MG/ML MDV IVPUSH PRN (09:41)
[2016-11-01] MEDS ORDERED: traMADol 50 MG Tab PO PRN (14:17)
--- NOTE | 2016-11-01 18:14 | PCM.PN ---
- General Info Date of Service: 11/01/16 Subjective Update: Patient is not responding. She is drowsy and sleepy. She does not report any complaints. Does not appear to be in distress. She is grunting to some questions. Review of systems cannot be conducted. - Patient Data Vitals - most recent: Last Vital Signs Temp 37.3 C 11/01/16 15:56 Pulse 89 11/01/16 15:56 Resp 18 11/01/16 15:56 BP 149/90 H 11/01/16 15:56 Pulse Ox 100 11/01/16 15:56 Weight - most recent: 70.08 kg I&O - last 24 hours: Intake & Output 11/01/16 11/01/16 11/01/16 06:59 14:59 22:59 Intake Total 2166 810 100 Output Total 1250 Balance 916 810 100 Lab Results last 24 hrs: Laboratory Results - last 24 hr 11/01/16 Range/Units 05:15 Magnesium 1.9 (1.8-2.4) mg/dl Med Orders - Current: Current Medications Dextrose/Water (Dextrose 50% In Water) 50 ml IVPUSH ASDIRECTED PRN PRN Reason: Hypoglycemia Donepezil HCl (Aricept) 5 mg PO BEDTIME [facility] Last Admin: 10/31/16 20:15 Dose: 5 mg Haloperidol Lactate (Haldol) 2 mg IVPUSH Q8H PRN PRN Reason: restlessness Hydromorphone HCl (Dilaudid) 0.5 mg IVPUSH Q4H PRN PRN Reason: Pain Last Admin: 11/01/16 09:00 Dose: 0.5 mg Levothyroxine Sodium (Synthroid) 50 mcg PO DAILY [facility] Last Admin: 11/01/16 09:01 Dose: 50 mcg Oxybutynin Chloride (Oxybutynin Er) 5 mg PO DAILY [facility] Last Admin: 10/31/16 09:43 Dose: Not Given Potassium Chloride (Klor-Con M20) 40 meq PO BID [facility] Last Admin: 11/01/16 09:01 Dose: 40 meq Quetiapine Fumarate (Seroquel) 50 mg PO BEDTIME [facility] Last Admin: 10/31/16 20:15 Dose: 50 mg Tramadol HCl (Ultram) 50 mg PO BID PRN PRN Reason: Pain Discontinued Medications Benzocaine/Menthol (Cepacol Sore Throat) 1 lozenge MUCMEM Q1H PRN PRN Reason: Sore Throat Bupivacaine HCl/Epinephrine Bitart (Marcaine 0.5%/Epinephrine 1:200,000) Confirm Administered Dose 50 ml .ROUTE .STK-MED ONE Stop: 10/27/16 14:56 Last Admin: 10/27/16 15:47 Dose: 20 ml Ertapenem (Invanz) Confirm Administered Dose 1 gm .ROUTE .STK-MED ONE Stop: 10/27/16 15:57 Fentanyl (Sublimaze) Confirm Administered Dose 100 mcg .ROUTE .STK-MED ONE Stop: 10/27/16 15:03 Fentanyl (Sublimaze) 25 mcg IVPUSH Q1H PRN PRN Reason: Pain (severe 7-10) Stop: 10/28/16 17:11 Last Admin: 10/28/16 12:51 Dose: 25 mcg Haloperidol Lactate (Haldol) 2 mg IVPUSH Q8H PRN PRN Reason: Agitation Last Admin: 10/29/16 10:05 Dose: 2 mg Haloperidol Lactate (Haldol) 3 mg IVPUSH ONETIME ONE Stop: 10/29/16 12:50 Last Admin: 10/29/16 13:04 Dose: 3 mg Hydromorphone HCl (Dilaudid) Confirm Administered Dose 1 mg .ROUTE .STK-MED ONE Stop: 10/27/16 15:57 Hydromorphone HCl (Dilaudid) 1 mg IVPUSH ONETIME ONE Stop: 10/30/16 08:05 Last Admin: 10/30/16 08:18 Dose: 1 mg Sodium Chloride (Normal Saline) 1,000 mls @ 125 mls/hr IV ASDIRECTED [facility] Last Admin: 10/27/16 10:47 Dose: 125 mls/hr Lidocaine HCl (Xylocaine-Mpf 1%) Confirm Administered Dose 6 mls @ as directed .ROUTE .STK-MED ONE Stop: 10/27/16 15:57 Lactated Ringer's (Ringers, Lactated) 1,000 mls @ 100 mls/hr IV ASDIRECTED [facility] Last Admin: 10/28/16 04:04 Dose: 100 mls/hr Potassium Chloride 40 meq/ (Lactated Ringer's) 1,020 mls @ 102 mls/hr IV ASDIRECTED [facility] Stop: 10/29/16 01:00 Last Admin: 10/28/16 14:35 Dose: 102 mls/hr Potassium Cl/Dextrose/Lact Ringer's (D5 Lr With 20 Meq Kcl) 1,000 mls @ 100 mls /hr IV ASDIRECTED [facility] Last Admin: 11/01/16 14:02 Dose: 100 mls/hr Magnesium Sulfate 2 gm/ Premix 50 mls @ 25 mls/hr IV ONETIME ONE Stop: 10/30/16 12:03 Last Admin: 10/30/16 10:34 Dose: 25 mls/hr Insulin Aspart (Novolog) 0 unit SUBCUT Q6H [facility] PRN Reason: Protocol Last Admin: 10/31/16 13:24 Dose: Not Given Iopamidol (Isovue-300 (61%)) 100 ml IVPUSH ONETIME ONE Stop: 10/27/16 11:58 Last Admin: 10/27/16 12:03 Dose: 100 ml Lidocaine HCl (Xylocaine 1%) Confirm Administered Dose 50 ml .ROUTE .STK-MED ONE Stop: 10/27/16 14:56 Last Admin: 10/27/16 15:47 Dose: 20 ml Lorazepam (Ativan) 0.5 mg IVPUSH Q8H PRN PRN Reason: Agitation Last Admin: 10/29/16 23:47 Dose: 0.5 mg Lorazepam (Ativan) 1 mg IVPUSH ONETIME ONE Stop: 10/29/16 12:50 Last Admin: 10/29/16 13:04 Dose: 1 mg Lorazepam (Ativan) 0.5 mg IM Q8H PRN PRN Reason: restlessness Last Admin: 10/31/16 23:18 Dose: 0.5 mg Lorazepam (Ativan) 0.5 mg IVPUSH Q8H PRN PRN Reason: restlessnes Metoclopramide HCl (Reglan) 10 mg IVPUSH ONETIME ONE Stop: 10/27/16 13:39 Last Admin: 10/27/16 13:52 Dose: 10 mg Morphine Sulfate (Morphine 10 Mg/0.5 Ml Oral Syringe) 2.5 mg PO Q6H PRN PRN Reason: Pain Last Admin: 11/01/16 06:52 Dose: 2.5 mg Naloxone HCl (Narcan) Confirm Administered Dose 0.4 mg .ROUTE .STK-MED ONE Stop: 10/27/16 16:57 Ondansetron HCl (Zofran) 4 mg IVPUSH ONETIME ONE Stop: 10/27/16 10:32 Last Admin: 10/27/16 10:47 Dose: 4 mg Ondansetron HCl (Zofran) 4 mg IVPUSH Q6H PRN PRN Reason: Nausea/Vomiting Pantoprazole Sodium (Protonix Iv) 40 mg IVPUSH DAILY [facility] Last Admin: 10/29/16 10:05 Dose: 40 mg Propofol (Diprivan 20 Ml) Confirm Administered Dose 200 mg .ROUTE .STK-MED ONE Stop: 10/27/16 15:03 Quetiapine Fumarate (Seroquel) 50 mg PO ONETIME ONE Stop: 10/29/16 11:45 Last Admin: 10/29/16 12:21 Dose: 50 mg Sodium Chloride (Saline Flush) 10 ml FLUSH ASDIRECTED PRN PRN Reason: Keep Vein Open Last Admin: 10/27/16 10:50 Dose: 10 ml Sodium Chloride (Saline Flush) 10 ml FLUSH ONETIME PRN PRN Reason: IV FLUSH Last Admin: 10/27/16 12:03 Dose: 10 ml Succinylcholine Chloride (Succinylcholine In Ns Pf) Confirm Administered Dose 100 mg .ROUTE .STK-MED ONE Stop: 10/27/16 15:57 - Exam Physical Findings Comments:: Vitals: as above General: Drowsy and not verbally responding. NAD Psych: calm and cooperative HEENT: normocephalic, atraumatic. EOMI Cardiac: Normal S1, S2. regular rate. No murmurs rubs, or gallops. No JVD noted. Lungs: Poor lung exam, but no obvious wheezing or rales auscultated. Abd: Soft, NT/ND. No HSM noted. Skin: no new visible rashes or purpura noted Neuro: CN grossly intact. Strength intact and adequate bilaterally. - Problem List & Annotations (1) Hiatal hernia with obstruction but no gangrene SNOMED Code(s): 07600563 Code(s): K44.0 - DIAPHRAGMATIC HERNIA WITH OBSTRUCTION, WITHOUT GANGRENE Status: Acute Current Visit: Yes - Problem List Review Problem List Initiated/Reviewed/Updated: Yes - My Orders Last 24 Hours: My Active Orders 11/01/16 14:17 Consult to Dietary [Consult to Hop Picker] [CONS] Routine traMADol [Ultram] 50 mg PO BID PRN - Plan Plan:: Acute encephalopathy - likely drowsiness due to narcotic use for her pain. D/C IV narcotics, except tramadol as needed which she usually tolerates well in outpatient setting. Incarcerated hiatal hernia with gastric outlet obstruction, status post laparoscopic reduction of incarcerated hiatal hernia; gastropexy with PEG tube placement. Stop IV fluids and Consult nutrition. Chronic medical conditions: HTN Hypothyroidism Hx of positive H Pylori Alzheimer Dementia Diverticulitis NEEDS [facility]CT [facility] REG[facility] HE[facility] FOR PEG. LOS>96 hours. Pending placement back in [facility] or SNF.
[2016-11-01] MEDS: QUEtiapine 25 MG Tab PO SCH ×2 (19:42→23:18)
[2016-11-01] MEDS: Donepezil 10 MG Tab PO SCH ×2 (19:42→23:18)
[2016-11-02] MEDS: HYDROmorphone 0.5 MG/0.5 ML Syringe IVPUSH PRN (04:25)
[2016-11-02] MEDS: Potassium Chloride 20 MEQ Tab.ER PO SCH ×2 (08:17→20:35)
[2016-11-02] MEDS: Levothyroxine 50 MCG Tab PO SCH (08:18)
[2016-11-02] MEDS: traMADol 50 MG Tab PO SCH ×2 (08:18→20:37)
[2016-11-02] MEDS ORDERED: traMADol 50 MG Tab PO ONE (09:00)
--- NOTE | 2016-11-02 13:16 | PCM.PN ---
- General Info Date of Service: 11/02/16 Subjective Update: Unreliable ROS due to confusion. Pt appears comfortable. - Review of Systems General: Denies: Fever Pulmonary: Denies: shortness of breath Cardiovascular: Denies: Chest Pain, Palpitations - Patient Data Vitals - most recent: Last Vital Signs Temp 37.2 C 11/02/16 11:55 Pulse 93 11/02/16 11:55 Resp 17 11/02/16 11:55 BP 134/92 H 11/02/16 11:55 Pulse Ox 97 11/02/16 11:55 Weight - most recent: 68.629 kg I&O - last 24 hours: Intake & Output 11/01/16 11/02/16 11/02/16 22:59 06:59 14:59 Intake Total 1231 200 100 Output Total 600 Balance 1231 -400 100 Lab Results last 24 hrs: Laboratory Results - last 24 hr 11/02/16 Range/Units 05:45 Magnesium 1.8 (1.8-2.4) mg/dl Med Orders - Current: Current Medications Dextrose/Water (Dextrose 50% In Water) 50 ml IVPUSH ASDIRECTED PRN PRN Reason: Hypoglycemia Donepezil HCl (Aricept) 5 mg PO BEDTIME [facility] Last Admin: 11/01/16 23:18 Dose: Not Given Haloperidol Lactate (Haldol) 2 mg IVPUSH Q8H PRN PRN Reason: restlessness Hydromorphone HCl (Dilaudid) 0.5 mg IVPUSH Q4H PRN PRN Reason: Pain Last Admin: 11/02/16 04:25 Dose: 0.5 mg Levothyroxine Sodium (Synthroid) 50 mcg PO DAILY [facility] Last Admin: 11/02/16 08:18 Dose: 50 mcg Oxybutynin Chloride (Oxybutynin Er) 5 mg PO DAILY [facility] Last Admin: 10/31/16 09:43 Dose: Not Given Potassium Chloride (Klor-Con M20) 40 meq PO BID [facility] Last Admin: 11/02/16 08:17 Dose: 40 meq Quetiapine Fumarate (Seroquel) 50 mg PO BEDTIME [facility] Last Admin: 11/01/16 23:18 Dose: Not Given Tramadol HCl (Ultram) 50 mg PO Q6H PRN PRN Reason: Pain Tramadol HCl (Ultram) 50 mg PO BID [facility] Last Admin: 11/02/16 08:18 Dose: 50 mg Discontinued Medications Benzocaine/Menthol (Cepacol Sore Throat) 1 lozenge MUCMEM Q1H PRN PRN Reason: Sore Throat Bupivacaine HCl/Epinephrine Bitart (Marcaine 0.5%/Epinephrine 1:200,000) Confirm Administered Dose 50 ml .ROUTE .STK-MED ONE Stop: 10/27/16 14:56 Last Admin: 10/27/16 15:47 Dose: 20 ml Ertapenem (Invanz) Confirm Administered Dose 1 gm .ROUTE .STK-MED ONE Stop: 10/27/16 15:57 Fentanyl (Sublimaze) Confirm Administered Dose 100 mcg .ROUTE .STK-MED ONE Stop: 10/27/16 15:03 Fentanyl (Sublimaze) 25 mcg IVPUSH Q1H PRN PRN Reason: Pain (severe 7-10) Stop: 10/28/16 17:11 Last Admin: 10/28/16 12:51 Dose: 25 mcg Haloperidol Lactate (Haldol) 2 mg IVPUSH Q8H PRN PRN Reason: Agitation Last Admin: 10/29/16 10:05 Dose: 2 mg Haloperidol Lactate (Haldol) 3 mg IVPUSH ONETIME ONE Stop: 10/29/16 12:50 Last Admin: 10/29/16 13:04 Dose: 3 mg Hydromorphone HCl (Dilaudid) Confirm Administered Dose 1 mg .ROUTE .STK-MED ONE Stop: 10/27/16 15:57 Hydromorphone HCl (Dilaudid) 1 mg IVPUSH ONETIME ONE Stop: 10/30/16 08:05 Last Admin: 10/30/16 08:18 Dose: 1 mg Sodium Chloride (Normal Saline) 1,000 mls @ 125 mls/hr IV ASDIRECTED [facility] Last Admin: 10/27/16 10:47 Dose: 125 mls/hr Lidocaine HCl (Xylocaine-Mpf 1%) Confirm Administered Dose 6 mls @ as directed .ROUTE .STK-MED ONE Stop: 10/27/16 15:57 Lactated Ringer's (Ringers, Lactated) 1,000 mls @ 100 mls/hr IV ASDIRECTED [facility] Last Admin: 10/28/16 04:04 Dose: 100 mls/hr Potassium Chloride 40 meq/ (Lactated Ringer's) 1,020 mls @ 102 mls/hr IV ASDIRECTED [facility] Stop: 10/29/16 01:00 Last Admin: 10/28/16 14:35 Dose: 102 mls/hr Potassium Cl/Dextrose/Lact Ringer's (D5 Lr With 20 Meq Kcl) 1,000 mls @ 100 mls /hr IV ASDIRECTED [facility] Last Admin: 11/01/16 14:02 Dose: 100 mls/hr Magnesium Sulfate 2 gm/ Premix 50 mls @ 25 mls/hr IV ONETIME ONE Stop: 10/30/16 12:03 Last Admin: 10/30/16 10:34 Dose: 25 mls/hr Insulin Aspart (Novolog) 0 unit SUBCUT Q6H [facility] PRN Reason: Protocol Last Admin: 10/31/16 13:24 Dose: Not Given Iopamidol (Isovue-300 (61%)) 100 ml IVPUSH ONETIME ONE Stop: 10/27/16 11:58 Last Admin: 10/27/16 12:03 Dose: 100 ml Lidocaine HCl (Xylocaine 1%) Confirm Administered Dose 50 ml .ROUTE .STK-MED ONE Stop: 10/27/16 14:56 Last Admin: 10/27/16 15:47 Dose: 20 ml Lorazepam (Ativan) 0.5 mg IVPUSH Q8H PRN PRN Reason: Agitation Last Admin: 10/29/16 23:47 Dose: 0.5 mg Lorazepam (Ativan) 1 mg IVPUSH ONETIME ONE Stop: 10/29/16 12:50 Last Admin: 10/29/16 13:04 Dose: 1 mg Lorazepam (Ativan) 0.5 mg IM Q8H PRN PRN Reason: restlessness Last Admin: 10/31/16 23:18 Dose: 0.5 mg Lorazepam (Ativan) 0.5 mg IVPUSH Q8H PRN PRN Reason: restlessnes Metoclopramide HCl (Reglan) 10 mg IVPUSH ONETIME ONE Stop: 10/27/16 13:39 Last Admin: 10/27/16 13:52 Dose: 10 mg Morphine Sulfate (Morphine 10 Mg/0.5 Ml Oral Syringe) 2.5 mg PO Q6H PRN PRN Reason: Pain Last Admin: 11/01/16 06:52 Dose: 2.5 mg Naloxone HCl (Narcan) Confirm Administered Dose 0.4 mg .ROUTE .STK-MED ONE Stop: 10/27/16 16:57 Ondansetron HCl (Zofran) 4 mg IVPUSH ONETIME ONE Stop: 10/27/16 10:32 Last Admin: 10/27/16 10:47 Dose: 4 mg Ondansetron HCl (Zofran) 4 mg IVPUSH Q6H PRN PRN Reason: Nausea/Vomiting Pantoprazole Sodium (Protonix Iv) 40 mg IVPUSH DAILY [facility] Last Admin: 10/29/16 10:05 Dose: 40 mg Propofol (Diprivan 20 Ml) Confirm Administered Dose 200 mg .ROUTE .STK-MED ONE Stop: 10/27/16 15:03 Quetiapine Fumarate (Seroquel) 50 mg PO ONETIME ONE Stop: 10/29/16 11:45 Last Admin: 10/29/16 12:21 Dose: 50 mg Sodium Chloride (Saline Flush) 10 ml FLUSH ASDIRECTED PRN PRN Reason: Keep Vein Open Last Admin: 10/27/16 10:50 Dose: 10 ml Sodium Chloride (Saline Flush) 10 ml FLUSH ONETIME PRN PRN Reason: IV FLUSH Last Admin: 10/27/16 12:03 Dose: 10 ml Succinylcholine Chloride (Succinylcholine In Ns Pf) Confirm Administered Dose 100 mg .ROUTE .STK-MED ONE Stop: 10/27/16 15:57 Tramadol HCl (Ultram) 50 mg PO BID PRN PRN Reason: Pain Last Admin: 11/01/16 19:43 Dose: 50 mg Tramadol HCl (Ultram) 50 mg PO BID ONE Stop: 11/02/16 09:01 - Exam Physical Findings Comments:: Vitals: as above General: alert. not oriented. NAD Psych: calm and cooperative HEENT: normocephalic, atraumatic. EOMI Cardiac: Normal S1, S2. regular rate. No murmurs rubs, or gallops. No JVD noted. Lungs: poor inspiratory effort. CTAB. good air entry bilaterally. Abd: Soft, NT/ND. No HSM noted. Skin: no new visible rashes or purpura noted Neuro: CN grossly intact. Strength intact and adequate bilaterally. - Problem List & Annotations (1) Hiatal hernia with obstruction but no gangrene SNOMED Code(s): 60017722 Code(s): K44.0 - DIAPHRAGMATIC HERNIA WITH OBSTRUCTION, WITHOUT GANGRENE Status: Acute Current Visit: Yes - Problem List Review Problem List Initiated/Reviewed/Updated: Yes - My Orders Last 24 Hours: My Active Orders 11/01/16 14:17 Consult to Dietary [Consult to Cat And Dog Bather] [CONS] Routine - Plan Plan:: Acute encephalopathy, resolved - likely due to drowsiness due to narcotic use for her pain. D/C'ed IV narcotics, except tramadol as needed which she usually tolerates well in outpatient setting. Incarcerated hiatal hernia with gastric outlet obstruction, status post laparoscopic reduction of incarcerated hiatal hernia; gastropexy with PEG tube placement. Stopped IV fluids and Consulted nutrition. Chronic medical conditions: HTN Hypothyroidism Hx of positive H Pylori Alzheimer Dementia Diverticulitis LOS>96 hours, pending placement back in [facility] or [facility]. I expect the rehab stay to be less than 30 days.
[2016-11-02] MEDS: traMADol 50 MG Tab PO PRN (18:09)
[2016-11-02] MEDS: Donepezil 10 MG Tab PO SCH (20:35)
[2016-11-02] MEDS: QUEtiapine 25 MG Tab PO SCH (20:36)
--- NOTE | 2016-11-03 07:32 | PCM.CONSN ---
- General Info Date of Service: 11/03/16 - Review of Systems Systems Review Comment:: Patient more awake today than she has been previously. Was able to eat a few bites of food today with assistance of nursing. - Patient Data Vitals - most recent: Last Vital Signs Temp 98.6 F 11/03/16 03:05 Pulse 77 11/03/16 03:05 Resp 18 11/03/16 03:05 BP 118/78 11/03/16 03:05 Pulse Ox 97 11/03/16 03:05 Weight - most recent: 153 lb 4.8 oz I&O - last 24 hours: Intake & Output 11/02/16 11/03/16 11/03/16 22:59 06:59 14:59 Intake Total 260 140 Output Total 250 175 Balance 10 -35 Med Orders - Current: Current Medications Dextrose/Water (Dextrose 50% In Water) 50 ml IVPUSH ASDIRECTED PRN PRN Reason: Hypoglycemia Donepezil HCl (Aricept) 5 mg PO BEDTIME [facility] Last Admin: 11/02/16 20:35 Dose: 5 mg Haloperidol Lactate (Haldol) 2 mg IVPUSH Q8H PRN PRN Reason: restlessness Hydromorphone HCl (Dilaudid) 0.5 mg IVPUSH Q4H PRN PRN Reason: Pain Last Admin: 11/02/16 04:25 Dose: 0.5 mg Levothyroxine Sodium (Synthroid) 50 mcg PO DAILY [facility] Last Admin: 11/02/16 08:18 Dose: 50 mcg Oxybutynin Chloride (Oxybutynin Er) 5 mg PO DAILY [facility] Last Admin: 10/31/16 09:43 Dose: Not Given Potassium Chloride (Klor-Con M20) 40 meq PO BID [facility] Last Admin: 11/02/16 20:35 Dose: 40 meq Quetiapine Fumarate (Seroquel) 50 mg PO BEDTIME [facility] Last Admin: 11/02/16 20:36 Dose: 50 mg Tramadol HCl (Ultram) 50 mg PO Q6H PRN PRN Reason: Pain Last Admin: 11/02/16 18:09 Dose: 50 mg Tramadol HCl (Ultram) 50 mg PO BID [facility] Last Admin: 11/02/16 20:37 Dose: Not Given Discontinued Medications Benzocaine/Menthol (Cepacol Sore Throat) 1 lozenge MUCMEM Q1H PRN PRN Reason: Sore Throat Bupivacaine HCl/Epinephrine Bitart (Marcaine 0.5%/Epinephrine 1:200,000) Confirm Administered Dose 50 ml .ROUTE .STK-MED ONE Stop: 10/27/16 14:56 Last Admin: 10/27/16 15:47 Dose: 20 ml Ertapenem (Invanz) Confirm Administered Dose 1 gm .ROUTE .STK-MED ONE Stop: 10/27/16 15:57 Fentanyl (Sublimaze) Confirm Administered Dose 100 mcg .ROUTE .[facility]-MED ONE Stop: 10/27/16 15:03 Fentanyl (Sublimaze) 25 mcg IVPUSH Q1H PRN PRN Reason: Pain (severe 7-10) Stop: 10/28/16 17:11 Last Admin: 10/28/16 12:51 Dose: 25 mcg Haloperidol Lactate (Haldol) 2 mg IVPUSH Q8H PRN PRN Reason: Agitation Last Admin: 10/29/16 10:05 Dose: 2 mg Haloperidol Lactate (Haldol) 3 mg IVPUSH ONETIME ONE Stop: 10/29/16 12:50 Last Admin: 10/29/16 13:04 Dose: 3 mg Hydromorphone HCl (Dilaudid) Confirm Administered Dose 1 mg .ROUTE .[facility]-MED ONE Stop: 10/27/16 15:57 Hydromorphone HCl (Dilaudid) 1 mg IVPUSH ONETIME ONE Stop: 10/30/16 08:05 Last Admin: 10/30/16 08:18 Dose: 1 mg Sodium Chloride (Normal Saline) 1,000 mls @ 125 mls/hr IV ASDIRECTED [facility] Last Admin: 10/27/16 10:47 Dose: 125 mls/hr Lidocaine HCl (Xylocaine-Mpf 1%) Confirm Administered Dose 6 mls @ as directed .ROUTE .STK-MED ONE Stop: 10/27/16 15:57 Lactated Ringer's (Ringers, Lactated) 1,000 mls @ 100 mls/hr IV ASDIRECTED [facility] Last Admin: 10/28/16 04:04 Dose: 100 mls/hr Potassium Chloride 40 meq/ (Lactated Ringer's) 1,020 mls @ 102 mls/hr IV ASDIRECTED [facility] Stop: 10/29/16 01:00 Last Admin: 10/28/16 14:35 Dose: 102 mls/hr Potassium Cl/Dextrose/Lact Ringer's (D5 Lr With 20 Meq Kcl) 1,000 mls @ 100 mls /hr IV ASDIRECTED [facility] Last Admin: 11/01/16 14:02 Dose: 100 mls/hr Magnesium Sulfate 2 gm/ Premix 50 mls @ 25 mls/hr IV ONETIME ONE Stop: 10/30/16 12:03 Last Admin: 10/30/16 10:34 Dose: 25 mls/hr Insulin Aspart (Novolog) 0 unit SUBCUT Q6H [facility] PRN Reason: Protocol Last Admin: 10/31/16 13:24 Dose: Not Given Iopamidol (Isovue-300 (61%)) 100 ml IVPUSH ONETIME ONE Stop: 10/27/16 11:58 Last Admin: 10/27/16 12:03 Dose: 100 ml Lidocaine HCl (Xylocaine 1%) Confirm Administered Dose 50 ml .ROUTE .STK-MED ONE Stop: 10/27/16 14:56 Last Admin: 10/27/16 15:47 Dose: 20 ml Lorazepam (Ativan) 0.5 mg IVPUSH Q8H PRN PRN Reason: Agitation Last Admin: 10/29/16 23:47 Dose: 0.5 mg Lorazepam (Ativan) 1 mg IVPUSH ONETIME ONE Stop: 10/29/16 12:50 Last Admin: 10/29/16 13:04 Dose: 1 mg Lorazepam (Ativan) 0.5 mg IM Q8H PRN PRN Reason: restlessness Last Admin: 10/31/16 23:18 Dose: 0.5 mg Lorazepam (Ativan) 0.5 mg IVPUSH Q8H PRN PRN Reason: restlessnes Metoclopramide HCl (Reglan) 10 mg IVPUSH ONETIME ONE Stop: 10/27/16 13:39 Last Admin: 10/27/16 13:52 Dose: 10 mg Morphine Sulfate (Morphine 10 Mg/0.5 Ml Oral Syringe) 2.5 mg PO Q6H PRN PRN Reason: Pain Last Admin: 11/01/16 06:52 Dose: 2.5 mg Naloxone HCl (Narcan) Confirm Administered Dose 0.4 mg .ROUTE .STK-MED ONE Stop: 10/27/16 16:57 Ondansetron HCl (Zofran) 4 mg IVPUSH ONETIME ONE Stop: 10/27/16 10:32 Last Admin: 10/27/16 10:47 Dose: 4 mg Ondansetron HCl (Zofran) 4 mg IVPUSH Q6H PRN PRN Reason: Nausea/Vomiting Pantoprazole Sodium (Protonix Iv) 40 mg IVPUSH DAILY [facility] Last Admin: 10/29/16 10:05 Dose: 40 mg Propofol (Diprivan 20 Ml) Confirm Administered Dose 200 mg .ROUTE .STK-MED ONE Stop: 10/27/16 15:03 Quetiapine Fumarate (Seroquel) 50 mg PO ONETIME ONE Stop: 10/29/16 11:45 Last Admin: 10/29/16 12:21 Dose: 50 mg Sodium Chloride (Saline Flush) 10 ml FLUSH ASDIRECTED PRN PRN Reason: Keep Vein Open Last Admin: 10/27/16 10:50 Dose: 10 ml Sodium Chloride (Saline Flush) 10 ml FLUSH ONETIME PRN PRN Reason: IV FLUSH Last Admin: 10/27/16 12:03 Dose: 10 ml Succinylcholine Chloride (Succinylcholine In Ns Pf) Confirm Administered Dose 100 mg .ROUTE .STK-MED ONE Stop: 10/27/16 15:57 Tramadol HCl (Ultram) 50 mg PO BID PRN PRN Reason: Pain Last Admin: 11/01/16 19:43 Dose: 50 mg Tramadol HCl (Ultram) 50 mg PO BID ONE Stop: 11/02/16 09:01 - Exam General: alert, no acute distress Lungs: Normal respiratory effort Cardiovascular: Regular Rate Abdomen: soft, no tenderness, no distension, other (The sutures on the flange were taken out and the flange loosened to about 8 cm, no longer causing tension on the flange) Extremities: no edema Skin: warm, dry, intact Neurological: no new focal deficit Consult PN Assessment/Plan Procedures: Procedures ASSAY OF CK (CPK) (09/11/15) ASSAY OF LACTIC ACID (02/12/16) ASSAY OF LIPASE (06/18/16) ASSAY OF MAGNESIUM (09/11/15) ASSAY OF NATRIURETIC PEPTIDE (02/12/16) ASSAY OF PHOSPHORUS (09/11/15) ASSAY OF SERUM POTASSIUM (09/11/15) ASSAY OF TROPONIN QUANT (06/18/16) ASSAY THYROID STIM HORMONE (02/12/16) BLOOD CULTURE FOR BACTERIA (02/12/16) BLOOD GASES ANY COMBINATION (02/12/16) BLOOD TYPING SEROLOGIC ABO (09/11/15) BLOOD TYPING SEROLOGIC RH(D) (09/11/15) C-REACTIVE PROTEIN (09/11/15) CHEST X-RAY 1 VIEW FRONTAL (06/18/16) COMPLETE CBC AUTOMATED (09/11/15) COMPLETE CBC W/AUTO DIFF WBC (06/18/16) COMPREHEN METABOLIC PANEL (06/18/16) CT ABD & PELV W/CONTRAST (01/11/16) CT ANGIOGRAPHY CHEST (02/20/15) CT HEAD/BRAIN W/O DYE (02/12/16) ELECTROCARDIOGRAM TRACING (06/18/16) EMERGENCY DEPT VISIT (06/18/16) EMERGENCY DEPT VISIT (02/11/14) FIBRIN DEGRADATION QUANT (02/12/16) GAIT TRAINING THERAPY (09/11/15) GLYCOSYLATED HEMOGLOBIN TEST (09/11/15) HELICOBACTER PYLORI ANTIBODY (06/18/16) HYDRATE IV INFUSION ADD-ON (01/11/16) HYDRATION IV INFUSION INIT (01/11/16) METABOLIC PANEL TOTAL CA (09/11/15) OCCULT BLD FECES 1-3 TESTS (09/11/15) OT EVALUATION (09/11/15) PROTHROMBIN TIME (02/12/16) PT EVALUATION (09/11/15) ROUTINE VENIPUNCTURE (06/18/16) TEST FOR ACETONE/KETONES (09/11/15) THER/PROPH/DIAG INJ IV PUSH (06/18/16) THER/PROPH/DIAG INJ SC/IM (02/20/15) THERAPEUTIC ACTIVITIES (09/11/15) THERAPEUTIC EXERCISES (09/11/15) THROMBOPLASTIN TIME PARTIAL (02/12/16) TX/PRO/DX INJ NEW DRUG ADDON (06/18/16) URINALYSIS AUTO W/SCOPE (02/12/16) WITHDRAWAL OF ARTERIAL BLOOD (02/12/16) X-RAY EXAM OF FEMUR 2/> (09/11/15) X-RAY EXAM OF PELVIS (02/12/16) (1) Hiatal hernia with obstruction but no gangrene SNOMED Code(s): 86166863 Code(s): K44.0 - DIAPHRAGMATIC HERNIA WITH OBSTRUCTION, WITHOUT GANGRENE Current Visit: Yes Problem List Initiated/Reviewed/Updated: Yes My Orders last 24 hours: My Active Orders 11/02/16 08:35 PEG Tube Management [Percutaneous Endoscopic Gastostomy Tube] [OM.PC] BID 11/03/16 08:35 PEG Tube Management [Percutaneous Endoscopic Gastostomy Tube] [OM.PC] BID Plan: 81 yo woman s/p laparoscopic decompression of acutely incarcerated hiatal hernia with PEG tube gastropexy on October 27 PEG tube currently clamped. Poor PO intake currently. Patient more alert today than for the past 4 days. The PEG tube can be used for feeds or medications if necessary, although family prefers not. No obvious complications from surgery. PEG tube flange loosened and sutures removed to try to improve patient's comfort. Will continue to follow along while patient is admitted. Discussed with Janeen Ferrer, PAC
[2016-11-03] MEDS: Potassium Chloride 20 MEQ Tab.ER PO SCH ×2 (08:49→20:44)
[2016-11-03] MEDS: traMADol 50 MG Tab PO SCH ×2 (08:50→20:42)
[2016-11-03] MEDS: Levothyroxine 50 MCG Tab PO SCH (08:50)
--- NOTE | 2016-11-03 16:59 | PCM.PN ---
- General Info Date of Service: 11/03/16 Subjective Update: Pt is not answering most questions and is sleeping this am. - Review of Systems General: Denies: Fever Pulmonary: Denies: shortness of breath Cardiovascular: Denies: Chest Pain Gastrointestinal: Reports: Abdominal pain - Patient Data Vitals - most recent: Last Vital Signs Temp 37.0 C 11/03/16 16:20 Pulse 80 11/03/16 16:20 Resp 12 11/03/16 16:20 BP 118/73 11/03/16 16:20 Pulse Ox 96 11/03/16 16:20 Weight - most recent: 69.536 kg I&O - last 24 hours: Intake & Output 11/03/16 11/03/16 11/03/16 06:59 14:59 22:59 Intake Total 633 634 1299 Output Total 175 600 Balance -35 100 690 Med Orders - Current: Current Medications Dextrose/Water (Dextrose 50% In Water) 50 ml IVPUSH ASDIRECTED PRN PRN Reason: Hypoglycemia Donepezil HCl (Aricept) 5 mg PO BEDTIME [facility] Last Admin: 11/02/16 20:35 Dose: 5 mg Haloperidol Lactate (Haldol) 2 mg IVPUSH Q8H PRN PRN Reason: restlessness Levothyroxine Sodium (Synthroid) 50 mcg PO DAILY [facility] Last Admin: 11/03/16 08:50 Dose: 50 mcg Oxybutynin Chloride (Oxybutynin Er) 5 mg PO DAILY [facility] Last Admin: 10/31/16 09:43 Dose: Not Given Potassium Chloride (Klor-Con M20) 40 meq PO BID [facility] Last Admin: 11/03/16 08:49 Dose: 40 meq Quetiapine Fumarate (Seroquel) 50 mg PO BEDTIME [facility] Last Admin: 11/02/16 20:36 Dose: 50 mg Tramadol HCl (Ultram) 50 mg PO Q6H PRN PRN Reason: Pain Last Admin: 11/02/16 18:09 Dose: 50 mg Tramadol HCl (Ultram) 50 mg PO BID [facility] Last Admin: 11/03/16 08:50 Dose: 50 mg Discontinued Medications Benzocaine/Menthol (Cepacol Sore Throat) 1 lozenge MUCMEM Q1H PRN PRN Reason: Sore Throat Bupivacaine HCl/Epinephrine Bitart (Marcaine 0.5%/Epinephrine 1:200,000) Confirm Administered Dose 50 ml .ROUTE .STK-MED ONE Stop: 10/27/16 14:56 Last Admin: 10/27/16 15:47 Dose: 20 ml Ertapenem (Invanz) Confirm Administered Dose 1 gm .ROUTE .STK-MED ONE Stop: 10/27/16 15:57 Fentanyl (Sublimaze) Confirm Administered Dose 100 mcg .ROUTE .STK-MED ONE Stop: 10/27/16 15:03 Fentanyl (Sublimaze) 25 mcg IVPUSH Q1H PRN PRN Reason: Pain (severe 7-10) Stop: 10/28/16 17:11 Last Admin: 10/28/16 12:51 Dose: 25 mcg Haloperidol Lactate (Haldol) 2 mg IVPUSH Q8H PRN PRN Reason: Agitation Last Admin: 10/29/16 10:05 Dose: 2 mg Haloperidol Lactate (Haldol) 3 mg IVPUSH ONETIME ONE Stop: 10/29/16 12:50 Last Admin: 10/29/16 13:04 Dose: 3 mg Hydromorphone HCl (Dilaudid) Confirm Administered Dose 1 mg .ROUTE .STK-MED ONE Stop: 10/27/16 15:57 Hydromorphone HCl (Dilaudid) 1 mg IVPUSH ONETIME ONE Stop: 10/30/16 08:05 Last Admin: 10/30/16 08:18 Dose: 1 mg Hydromorphone HCl (Dilaudid) 0.5 mg IVPUSH Q4H PRN PRN Reason: Pain Last Admin: 11/02/16 04:25 Dose: 0.5 mg Sodium Chloride (Normal Saline) 1,000 mls @ 125 mls/hr IV ASDIRECTED [facility] Last Admin: 10/27/16 10:47 Dose: 125 mls/hr Lidocaine HCl (Xylocaine-Mpf 1%) Confirm Administered Dose 6 mls @ as directed .ROUTE .STK-MED ONE Stop: 10/27/16 15:57 Lactated Ringer's (Ringers, Lactated) 1,000 mls @ 100 mls/hr IV ASDIRECTED [facility] Last Admin: 10/28/16 04:04 Dose: 100 mls/hr Potassium Chloride 40 meq/ (Lactated Ringer's) 1,020 mls @ 102 mls/hr IV ASDIRECTED [facility] Stop: 10/29/16 01:00 Last Admin: 10/28/16 14:35 Dose: 102 mls/hr Potassium Cl/Dextrose/Lact Ringer's (D5 Lr With 20 Meq Kcl) 1,000 mls @ 100 mls /hr IV ASDIRECTED [facility] Last Admin: 11/01/16 14:02 Dose: 100 mls/hr Magnesium Sulfate 2 gm/ Premix 50 mls @ 25 mls/hr IV ONETIME ONE Stop: 10/30/16 12:03 Last Admin: 10/30/16 10:34 Dose: 25 mls/hr Insulin Aspart (Novolog) 0 unit SUBCUT Q6H [facility] PRN Reason: Protocol Last Admin: 10/31/16 13:24 Dose: Not Given Iopamidol (Isovue-300 (61%)) 100 ml IVPUSH ONETIME ONE Stop: 10/27/16 11:58 Last Admin: 10/27/16 12:03 Dose: 100 ml Lidocaine HCl (Xylocaine 1%) Confirm Administered Dose 50 ml .ROUTE .STK-MED ONE Stop: 10/27/16 14:56 Last Admin: 10/27/16 15:47 Dose: 20 ml Lorazepam (Ativan) 0.5 mg IVPUSH Q8H PRN PRN Reason: Agitation Last Admin: 10/29/16 23:47 Dose: 0.5 mg Lorazepam (Ativan) 1 mg IVPUSH ONETIME ONE Stop: 10/29/16 12:50 Last Admin: 10/29/16 13:04 Dose: 1 mg Lorazepam (Ativan) 0.5 mg IM Q8H PRN PRN Reason: restlessness Last Admin: 10/31/16 23:18 Dose: 0.5 mg Lorazepam (Ativan) 0.5 mg IVPUSH Q8H PRN PRN Reason: restlessnes Metoclopramide HCl (Reglan) 10 mg IVPUSH ONETIME ONE Stop: 10/27/16 13:39 Last Admin: 10/27/16 13:52 Dose: 10 mg Morphine Sulfate (Morphine 10 Mg/0.5 Ml Oral Syringe) 2.5 mg PO Q6H PRN PRN Reason: Pain Last Admin: 11/01/16 06:52 Dose: 2.5 mg Naloxone HCl (Narcan) Confirm Administered Dose 0.4 mg .ROUTE .STK-MED ONE Stop: 10/27/16 16:57 Ondansetron HCl (Zofran) 4 mg IVPUSH ONETIME ONE Stop: 10/27/16 10:32 Last Admin: 10/27/16 10:47 Dose: 4 mg Ondansetron HCl (Zofran) 4 mg IVPUSH Q6H PRN PRN Reason: Nausea/Vomiting Pantoprazole Sodium (Protonix Iv) 40 mg IVPUSH DAILY [facility] Last Admin: 10/29/16 10:05 Dose: 40 mg Propofol (Diprivan 20 Ml) Confirm Administered Dose 200 mg .ROUTE .STK-MED ONE Stop: 10/27/16 15:03 Quetiapine Fumarate (Seroquel) 50 mg PO ONETIME ONE Stop: 10/29/16 11:45 Last Admin: 10/29/16 12:21 Dose: 50 mg Sodium Chloride (Saline Flush) 10 ml FLUSH ASDIRECTED PRN PRN Reason: Keep Vein Open Last Admin: 10/27/16 10:50 Dose: 10 ml Sodium Chloride (Saline Flush) 10 ml FLUSH ONETIME PRN PRN Reason: IV FLUSH Last Admin: 10/27/16 12:03 Dose: 10 ml Succinylcholine Chloride (Succinylcholine In Ns Pf) Confirm Administered Dose 100 mg .ROUTE .STK-MED ONE Stop: 10/27/16 15:57 Tramadol HCl (Ultram) 50 mg PO BID PRN PRN Reason: Pain Last Admin: 11/01/16 19:43 Dose: 50 mg Tramadol HCl (Ultram) 50 mg PO BID ONE Stop: 11/02/16 09:01 - Exam Physical Findings Comments:: Vitals: as above General: drowsy, but arousable. not oriented. NAD Psych: calm and cooperative HEENT: normocephalic, atraumatic. EOMI Cardiac: Normal S1, S2. regular rate. No murmurs rubs, or gallops. No JVD noted. Lungs: poor inspiratory effort. CTAB. good air entry bilaterally. Abd: Soft, ND. No HSM noted. Some tenderness in the abdomen without guarding or rigidity. Skin: no new visible rashes or purpura noted Neuro: CN grossly intact. drowsy, but arousable. - Problem List & Annotations (1) Hiatal hernia with obstruction but no gangrene SNOMED Code(s): 38756196 Code(s): K44.0 - DIAPHRAGMATIC HERNIA WITH OBSTRUCTION, WITHOUT GANGRENE Status: Acute Current Visit: Yes - Problem List Review Problem List Initiated/Reviewed/Updated: Yes - Plan Plan:: Acute encephalopathy, resolved - likely due to drowsiness due to narcotic use for her pain. D/C'ed IV narcotics, except tramadol as needed which she usually tolerates well in outpatient setting. Incarcerated hiatal hernia with gastric outlet obstruction, status post laparoscopic reduction of incarcerated hiatal hernia; gastropexy with PEG tube placement. Stopped IV fluids and Consulted nutrition. Chronic medical conditions: HTN Hypothyroidism Hx of positive H Pylori Alzheimer Dementia Diverticulitis LOS>96 hours, pending placement back in SNF. I expect the rehab stay to be less than 30 days.
--- NOTE | 2016-11-03 18:16 | CR ---
Abdomen: Supine and upright views of the abdomen were obtained. Gastrostomy tube is noted. Slightly prominent gas within small bowel and colon are are seen. Air-fluid levels are noted. Hiatal hernia is noted. No free air is seen. Surgical clips are seen from prior cholecystectomy. Degenerative change is noted within the right hip. Impression: 1. Hiatal hernia. Gastrostomy tube. 2. Slightly prominent gas filled small bowel and colonic loops with air-fluid levels. Findings most likely represent ileus if patient has had recent abdominal surgery. Please correlate. 3. Other incidental findings. Diagnostic code #3
[2016-11-03] MEDS: QUEtiapine 25 MG Tab PO SCH (20:42)
[2016-11-03] MEDS: Donepezil 10 MG Tab PO SCH (20:42)
[2016-11-04] MEDS: traMADol 50 MG Tab PO SCH ×2 (08:38→20:17)
[2016-11-04] MEDS: Potassium Chloride 20 MEQ Tab.ER PO SCH ×2 (08:39→20:16)
[2016-11-04] MEDS: Oxybutynin 5 MG Tab.ER PO SCH (08:39)
[2016-11-04] MEDS: Levothyroxine 50 MCG Tab PO SCH (08:39)
[2016-11-04] MEDS: Famotidine 20 MG Tab PO SCH ×2 (08:39→20:17)
[2016-11-04] MEDS ORDERED: Haloperidol Lactate 5 MG/ML SDV IVPUSH STA ×2 (13:29→13:45)
--- NOTE | 2016-11-04 13:29 | PCM.PN ---
- General Info Date of Service: 11/04/16 Admission Dx/Problem (Free Text): Berna is seen this morning, by myself accompanied by Dr. Jennings. She is up to bathroom with staff, transferring well. She is ruminating and talking nonsensical. She appears comfortable, states "no" when asked if in pain. VSS. Functional Status: Reports: tolerating diet (eating better today), ambulating, urinating - Review of Systems Systems Review Comment:: ROS difficult to obtain due to end stage dementia; no acute distress - Patient Data Vitals - most recent: Last Vital Signs Temp 98.4 F 11/04/16 07:27 Pulse 64 11/04/16 07:27 Resp 12 11/04/16 07:27 BP 117/67 11/04/16 07:27 Pulse Ox 95 11/04/16 07:27 Weight - most recent: 150 lb 1.6 oz I&O - last 24 hours: Intake & Output 11/03/16 11/04/16 11/04/16 22:59 06:59 14:59 Intake Total 1290 75 120 Output Total 600 Balance 690 75 120 Lab Results last 24 hrs: Laboratory Results - last 24 hr 11/04/16 11/04/16 Range/Units 07:25 07:25 WBC 5.49 (3.98-10.04) K/mm3 RBC 4.63 (3.98-5.22) M/mm3 Hgb 13.6 (11.2-15.7) gm/L Hct 41.1 (34.1-44.9) % MCV 88.8 (79.4-94.8) fl MCH 29.4 (25.6-32.2) pg MCHC 33.1 (32.2-35.5) g/dl RDW Std Deviation 44.8 (36.4-46.3) fL Plt Count 358 (182-369) K/mm3 MPV 9.5 (9.4-12.3) fl Neut % (Auto) 54.4 (34.0-71.1) % Lymph % (Auto) 23.9 (19.3-51.7) % [place] % (Auto) 16.6 H (4.7-12.5) % Eos % (Auto) 4.0 (0.7-5.8) Baso % (Auto) 0.9 (0.1-1.2) % Neut # (Auto) 2.99 (1.56-6.13) K/mm3 Lymph # (Auto) 1.31 (1.18-3.74) K/mm3 [place] # (Auto) 0.91 H (0.24-0.36) K/mm3 Eos # (Auto) 0.22 (0.04-0.36) K/mm3 Baso # (Auto) 0.05 (0.01-0.08) K/mm3 Manual Slide Review Normal smear Sodium 137 (136-145) mEq/L Potassium 4.3 (3.5-5.1) mEq/L Chloride 103 (98-107) mEq/L Carbon Dioxide 24 (21-32) mEq/L Anion Gap 14.3 (5-15) BUN 12 (7-18) mg/dL Creatinine 1.0 (0.55-1.02) mg/dL Est Cr Clr Drug Dosing 35.49 mL/min Estimated GFR (MDRD) 53 (>60) mL/min BUN/Creatinine Ratio 12.0 L (14-18) Glucose 93 (83-115) mg/dL Calcium 9.3 (8.5-10.1) mg/dL Med Orders - Current: Current Medications Dextrose/Water (Dextrose 50% In Water) 50 ml IVPUSH ASDIRECTED PRN PRN Reason: Hypoglycemia Donepezil HCl (Aricept) 5 mg PO BEDTIME [facility] Last Admin: 11/03/16 20:42 Dose: 5 mg Famotidine (Pepcid) 20 mg PO BID [facility] Last Admin: 11/04/16 08:39 Dose: 20 mg Haloperidol Lactate (Haldol) 2 mg IVPUSH Q8H PRN PRN Reason: restlessness Levothyroxine Sodium (Synthroid) 50 mcg PO DAILY [facility] Last Admin: 11/04/16 08:39 Dose: 50 mcg Oxybutynin Chloride (Oxybutynin Er) 5 mg PO DAILY [facility] Last Admin: 11/04/16 08:39 Dose: 5 mg Potassium Chloride (Klor-Con M20) 40 meq PO BID [facility] Last Admin: 11/04/16 08:39 Dose: 40 meq Quetiapine Fumarate (Seroquel) 50 mg PO BEDTIME [facility] Last Admin: 11/03/16 20:42 Dose: 50 mg Tramadol HCl (Ultram) 50 mg PO Q6H PRN PRN Reason: Pain Last Admin: 11/02/16 18:09 Dose: 50 mg Tramadol HCl (Ultram) 50 mg PO BID [facility] Last Admin: 11/04/16 08:38 Dose: 50 mg Discontinued Medications Benzocaine/Menthol (Cepacol Sore Throat) 1 lozenge MUCMEM Q1H PRN PRN Reason: Sore Throat Bupivacaine HCl/Epinephrine Bitart (Marcaine 0.5%/Epinephrine 1:200,000) Confirm Administered Dose 50 ml .ROUTE .STK-MED ONE Stop: 10/27/16 14:56 Last Admin: 10/27/16 15:47 Dose: 20 ml Ertapenem (Invanz) Confirm Administered Dose 1 gm .ROUTE .STK-MED ONE Stop: 10/27/16 15:57 Fentanyl (Sublimaze) Confirm Administered Dose 100 mcg .ROUTE .STK-MED ONE Stop: 10/27/16 15:03 Fentanyl (Sublimaze) 25 mcg IVPUSH Q1H PRN PRN Reason: Pain (severe 7-10) Stop: 10/28/16 17:11 Last Admin: 10/28/16 12:51 Dose: 25 mcg Haloperidol Lactate (Haldol) 2 mg IVPUSH Q8H PRN PRN Reason: Agitation Last Admin: 10/29/16 10:05 Dose: 2 mg Haloperidol Lactate (Haldol) 3 mg IVPUSH ONETIME ONE Stop: 10/29/16 12:50 Last Admin: 10/29/16 13:04 Dose: 3 mg Hydromorphone HCl (Dilaudid) Confirm Administered Dose 1 mg .ROUTE .STK-MED ONE Stop: 10/27/16 15:57 Hydromorphone HCl (Dilaudid) 1 mg IVPUSH ONETIME ONE Stop: 10/30/16 08:05 Last Admin: 10/30/16 08:18 Dose: 1 mg Hydromorphone HCl (Dilaudid) 0.5 mg IVPUSH Q4H PRN PRN Reason: Pain Last Admin: 11/02/16 04:25 Dose: 0.5 mg Sodium Chloride (Normal Saline) 1,000 mls @ 125 mls/hr IV ASDIRECTED [facility] Last Admin: 10/27/16 10:47 Dose: 125 mls/hr Lidocaine HCl (Xylocaine-Mpf 1%) Confirm Administered Dose 6 mls @ as directed .ROUTE .K-MED ONE Stop: 10/27/16 15:57 Lactated Ringer's (Ringers, Lactated) 1,000 mls @ 100 mls/hr IV ASDIRECTED [facility] Last Admin: 10/28/16 04:04 Dose: 100 mls/hr Potassium Chloride 40 meq/ (Lactated Ringer's) 1,020 mls @ 102 mls/hr IV ASDIRECTED [facility] Stop: 10/29/16 01:00 Last Admin: 10/28/16 14:35 Dose: 102 mls/hr Potassium Cl/Dextrose/Lact Ringer's (D5 Lr With 20 Meq Kcl) 1,000 mls @ 100 mls /hr IV ASDIRECTED [facility] Last Admin: 11/01/16 14:02 Dose: 100 mls/hr Magnesium Sulfate 2 gm/ Premix 50 mls @ 25 mls/hr IV ONETIME ONE Stop: 10/30/16 12:03 Last Admin: 10/30/16 10:34 Dose: 25 mls/hr Insulin Aspart (Novolog) 0 unit SUBCUT Q6H [facility] PRN Reason: Protocol Last Admin: 10/31/16 13:24 Dose: Not Given Iopamidol (Isovue-300 (61%)) 100 ml IVPUSH ONETIME ONE Stop: 10/27/16 11:58 Last Admin: 10/27/16 12:03 Dose: 100 ml Lidocaine HCl (Xylocaine 1%) Confirm Administered Dose 50 ml .ROUTE .K-MED ONE Stop: 10/27/16 14:56 Last Admin: 10/27/16 15:47 Dose: 20 ml Lorazepam (Ativan) 0.5 mg IVPUSH Q8H PRN PRN Reason: Agitation Last Admin: 10/29/16 23:47 Dose: 0.5 mg Lorazepam (Ativan) 1 mg IVPUSH ONETIME ONE Stop: 10/29/16 12:50 Last Admin: 10/29/16 13:04 Dose: 1 mg Lorazepam (Ativan) 0.5 mg IM Q8H PRN PRN Reason: restlessness Last Admin: 10/31/16 23:18 Dose: 0.5 mg Lorazepam (Ativan) 0.5 mg IVPUSH Q8H PRN PRN Reason: restlessnes Metoclopramide HCl (Reglan) 10 mg IVPUSH ONETIME ONE Stop: 10/27/16 13:39 Last Admin: 10/27/16 13:52 Dose: 10 mg Morphine Sulfate (Morphine 10 Mg/0.5 Ml Oral Syringe) 2.5 mg PO Q6H PRN PRN Reason: Pain Last Admin: 11/01/16 06:52 Dose: 2.5 mg Naloxone HCl (Narcan) Confirm Administered Dose 0.4 mg .ROUTE .STK-MED ONE Stop: 10/27/16 16:57 Ondansetron HCl (Zofran) 4 mg IVPUSH ONETIME ONE Stop: 10/27/16 10:32 Last Admin: 10/27/16 10:47 Dose: 4 mg Ondansetron HCl (Zofran) 4 mg IVPUSH Q6H PRN PRN Reason: Nausea/Vomiting Pantoprazole Sodium (Protonix Iv) 40 mg IVPUSH DAILY [facility] Last Admin: 10/29/16 10:05 Dose: 40 mg Propofol (Diprivan 20 Ml) Confirm Administered Dose 200 mg .ROUTE .STK-MED ONE Stop: 10/27/16 15:03 Quetiapine Fumarate (Seroquel) 50 mg PO ONETIME ONE Stop: 10/29/16 11:45 Last Admin: 10/29/16 12:21 Dose: 50 mg Sodium Chloride (Saline Flush) 10 ml FLUSH ASDIRECTED PRN PRN Reason: Keep Vein Open Last Admin: 10/27/16 10:50 Dose: 10 ml Sodium Chloride (Saline Flush) 10 ml FLUSH ONETIME PRN PRN Reason: IV FLUSH Last Admin: 10/27/16 12:03 Dose: 10 ml Succinylcholine Chloride (Succinylcholine In Ns Pf) Confirm Administered Dose 100 mg .ROUTE .STK-MED ONE Stop: 10/27/16 15:57 Tramadol HCl (Ultram) 50 mg PO BID PRN PRN Reason: Pain Last Admin: 11/01/16 19:43 Dose: 50 mg Tramadol HCl (Ultram) 50 mg PO BID ONE Stop: 11/02/16 09:01 - Exam Quality Assessment: DVT prophylaxis General: alert, no acute distress HEENT: Pupils equal, Pupils reactive, EOMI, Mucous membr. moist/pink Neck: supple Lungs: Clear to auscultation, Normal respiratory effort Cardiovascular: Regular Rate, Regular Rhythm Abdomen: bowel sounds present, soft, no distension, other (PEG tube ) (Female) Exam: Deferred Back Exam: normal inspection Extremities: no edema Peripheral Pulses: 1+: dorsalis pedis (L), dorsalis pedis (R) Skin: warm, dry, intact Wound/Incisions: dressing dry and intact (to peg tube site) Neurological: normal speech, other (rumination/nonsensical thought process due to end stage dementia) Psy/Mental Status: alert, other (intermittent anxiety and aggitation noted throughout the day today) - Problem List & Annotations (1) Hiatal hernia with obstruction but no gangrene SNOMED Code(s): 14461652 Code(s): K44.0 - DIAPHRAGMATIC HERNIA WITH OBSTRUCTION, WITHOUT GANGRENE Status: Acute Priority: High Current Visit: Yes (2) Nausea and vomiting SNOMED Code(s): 67015114 Code(s): R11.2 - NAUSEA WITH VOMITING, UNSPECIFIED Status: Resolved Priority: High Current Visit: Yes Qualifiers: Vomiting type: unspecified Vomiting Intractability: intractable Qualified Code(s): R11.2 - Nausea with vomiting, unspecified (3) Dementia SNOMED Code(s): 99191616 Code(s): F03.90 - UNSPECIFIED DEMENTIA WITHOUT BEHAVIORAL DISTURBANCE Status: Chronic Priority: High Current Visit: Yes Qualifiers: Dementia type: Alzheimer's disease (4) PEG (percutaneous endoscopic gastrostomy) status SNOMED Code(s): 466561191, 355235780 Code(s): Z93.1 - GASTROSTOMY STATUS Status: Acute Priority: High Current Visit: Yes - Problem List Review Problem List Initiated/Reviewed/Updated: Yes - My Orders Last 24 Hours: My Active Orders 11/04/16 09:00 Famotidine [Pepcid] 20 mg PO BID - Plan Plan:: Incarcerated hiatal hernia with gastric outlet obstruction, status post laparoscopic reduction of incarcerated hiatal hernia; gastropexy with PEG tube placement. Stopped IV fluids and Consulted nutrition. -Eating has slightly improved today -Labs today, CBC, BMP all stable Chronic medical conditions: HTN- stable Hypothyroidism Hx of positive H Pylori Alzheimer Dementia Diverticulitis LOS>96 hours, pending placement back in SNF. I expect the rehab stay to be less than 30 days. SW continues to work on placement
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
[2016-11-04] MEDS: traMADol 50 MG Tab PO PRN (17:27)
[2016-11-04] MEDS: QUEtiapine 25 MG Tab PO SCH (20:17)
[2016-11-04] MEDS: Donepezil 10 MG Tab PO SCH (20:17)
[2016-11-05] MEDS: QUEtiapine 25 MG Tab PO SCH ×3 (05:53→20:32)
--- NOTE | 2016-11-05 07:55 | PCM.CONSN ---
- General Info Date of Service: 11/05/16 - Review of Systems Systems Review Comment:: Patient combative yesterday. Patient with active psychosis and now transfer being planned to a geriatric psychiatric facility. Patient awake in chair this morning, eating and calm. - Patient Data Vitals - most recent: Last Vital Signs Temp 97.5 F 11/05/16 02:35 Pulse 67 11/05/16 02:35 Resp 18 11/05/16 02:35 BP 123/81 11/05/16 02:35 Pulse Ox 96 11/05/16 02:35 Weight - most recent: 151 lb 1.6 oz I&O - last 24 hours: Intake & Output 11/04/16 11/05/16 11/05/16 22:59 06:59 14:59 Intake Total 310 100 Output Total 1025 0 Balance -715 100 Lab Results last 24 hrs: Laboratory Results - last 24 hr 11/04/16 11/04/16 Range/Units 07:25 07:25 WBC 5.49 (3.98-10.04) K/mm3 RBC 4.63 (3.98-5.22) M/mm3 Hgb 13.6 (11.2-15.7) gm/L Hct 41.1 (34.1-44.9) % MCV 88.8 (79.4-94.8) fl MCH 29.4 (25.6-32.2) pg MCHC 33.1 (32.2-35.5) g/dl RDW Std Deviation 44.8 (36.4-46.3) fL Plt Count 358 (182-369) K/mm3 MPV 9.5 (9.4-12.3) fl Neut % (Auto) 54.4 (34.0-71.1) % Lymph % (Auto) 23.9 (19.3-51.7) % [place] % (Auto) 16.6 H (4.7-12.5) % Eos % (Auto) 4.0 (0.7-5.8) Baso % (Auto) 0.9 (0.1-1.2) % Neut # (Auto) 2.99 (1.56-6.13) K/mm3 Lymph # (Auto) 1.31 (1.18-3.74) K/mm3 [place] # (Auto) 0.91 H (0.24-0.36) K/mm3 Eos # (Auto) 0.22 (0.04-0.36) K/mm3 Baso # (Auto) 0.05 (0.01-0.08) K/mm3 Manual Slide Review Normal smear Sodium 137 (136-145) mEq/L Potassium 4.3 (3.5-5.1) mEq/L Chloride 103 (98-107) mEq/L Carbon Dioxide 24 (21-32) mEq/L Anion Gap 14.3 (5-15) BUN 12 (7-18) mg/dL Creatinine 1.0 (0.55-1.02) mg/dL Est Cr Clr Drug Dosing 35.49 mL/min Estimated GFR (MDRD) 53 (>60) mL/min BUN/Creatinine Ratio 12.0 L (14-18) Glucose 93 (83-115) mg/dL Calcium 9.3 (8.5-10.1) mg/dL Med Orders - Current: Current Medications Dextrose/Water (Dextrose 50% In Water) 50 ml IVPUSH ASDIRECTED PRN PRN Reason: Hypoglycemia Donepezil HCl (Aricept) 5 mg PO BEDTIME [facility] Last Admin: 11/04/16 20:17 Dose: 5 mg Famotidine (Pepcid) 20 mg PO BID [facility] Last Admin: 11/04/16 20:17 Dose: 20 mg Haloperidol Lactate (Haldol) 2 mg IVPUSH Q8H PRN PRN Reason: restlessness Levothyroxine Sodium (Synthroid) 50 mcg PO DAILY [facility] Last Admin: 11/04/16 08:39 Dose: 50 mcg Oxybutynin Chloride (Oxybutynin Er) 5 mg PO DAILY [facility] Last Admin: 11/04/16 08:39 Dose: 5 mg Potassium Chloride (Klor-Con M20) 40 meq PO BID [facility] Last Admin: 11/04/16 20:16 Dose: 40 meq Quetiapine Fumarate (Seroquel) 50 mg PO BEDTIME [facility] Last Admin: 11/04/16 20:17 Dose: 50 mg Quetiapine Fumarate (Seroquel) 6.25 mg PO BIDDIURETIC [facility] Last Admin: 11/05/16 05:53 Dose: 6.25 mg Tramadol HCl (Ultram) 50 mg PO Q6H PRN PRN Reason: Pain Last Admin: 11/04/16 17:27 Dose: 50 mg Tramadol HCl (Ultram) 50 mg PO BID [facility] Last Admin: 11/04/16 20:17 Dose: 50 mg Discontinued Medications Benzocaine/Menthol (Cepacol Sore Throat) 1 lozenge MUCMEM Q1H PRN PRN Reason: Sore Throat Bupivacaine HCl/Epinephrine Bitart (Marcaine 0.5%/Epinephrine 1:200,000) Confirm Administered Dose 50 ml .ROUTE .STK-MED ONE Stop: 10/27/16 14:56 Last Admin: 10/27/16 15:47 Dose: 20 ml Ertapenem (Invanz) Confirm Administered Dose 1 gm .ROUTE .STK-MED ONE Stop: 10/27/16 15:57 Fentanyl (Sublimaze) Confirm Administered Dose 100 mcg .ROUTE .STK-MED ONE Stop: 10/27/16 15:03 Fentanyl (Sublimaze) 25 mcg IVPUSH Q1H PRN PRN Reason: Pain (severe 7-10) Stop: 10/28/16 17:11 Last Admin: 10/28/16 12:51 Dose: 25 mcg Haloperidol Lactate (Haldol) 2 mg IVPUSH Q8H PRN PRN Reason: Agitation Last Admin: 10/29/16 10:05 Dose: 2 mg Haloperidol Lactate (Haldol) 3 mg IVPUSH ONETIME ONE Stop: 10/29/16 12:50 Last Admin: 10/29/16 13:04 Dose: 3 mg Haloperidol Lactate (Haldol) 1 mg IVPUSH NOW STA Stop: 11/04/16 13:30 Last Admin: 11/04/16 13:37 Dose: 1 mg Haloperidol Lactate (Haldol) 3 mg IVPUSH ONETIME STA Stop: 11/04/16 13:46 Last Admin: 11/04/16 13:50 Dose: 3 mg Hydromorphone HCl (Dilaudid) Confirm Administered Dose 1 mg .ROUTE .STK-MED ONE Stop: 10/27/16 15:57 Hydromorphone HCl (Dilaudid) 1 mg IVPUSH ONETIME ONE Stop: 10/30/16 08:05 Last Admin: 10/30/16 08:18 Dose: 1 mg Hydromorphone HCl (Dilaudid) 0.5 mg IVPUSH Q4H PRN PRN Reason: Pain Last Admin: 11/02/16 04:25 Dose: 0.5 mg Sodium Chloride (Normal Saline) 1,000 mls @ 125 mls/hr IV ASDIRECTED [facility] Last Admin: 10/27/16 10:47 Dose: 125 mls/hr Lidocaine HCl (Xylocaine-Mpf 1%) Confirm Administered Dose 6 mls @ as directed .ROUTE .STK-MED ONE Stop: 10/27/16 15:57 Lactated Ringer's (Ringers, Lactated) 1,000 mls @ 100 mls/hr IV ASDIRECTED [facility] Last Admin: 10/28/16 04:04 Dose: 100 mls/hr Potassium Chloride 40 meq/ (Lactated Ringer's) 1,020 mls @ 102 mls/hr IV ASDIRECTED [facility] Stop: 10/29/16 01:00 Last Admin: 10/28/16 14:35 Dose: 102 mls/hr Potassium Cl/Dextrose/Lact Ringer's (D5 Lr With 20 Meq Kcl) 1,000 mls @ 100 mls /hr IV ASDIRECTED [facility] Last Admin: 11/01/16 14:02 Dose: 100 mls/hr Magnesium Sulfate 2 gm/ Premix 50 mls @ 25 mls/hr IV ONETIME ONE Stop: 10/30/16 12:03 Last Admin: 10/30/16 10:34 Dose: 25 mls/hr Insulin Aspart (Novolog) 0 unit SUBCUT Q6H [facility] PRN Reason: Protocol Last Admin: 10/31/16 13:24 Dose: Not Given Iopamidol (Isovue-300 (61%)) 100 ml IVPUSH ONETIME ONE Stop: 10/27/16 11:58 Last Admin: 10/27/16 12:03 Dose: 100 ml Lidocaine HCl (Xylocaine 1%) Confirm Administered Dose 50 ml .ROUTE .STK-MED ONE Stop: 10/27/16 14:56 Last Admin: 10/27/16 15:47 Dose: 20 ml Lorazepam (Ativan) 0.5 mg IVPUSH Q8H PRN PRN Reason: Agitation Last Admin: 10/29/16 23:47 Dose: 0.5 mg Lorazepam (Ativan) 1 mg IVPUSH ONETIME ONE Stop: 10/29/16 12:50 Last Admin: 10/29/16 13:04 Dose: 1 mg Lorazepam (Ativan) 0.5 mg IM Q8H PRN PRN Reason: restlessness Last Admin: 10/31/16 23:18 Dose: 0.5 mg Lorazepam (Ativan) 0.5 mg IVPUSH Q8H PRN PRN Reason: restlessnes Metoclopramide HCl (Reglan) 10 mg IVPUSH ONETIME ONE Stop: 10/27/16 13:39 Last Admin: 10/27/16 13:52 Dose: 10 mg Morphine Sulfate (Morphine 10 Mg/0.5 Ml Oral Syringe) 2.5 mg PO Q6H PRN PRN Reason: Pain Last Admin: 11/01/16 06:52 Dose: 2.5 mg Naloxone HCl (Narcan) Confirm Administered Dose 0.4 mg .ROUTE .STK-MED ONE Stop: 10/27/16 16:57 Ondansetron HCl (Zofran) 4 mg IVPUSH ONETIME ONE Stop: 10/27/16 10:32 Last Admin: 10/27/16 10:47 Dose: 4 mg Ondansetron HCl (Zofran) 4 mg IVPUSH Q6H PRN PRN Reason: Nausea/Vomiting Pantoprazole Sodium (Protonix Iv) 40 mg IVPUSH DAILY [facility] Last Admin: 10/29/16 10:05 Dose: 40 mg Propofol (Diprivan 20 Ml) Confirm Administered Dose 200 mg .ROUTE .STK-MED ONE Stop: 10/27/16 15:03 Quetiapine Fumarate (Seroquel) 50 mg PO ONETIME ONE Stop: 10/29/16 11:45 Last Admin: 10/29/16 12:21 Dose: 50 mg Sodium Chloride (Saline Flush) 10 ml FLUSH ASDIRECTED PRN PRN Reason: Keep Vein Open Last Admin: 10/27/16 10:50 Dose: 10 ml Sodium Chloride (Saline Flush) 10 ml FLUSH ONETIME PRN PRN Reason: IV FLUSH Last Admin: 10/27/16 12:03 Dose: 10 ml Succinylcholine Chloride (Succinylcholine In Ns Pf) Confirm Administered Dose 100 mg .ROUTE .STK-MED ONE Stop: 10/27/16 15:57 Tramadol HCl (Ultram) 50 mg PO BID PRN PRN Reason: Pain Last Admin: 11/01/16 19:43 Dose: 50 mg Tramadol HCl (Ultram) 50 mg PO BID ONE Stop: 11/02/16 09:01 - Exam General: alert, cooperative, no acute distress Lungs: Normal respiratory effort Abdomen: soft, no distension, tenderness (minimal TTP around tube insertion site. Normal drainage around peg tube.) Wound/Incisions: healing well. No: erythema Psy/Mental Status: alert Consult PN Assessment/Plan Procedures: Procedures ASSAY OF CK (CPK) (09/11/15) ASSAY OF LACTIC ACID (02/12/16) ASSAY OF LIPASE (06/18/16) ASSAY OF MAGNESIUM (09/11/15) ASSAY OF NATRIURETIC PEPTIDE (02/12/16) ASSAY OF PHOSPHORUS (09/11/15) ASSAY OF SERUM POTASSIUM (09/11/15) ASSAY OF TROPONIN QUANT (06/18/16) ASSAY THYROID STIM HORMONE (02/12/16) BLOOD CULTURE FOR BACTERIA (02/12/16) BLOOD GASES ANY COMBINATION (02/12/16) BLOOD TYPING SEROLOGIC ABO (09/11/15) BLOOD TYPING SEROLOGIC RH(D) (09/11/15) C-REACTIVE PROTEIN (09/11/15) CHEST X-RAY 1 VIEW FRONTAL (06/18/16) COMPLETE CBC AUTOMATED (09/11/15) COMPLETE CBC W/AUTO DIFF WBC (06/18/16) COMPREHEN METABOLIC PANEL (06/18/16) CT ABD & PELV W/CONTRAST (01/11/16) CT ANGIOGRAPHY CHEST (02/20/15) CT HEAD/BRAIN W/O DYE (02/12/16) ELECTROCARDIOGRAM TRACING (06/18/16) EMERGENCY DEPT VISIT (06/18/16) EMERGENCY DEPT VISIT (02/11/14) FIBRIN DEGRADATION QUANT (02/12/16) GAIT TRAINING THERAPY (09/11/15) GLYCOSYLATED HEMOGLOBIN TEST (09/11/15) HELICOBACTER PYLORI ANTIBODY (06/18/16) HYDRATE IV INFUSION ADD-ON (01/11/16) HYDRATION IV INFUSION INIT (01/11/16) METABOLIC PANEL TOTAL CA (09/11/15) OCCULT BLD FECES 1-3 TESTS (09/11/15) OT EVALUATION (09/11/15) PROTHROMBIN TIME (02/12/16) PT EVALUATION (09/11/15) ROUTINE VENIPUNCTURE (06/18/16) TEST FOR ACETONE/KETONES (09/11/15) THER/PROPH/DIAG INJ IV PUSH (06/18/16) THER/PROPH/DIAG INJ SC/IM (02/20/15) THERAPEUTIC ACTIVITIES (09/11/15) THERAPEUTIC EXERCISES (09/11/15) THROMBOPLASTIN TIME PARTIAL (02/12/16) TX/PRO/DX INJ NEW DRUG ADDON (06/18/16) URINALYSIS AUTO W/SCOPE (02/12/16) WITHDRAWAL OF ARTERIAL BLOOD (02/12/16) X-RAY EXAM OF FEMUR 2/> (09/11/15) X-RAY EXAM OF PELVIS (02/12/16) (1) Hiatal hernia with obstruction but no gangrene SNOMED Code(s): 79795499 Code(s): K44.0 - DIAPHRAGMATIC HERNIA WITH OBSTRUCTION, WITHOUT GANGRENE Priority: High Current Visit: Yes Problem List Initiated/Reviewed/Updated: Yes My Orders last 24 hours: My Active Orders 11/04/16 08:35 PEG Tube Management [Percutaneous Endoscopic Gastostomy Tube] [OM.PC] BID 11/05/16 08:35 PEG Tube Management [Percutaneous Endoscopic Gastostomy Tube] [OM.PC] BID Plan: 81 yo woman s/p laparoscopic decompression of acutely incarcerated hiatal hernia with PEG tube gastropexy on October 27 PEG tube currently clamped. PO intake signficantly improved today. Patient much more alert today. The PEG tube can be used for feeds or medications if necessary, although family prefers not. No obvious complications from surgery. I did review Abd XR, unremarkable. No evidence of ileus. Some residual hiatal hernia present. PEG tube flange loosened, no sutures remain. Tube used as gastropexy and can be removed 8 WEEKS from date of surgery Will continue to follow along while patient is admitted.
[2016-11-05] MEDS: Potassium Chloride 20 MEQ Tab.ER PO SCH ×2 (08:32→20:37)
[2016-11-05] MEDS: Oxybutynin 5 MG Tab.ER PO SCH (08:33)
[2016-11-05] MEDS: Levothyroxine 50 MCG Tab PO SCH (08:33)
[2016-11-05] MEDS: traMADol 50 MG Tab PO SCH ×2 (08:33→20:33)
[2016-11-05] MEDS: Famotidine 20 MG Tab PO SCH ×2 (08:33→20:33)
--- NOTE | 2016-11-05 10:24 | PCM.PN ---
- General Info Date of Service: 11/05/16 Admission Dx/Problem (Free Text): Berna is seen this morning, by myself accompanied by nursing. She appears comfortable, states "no" when asked if in pain. Acute psychosis episode yesterday is improved and she is calm currently. She slept most of the night without incident by nursing report. VSS. Labs done yesterday, stable. Functional Status: Reports: pain controlled - Review of Systems Systems Review Comment:: Unable to obtain due to end stage dementia; nonsensical thoughts/speech - Patient Data Vitals - most recent: Last Vital Signs Temp 98.1 F 11/05/16 07:52 Pulse 63 11/05/16 07:52 Resp 18 11/05/16 07:52 BP 106/61 11/05/16 07:53 Pulse Ox 95 11/05/16 07:52 Weight - most recent: 151 lb 1.6 oz I&O - last 24 hours: Intake & Output 11/04/16 11/05/16 11/05/16 22:59 06:59 14:59 Intake Total 310 100 30 Output Total 1025 0 Balance -715 100 30 Med Orders - Current: Current Medications Dextrose/Water (Dextrose 50% In Water) 50 ml IVPUSH ASDIRECTED PRN PRN Reason: Hypoglycemia Donepezil HCl (Aricept) 5 mg PO BEDTIME [facility] Last Admin: 11/04/16 20:17 Dose: 5 mg Famotidine (Pepcid) 20 mg PO BID [facility] Last Admin: 11/05/16 08:33 Dose: 20 mg Haloperidol Lactate (Haldol) 2 mg IVPUSH Q8H PRN PRN Reason: restlessness Levothyroxine Sodium (Synthroid) 50 mcg PO DAILY [facility] Last Admin: 11/05/16 08:33 Dose: 50 mcg Oxybutynin Chloride (Oxybutynin Er) 5 mg PO DAILY [facility] Last Admin: 11/05/16 08:33 Dose: 5 mg Potassium Chloride (Klor-Con M20) 40 meq PO BID [facility] Last Admin: 11/05/16 08:32 Dose: 40 meq Quetiapine Fumarate (Seroquel) 50 mg PO BEDTIME [facility] Last Admin: 11/04/16 20:17 Dose: 50 mg Quetiapine Fumarate (Seroquel) 6.25 mg PO BIDDIURETIC [facility] Last Admin: 11/05/16 05:53 Dose: 6.25 mg Tramadol HCl (Ultram) 50 mg PO Q6H PRN PRN Reason: Pain Last Admin: 11/04/16 17:27 Dose: 50 mg Tramadol HCl (Ultram) 50 mg PO BID [facility] Last Admin: 11/05/16 08:33 Dose: 50 mg Discontinued Medications Benzocaine/Menthol (Cepacol Sore Throat) 1 lozenge MUCMEM Q1H PRN PRN Reason: Sore Throat Bupivacaine HCl/Epinephrine Bitart (Marc[place] 0.5%/Epinephrine 1:200,000) Confirm Administered Dose 50 ml .ROUTE .STK-MED ONE Stop: 10/27/16 14:56 Last Admin: 10/27/16 15:47 Dose: 20 ml Ertapenem (Invanz) Confirm Administered Dose 1 gm .ROUTE .STK-MED ONE Stop: 10/27/16 15:57 Fentanyl (Sublimaze) Confirm Administered Dose 100 mcg .ROUTE .STK-MED ONE Stop: 10/27/16 15:03 Fentanyl (Sublimaze) 25 mcg IVPUSH Q1H PRN PRN Reason: Pain (severe 7-10) Stop: 10/28/16 17:11 Last Admin: 10/28/16 12:51 Dose: 25 mcg Haloperidol Lactate (Haldol) 2 mg IVPUSH Q8H PRN PRN Reason: Agitation Last Admin: 10/29/16 10:05 Dose: 2 mg Haloperidol Lactate (Haldol) 3 mg IVPUSH ONETIME ONE Stop: 10/29/16 12:50 Last Admin: 10/29/16 13:04 Dose: 3 mg Haloperidol Lactate (Haldol) 1 mg IVPUSH NOW STA Stop: 11/04/16 13:30 Last Admin: 11/04/16 13:37 Dose: 1 mg Haloperidol Lactate (Haldol) 3 mg IVPUSH ONETIME STA Stop: 11/04/16 13:46 Last Admin: 11/04/16 13:50 Dose: 3 mg Hydromorphone HCl (Dilaudid) Confirm Administered Dose 1 mg .ROUTE .STK-MED ONE Stop: 10/27/16 15:57 Hydromorphone HCl (Dilaudid) 1 mg IVPUSH ONETIME ONE Stop: 10/30/16 08:05 Last Admin: 10/30/16 08:18 Dose: 1 mg Hydromorphone HCl (Dilaudid) 0.5 mg IVPUSH Q4H PRN PRN Reason: Pain Last Admin: 11/02/16 04:25 Dose: 0.5 mg Sodium Chloride (Normal Saline) 1,000 mls @ 125 mls/hr IV ASDIRECTED [facility] Last Admin: 10/27/16 10:47 Dose: 125 mls/hr Lidocaine HCl (Xylocaine-Mpf 1%) Confirm Administered Dose 6 mls @ as directed .ROUTE .STK-MED ONE Stop: 10/27/16 15:57 Lactated Ringer's (Ringers, Lactated) 1,000 mls @ 100 mls/hr IV ASDIRECTED [facility] Last Admin: 10/28/16 04:04 Dose: 100 mls/hr Potassium Chloride 40 meq/ (Lactated Ringer's) 1,020 mls @ 102 mls/hr IV ASDIRECTED [facility] Stop: 10/29/16 01:00 Last Admin: 10/28/16 14:35 Dose: 102 mls/hr Potassium Cl/Dextrose/Lact Ringer's (D5 Lr With 20 Meq Kcl) 1,000 mls @ 100 mls /hr IV ASDIRECTED [facility] Last Admin: 11/01/16 14:02 Dose: 100 mls/hr Magnesium Sulfate 2 gm/ Premix 50 mls @ 25 mls/hr IV ONETIME ONE Stop: 10/30/16 12:03 Last Admin: 10/30/16 10:34 Dose: 25 mls/hr Insulin Aspart (Novolog) 0 unit SUBCUT Q6H [facility] PRN Reason: Protocol Last Admin: 10/31/16 13:24 Dose: Not Given Iopamidol (Isovue-300 (61%)) 100 ml IVPUSH ONETIME ONE Stop: 10/27/16 11:58 Last Admin: 10/27/16 12:03 Dose: 100 ml Lidocaine HCl (Xylocaine 1%) Confirm Administered Dose 50 ml .ROUTE .STK-MED ONE Stop: 10/27/16 14:56 Last Admin: 10/27/16 15:47 Dose: 20 ml Lorazepam (Ativan) 0.5 mg IVPUSH Q8H PRN PRN Reason: Agitation Last Admin: 03/30/17 23:47 Dose: 0.5 mg Lorazepam (Ativan) 1 mg IVPUSH ONETIME ONE Stop: 10/29/16 12:50 Last Admin: 10/29/16 13:04 Dose: 1 mg Lorazepam (Ativan) 0.5 mg IM Q8H PRN PRN Reason: restlessness Last Admin: 10/31/16 23:18 Dose: 0.5 mg Lorazepam (Ativan) 0.5 mg IVPUSH Q8H PRN PRN Reason: restlessnes Metoclopramide HCl (Reglan) 10 mg IVPUSH ONETIME ONE Stop: 10/27/16 13:39 Last Admin: 10/27/16 13:52 Dose: 10 mg Morphine Sulfate (Morphine 10 Mg/0.5 Ml Oral Syringe) 2.5 mg PO Q6H PRN PRN Reason: Pain Last Admin: 11/01/16 06:52 Dose: 2.5 mg Naloxone HCl (Narcan) Confirm Administered Dose 0.4 mg .ROUTE .STK-MED ONE Stop: 10/27/16 16:57 Ondansetron HCl (Zofran) 4 mg IVPUSH ONETIME ONE Stop: 10/27/16 10:32 Last Admin: 10/27/16 10:47 Dose: 4 mg Ondansetron HCl (Zofran) 4 mg IVPUSH Q6H PRN PRN Reason: Nausea/Vomiting Pantoprazole Sodium (Protonix Iv) 40 mg IVPUSH DAILY [facility] Last Admin: 10/29/16 10:05 Dose: 40 mg Propofol (Diprivan 20 Ml) Confirm Administered Dose 200 mg .ROUTE .STK-MED ONE Stop: 10/27/16 15:03 Quetiapine Fumarate (Seroquel) 50 mg PO ONETIME ONE Stop: 10/29/16 11:45 Last Admin: 10/29/16 12:21 Dose: 50 mg Sodium Chloride (Saline Flush) 10 ml FLUSH ASDIRECTED PRN PRN Reason: Keep Vein Open Last Admin: 10/27/16 10:50 Dose: 10 ml Sodium Chloride (Saline Flush) 10 ml FLUSH ONETIME PRN PRN Reason: IV FLUSH Last Admin: 10/27/16 12:03 Dose: 10 ml Succinylcholine Chloride (Succinylcholine In Ns Pf) Confirm Administered Dose 100 mg .ROUTE .STK-MED ONE Stop: 10/27/16 15:57 Tramadol HCl (Ultram) 50 mg PO BID PRN PRN Reason: Pain Last Admin: 11/01/16 19:43 Dose: 50 mg Tramadol HCl (Ultram) 50 mg PO BID ONE Stop: 11/02/16 09:01 - Exam Quality Assessment: DVT prophylaxis General: alert, cooperative, no acute distress HEENT: Pupils equal, Pupils reactive, EOMI, Mucous membr. moist/pink Neck: supple Lungs: Clear to auscultation, Normal respiratory effort Cardiovascular: Regular Rate, Regular Rhythm, No Murmurs Abdomen: bowel sounds present, soft, no distension, other (PEG site is without s /s of infection, no concerns) (Female) Exam: Deferred Back Exam: normal inspection Extremities: no edema, no calf tenderness Peripheral Pulses: 1+: dorsalis pedis (L), dorsalis pedis (R) Skin: warm, dry, intact Psy/Mental Status: alert, anxious (intermittent), agitated (intermittent but improved from yesterday) - Problem List & Annotations (1) Hiatal hernia with obstruction but no gangrene SNOMED Code(s): 87630336 Code(s): K44.0 - DIAPHRAGMATIC HERNIA WITH OBSTRUCTION, WITHOUT GANGRENE Status: Acute Priority: High Current Visit: Yes (2) Nausea and vomiting SNOMED Code(s): 05000109 Code(s): R11.2 - NAUSEA WITH VOMITING, UNSPECIFIED Status: Resolved Priority: High Current Visit: Yes Qualifiers: Qualified Code(s): R11.2 - Nausea with vomiting, unspecified (3) Dementia SNOMED Code(s): 31559732 Code(s): F03.90 - UNSPECIFIED DEMENTIA WITHOUT BEHAVIORAL DISTURBANCE Status: Chronic Priority: High Current Visit: Yes (4) PEG (percutaneous endoscopic gastrostomy) status SNOMED Code(s): 576196890, 275104813 Code(s): Z93.1 - GASTROSTOMY STATUS Status: Acute Priority: High Current Visit: Yes - Problem List Review Problem List Initiated/Reviewed/Updated: Yes - My Orders Last 24 Hours: My Active Orders 11/04/16 13:32 Consult to Physician [CONS] Urgent 11/04/16 13:33 Notify Provider Consults [RC] ASDIRECTED 11/04/16 16:36 Communication Order [RC] DAILY - Plan Plan:: Incarcerated hiatal hernia with gastric outlet obstruction, status post laparoscopic reduction of incarcerated hiatal hernia; gastropexy with PEG tube placement. Stopped IV fluids and Consulted nutrition. -Eating has slightly improved today -Labs today, CBC, BMP all stable Acute psychosis with aggitation and combative behaviors -Improved from yesterday afternoon after 4mg haldol given IV -Dr. Jennings did speak with Psychiatrist, Dr Hughes who recommends Seroquel 6.25 BID and 50mg at HS which was started yesterday. -SW working on plans for transfer to inpatient psychiatric facility for further eval and treatment Chronic medical conditions: HTN- stable Hypothyroidism Hx of positive H Pylori Alzheimer Dementia Diverticulitis LOS>96 hours, pending placement.
[2016-11-05] MEDS: traMADol 50 MG Tab PO PRN (14:18)
[2016-11-05] MEDS: Donepezil 10 MG Tab PO SCH (20:37)
[2016-11-06] MEDS: traMADol 50 MG Tab PO PRN ×2 (03:08→15:43)
[2016-11-06] MEDS: QUEtiapine 25 MG Tab PO SCH ×3 (06:35→20:19)
--- NOTE | 2016-11-06 07:36 | PCM.PN ---
- General Info Date of Service: 11/06/16 Admission Dx/Problem (Free Text): Berna is seen this morning, by myself accompanied by nursing. She appears comfortable, states "no" when asked if in pain. She rested well last night but did talk intermittently throughout the night. SW is continue to work on placement for her. Behaviors have been much better the past 24+ hours. Functional Status: Reports: pain controlled, tolerating diet (appetite is improved), ambulating, urinating. Denies: new symptoms - Review of Systems General: Reports: No Symptoms HEENT: Reports: no symptoms Pulmonary: Reports: no symptoms Cardiovascular: Reports: No Symptoms Gastrointestinal: Reports: No symptoms Neurological: Reports: Confusion (end stage dementia; nonsensical speech) Psychiatric: Reports: confusion - Patient Data Vitals - most recent: Last Vital Signs Temp 98.4 F 11/06/16 03:04 Pulse 71 11/06/16 03:04 Resp 16 11/06/16 03:04 BP 132/92 H 11/06/16 03:04 Pulse Ox 99 11/06/16 03:04 Weight - most recent: 150 lb 4.8 oz I&O - last 24 hours: Intake & Output 11/05/16 11/06/16 11/06/16 22:59 06:59 14:59 Intake Total 730 426 Output Total 800 600 Balance -70 -174 Med Orders - Current: Current Medications Dextrose/Water (Dextrose 50% In Water) 50 ml IVPUSH ASDIRECTED PRN PRN Reason: Hypoglycemia Donepezil HCl (Aricept) 5 mg PO BEDTIME [facility] Last Admin: 11/05/16 20:37 Dose: 5 mg Famotidine (Pepcid) 20 mg PO BID [facility] Last Admin: 11/05/16 20:33 Dose: 20 mg Levothyroxine Sodium (Synthroid) 50 mcg PO DAILY [facility] Last Admin: 11/05/16 08:33 Dose: 50 mcg Oxybutynin Chloride (Oxybutynin Er) 5 mg PO DAILY [facility] Last Admin: 11/05/16 08:33 Dose: 5 mg Potassium Chloride (Klor-Con M20) 40 meq PO BID [facility] Last Admin: 11/05/16 20:37 Dose: 40 meq Quetiapine Fumarate (Seroquel) 50 mg PO BEDTIME [facility] Last Admin: 11/05/16 20:32 Dose: 50 mg Quetiapine Fumarate (Seroquel) 6.25 mg PO BIDDIURETIC [facility] Last Admin: 11/06/16 06:35 Dose: 6.25 mg Tramadol HCl (Ultram) 50 mg PO Q6H PRN PRN Reason: Pain Last Admin: 11/06/16 03:08 Dose: 50 mg Tramadol HCl (Ultram) 50 mg PO BID [facility] Last Admin: 11/05/16 20:33 Dose: 50 mg Discontinued Medications Benzocaine/Menthol (Cepacol Sore Throat) 1 lozenge MUCMEM Q1H PRN PRN Reason: Sore Throat Bupivacaine HCl/Epinephrine Bitart (Marcaine 0.5%/Epinephrine 1:200,000) Confirm Administered Dose 50 ml .ROUTE .STK-MED ONE Stop: 10/27/16 14:56 Last Admin: 10/27/16 15:47 Dose: 20 ml Ertapenem (Invanz) Confirm Administered Dose 1 gm .ROUTE .STK-MED ONE Stop: 10/27/16 15:57 Fentanyl (Sublimaze) Confirm Administered Dose 100 mcg .ROUTE .STK-MED ONE Stop: 10/27/16 15:03 Fentanyl (Sublimaze) 25 mcg IVPUSH Q1H PRN PRN Reason: Pain (severe 7-10) Stop: 10/28/16 17:11 Last Admin: 10/28/16 12:51 Dose: 25 mcg Haloperidol Lactate (Haldol) 2 mg IVPUSH Q8H PRN PRN Reason: Agitation Last Admin: 10/29/16 10:05 Dose: 2 mg Haloperidol Lactate (Haldol) 3 mg IVPUSH ONETIME ONE Stop: 10/29/16 12:50 Last Admin: 10/29/16 13:04 Dose: 3 mg Haloperidol Lactate (Haldol) 2 mg IVPUSH Q8H PRN PRN Reason: restlessness Haloperidol Lactate (Haldol) 1 mg IVPUSH NOW STA Stop: 11/04/16 13:30 Last Admin: 11/04/16 13:37 Dose: 1 mg Haloperidol Lactate (Haldol) 3 mg IVPUSH ONETIME STA Stop: 11/04/16 13:46 Last Admin: 11/04/16 13:50 Dose: 3 mg Hydromorphone HCl (Dilaudid) Confirm Administered Dose 1 mg .ROUTE .STK-MED ONE Stop: 10/27/16 15:57 Hydromorphone HCl (Dilaudid) 1 mg IVPUSH ONETIME ONE Stop: 10/30/16 08:05 Last Admin: 10/30/16 08:18 Dose: 1 mg Hydromorphone HCl (Dilaudid) 0.5 mg IVPUSH Q4H PRN PRN Reason: Pain Last Admin: 11/02/16 04:25 Dose: 0.5 mg Sodium Chloride (Normal Saline) 1,000 mls @ 125 mls/hr IV ASDIRECTED [facility] Last Admin: 10/27/16 10:47 Dose: 125 mls/hr Lidocaine HCl (Xylocaine-Mpf 1%) Confirm Administered Dose 6 mls @ as directed .ROUTE .STK-MED ONE Stop: 10/27/16 15:57 Lactated Ringer's (Ringers, Lactated) 1,000 mls @ 100 mls/hr IV ASDIRECTED [facility] Last Admin: 10/28/16 04:04 Dose: 100 mls/hr Potassium Chloride 40 meq/ (Lactated Ringer's) 1,020 mls @ 102 mls/hr IV ASDIRECTED [facility] Stop: 10/29/16 01:00 Last Admin: 10/28/16 14:35 Dose: 102 mls/hr Potassium Cl/Dextrose/Lact Ringer's (D5 Lr With 20 Meq Kcl) 1,000 mls @ 100 mls /hr IV ASDIRECTED [facility] Last Admin: 11/01/16 14:02 Dose: 100 mls/hr Magnesium Sulfate 2 gm/ Premix 50 mls @ 25 mls/hr IV ONETIME ONE Stop: 10/30/16 12:03 Last Admin: 10/30/16 10:34 Dose: 25 mls/hr Insulin Aspart (Novolog) 0 unit SUBCUT Q6H [facility] PRN Reason: Protocol Last Admin: 10/31/16 13:24 Dose: Not Given Iopamidol (Isovue-300 (61%)) 100 ml IVPUSH ONETIME ONE Stop: 10/27/16 11:58 Last Admin: 10/27/16 12:03 Dose: 100 ml Lidocaine HCl (Xylocaine 1%) Confirm Administered Dose 50 ml .ROUTE .STK-MED ONE Stop: 10/27/16 14:56 Last Admin: 10/27/16 15:47 Dose: 20 ml Lorazepam (Ativan) 0.5 mg IVPUSH Q8H PRN PRN Reason: Agitation Last Admin: 10/29/16 23:47 Dose: 0.5 mg Lorazepam (Ativan) 1 mg IVPUSH ONETIME ONE Stop: 10/29/16 12:50 Last Admin: 10/29/16 13:04 Dose: 1 mg Lorazepam (Ativan) 0.5 mg IM Q8H PRN PRN Reason: restlessness Last Admin: 10/31/16 23:18 Dose: 0.5 mg Lorazepam (Ativan) 0.5 mg IVPUSH Q8H PRN PRN Reason: restlessnes Metoclopramide HCl (Reglan) 10 mg IVPUSH ONETIME ONE Stop: 10/27/16 13:39 Last Admin: 10/27/16 13:52 Dose: 10 mg Morphine Sulfate (Morphine 10 Mg/0.5 Ml Oral Syringe) 2.5 mg PO Q6H PRN PRN Reason: Pain Last Admin: 11/01/16 06:52 Dose: 2.5 mg Naloxone HCl (Narcan) Confirm Administered Dose 0.4 mg .ROUTE .STK-MED ONE Stop: 10/27/16 16:57 Ondansetron HCl (Zofran) 4 mg IVPUSH ONETIME ONE Stop: 10/27/16 10:32 Last Admin: 10/27/16 10:47 Dose: 4 mg Ondansetron HCl (Zofran) 4 mg IVPUSH Q6H PRN PRN Reason: Nausea/Vomiting Pantoprazole Sodium (Protonix Iv) 40 mg IVPUSH DAILY [facility] Last Admin: 10/29/16 10:05 Dose: 40 mg Propofol (Diprivan 20 Ml) Confirm Administered Dose 200 mg .ROUTE .STK-MED ONE Stop: 10/27/16 15:03 Quetiapine Fumarate (Seroquel) 50 mg PO ONETIME ONE Stop: 10/29/16 11:45 Last Admin: 10/29/16 12:21 Dose: 50 mg Sodium Chloride (Saline Flush) 10 ml FLUSH ASDIRECTED PRN PRN Reason: Keep Vein Open Last Admin: 10/27/16 10:50 Dose: 10 ml Sodium Chloride (Saline Flush) 10 ml FLUSH ONETIME PRN PRN Reason: IV FLUSH Last Admin: 10/27/16 12:03 Dose: 10 ml Succinylcholine Chloride (Succinylcholine In Ns Pf) Confirm Administered Dose 100 mg .ROUTE .STK-MED ONE Stop: 10/27/16 15:57 Tramadol HCl (Ultram) 50 mg PO BID PRN PRN Reason: Pain Last Admin: 11/01/16 19:43 Dose: 50 mg Tramadol HCl (Ultram) 50 mg PO BID ONE Stop: 11/02/16 09:01 - Exam Quality Assessment: DVT prophylaxis General: alert, cooperative, no acute distress HEENT: Pupils equal, Pupils reactive, EOMI, Mucous membr. moist/pink Neck: supple Lungs: Clear to auscultation, Normal respiratory effort Cardiovascular: Regular Rate, Regular Rhythm Abdomen: bowel sounds present, soft, no tenderness, no distension, other (PEG tube site intact, no s/s of infection) (Female) Exam: Deferred Back Exam: normal inspection Extremities: no edema, no calf tenderness Peripheral Pulses: 1+: dorsalis pedis (L), dorsalis pedis (R) Skin: warm, dry Neurological: other (end stage dementia- nonsensical talk- baseline) Psy/Mental Status: alert, other (dementia as noted above) - Problem List & Annotations (1) Hiatal hernia with obstruction but no gangrene SNOMED Code(s): 66539158 Code(s): K44.0 - DIAPHRAGMATIC HERNIA WITH OBSTRUCTION, WITHOUT GANGRENE Status: Acute Priority: High Current Visit: Yes (2) Nausea and vomiting SNOMED Code(s): 67336933 Code(s): R11.2 - NAUSEA WITH VOMITING, UNSPECIFIED Status: Resolved Priority: High Current Visit: Yes Qualifiers: Vomiting type: unspecified Vomiting Intractability: intractable Qualified Code(s): R11.2 - Nausea with vomiting, unspecified (3) Dementia SNOMED Code(s): 78487530 Code(s): F03.90 - UNSPECIFIED DEMENTIA WITHOUT BEHAVIORAL DISTURBANCE Status: Chronic Priority: High Current Visit: Yes Qualifiers: Dementia type: Alzheimer's disease (4) PEG (percutaneous endoscopic gastrostomy) status SNOMED Code(s): 203550199, 258749248 Code(s): Z93.1 - GASTROSTOMY STATUS Status: Acute Priority: High Current Visit: Yes - Problem List Review Problem List Initiated/Reviewed/Updated: Yes - Plan Plan:: Incarcerated hiatal hernia with gastric outlet obstruction, status post laparoscopic reduction of incarcerated hiatal hernia; gastropexy with PEG tube placement. Stopped IV fluids and Consulted nutrition. -Eating/appetite is improved -Labs- CBC, BMP all stable -Peg site looks good; no s/s of infection or concerns Acute psychosis with aggitation and combative behaviors---acute episode much improved/resolved- dementia is at baseline now -Improved --- after 4mg haldol given IV x 1 a few days ago with no further need for haldol since that time -Dr. Jennings did speak with Psychiatrist, Dr Hughes who recommends Seroquel 6.25 BID and 50mg at HS; working well thus far without ADR. Chronic medical conditions: HTN- stable Hypothyroidism Hx of positive H Pylori Alzheimer Dementia Diverticulitis Other: DVT prophylax GI prophylax PT/OT when able to participate Patient is DNR/DNI LOS>96 hours, pending placement; likely NH placement early next week.
[2016-11-06] MEDS: traMADol 50 MG Tab PO SCH ×2 (08:16→20:17)
[2016-11-06] MEDS: Potassium Chloride 20 MEQ Tab.ER PO SCH ×2 (08:16→20:31)
[2016-11-06] MEDS: Levothyroxine 50 MCG Tab PO SCH (08:16)
[2016-11-06] MEDS: Oxybutynin 5 MG Tab.ER PO SCH (08:16)
[2016-11-06] MEDS: Famotidine 20 MG Tab PO SCH ×2 (08:16→20:19)
[2016-11-06] MEDS: Simethicone 80 MG Tab.Chew PO PRN (10:49)
[2016-11-06] MEDS: Donepezil 10 MG Tab PO SCH (20:19)
[2016-11-07] MEDS: QUEtiapine 25 MG Tab PO SCH ×4 (05:01→21:29)
[2016-11-07] MEDS: traMADol 50 MG Tab PO PRN ×2 (05:01→15:18)
[2016-11-07] MEDS: Famotidine 20 MG Tab PO SCH ×2 (09:21→19:59)
[2016-11-07] MEDS: Levothyroxine 50 MCG Tab PO SCH (09:21)
[2016-11-07] MEDS: Potassium Chloride 20 MEQ Tab.ER PO SCH ×3 (09:21→21:29)
[2016-11-07] MEDS: traMADol 50 MG Tab PO SCH ×3 (09:22→21:32)
[2016-11-07] MEDS: Oxybutynin 5 MG Tab.ER PO SCH (09:22)
--- NOTE | 2016-11-07 12:01 | PCM.PN ---
- General Info Date of Service: 11/07/16 Subjective Update: Unchanged from previous note, has been straight cathed for urinary retention. Functional Status: Reports: tolerating diet, urinating (intervention required as above) - Review of Systems General: Reports: No Symptoms HEENT: Reports: no symptoms Pulmonary: Reports: no symptoms Cardiovascular: Reports: No Symptoms Gastrointestinal: Reports: No symptoms Genitourinary: Reports: no symptoms Musculoskeletal: Reports: no symptoms Skin: Reports: no symptoms Neurological: Reports: No Symptoms Psychiatric: Reports: other (dementia) - Patient Data Vitals - most recent: Last Vital Signs Temp 36.2 C 11/07/16 04:52 Pulse 66 11/07/16 04:52 Resp 15 11/07/16 04:52 BP 118/56 L 11/07/16 04:52 Pulse Ox 97 11/07/16 04:52 Weight - most recent: 66.587 kg I&O - last 24 hours: Intake & Output 11/06/16 11/07/16 11/07/16 22:59 06:59 14:59 Intake Total 530 200 Output Total 1000 Balance -470 200 Lab Results last 24 hrs: Laboratory Results - last 24 hr 11/06/16 Range/Units 17:45 Urine Color Yellow (Yellow) Urine Appearance Slt cloudy H (Clear) Urine pH 5.5 (5.0-8.0) Ur Specific [place] > or = 1.030 (1.005-1.030) Urine Protein Negative (Negative) Urine Glucose (UA) Negative (Negative) Urine Ketones 2+ H (Negative) Urine Occult Blood Negative (Negative) Urine Nitrite Negative (Negative) Urine Bilirubin 1+ H (Negative) Urine Urobilinogen 0.2 (0.2-1.0) Ur Leukocyte Esterase Negative (Negative) Urine RBC 0-5 (0-5) /hpf Urine WBC 0-5 (0-5) /hpf Ur Epithelial Cells 0-5 (0-5) /hpf Urine Bacteria Few (FEW) /hpf Urine Mucus Few (FEW) /hpf Med Orders - Current: Current Medications Dextrose/Water (Dextrose 50% In Water) 50 ml IVPUSH ASDIRECTED PRN PRN Reason: Hypoglycemia Donepezil HCl (Aricept) 5 mg PO BEDTIME [facility] Last Admin: 11/06/16 20:19 Dose: 5 mg Famotidine (Pepcid) 20 mg PO BID [facility] Last Admin: 11/07/16 09:21 Dose: 20 mg Levothyroxine Sodium (Synthroid) 50 mcg PO DAILY [facility] Last Admin: 11/07/16 09:21 Dose: 50 mcg Oxybutynin Chloride (Oxybutynin Er) 5 mg PO DAILY [facility] Last Admin: 11/07/16 09:22 Dose: 5 mg Potassium Chloride (Klor-Con M20) 40 meq PO BID [facility] Last Admin: 11/07/16 09:21 Dose: 40 meq Quetiapine Fumarate (Seroquel) 50 mg PO BEDTIME [facility] Last Admin: 11/06/16 20:19 Dose: 50 mg Quetiapine Fumarate (Seroquel) 6.25 mg PO BIDDIURETIC [facility] Last Admin: 11/07/16 05:01 Dose: 6.25 mg Simethicone (Simethicone) 80 mg PO Q6H PRN PRN Reason: gas/pain Last Admin: 11/06/16 10:49 Dose: 80 mg Tramadol HCl (Ultram) 50 mg PO BID [facility] Last Admin: 11/07/16 09:22 Dose: 50 mg Tramadol HCl (Ultram) 50 - 100 mg PO Q6H PRN PRN Reason: Pain Last Admin: 11/07/16 05:01 Dose: 100 mg Discontinued Medications Benzocaine/Menthol (Cepacol Sore Throat) 1 lozenge MUCMEM Q1H PRN PRN Reason: Sore Throat Bupivacaine HCl/Epinephrine Bitart (Marcaine 0.5%/Epinephrine 1:200,000) Confirm Administered Dose 50 ml .ROUTE .STK-MED ONE Stop: 10/27/16 14:56 Last Admin: 10/27/16 15:47 Dose: 20 ml Ertapenem (Invanz) Confirm Administered Dose 1 gm .ROUTE .STK-MED ONE Stop: 10/27/16 15:57 Fentanyl (Sublimaze) Confirm Administered Dose 100 mcg .ROUTE .STK-MED ONE Stop: 10/27/16 15:03 Fentanyl (Sublimaze) 25 mcg IVPUSH Q1H PRN PRN Reason: Pain (severe 7-10) Stop: 10/28/16 17:11 Last Admin: 10/28/16 12:51 Dose: 25 mcg Haloperidol Lactate (Haldol) 2 mg IVPUSH Q8H PRN PRN Reason: Agitation Last Admin: 10/29/16 10:05 Dose: 2 mg Haloperidol Lactate (Haldol) 3 mg IVPUSH ONETIME ONE Stop: 10/29/16 12:50 Last Admin: 10/29/16 13:04 Dose: 3 mg Haloperidol Lactate (Haldol) 2 mg IVPUSH Q8H PRN PRN Reason: restlessness Haloperidol Lactate (Haldol) 1 mg IVPUSH NOW STA Stop: 11/04/16 13:30 Last Admin: 11/04/16 13:37 Dose: 1 mg Haloperidol Lactate (Haldol) 3 mg IVPUSH ONETIME [facility] Stop: 11/04/16 13:46 Last Admin: 11/04/16 13:50 Dose: 3 mg Hydromorphone HCl (Dilaudid) Confirm Administered Dose 1 mg .ROUTE .STK-MED ONE Stop: 10/27/16 15:57 Hydromorphone HCl (Dilaudid) 1 mg IVPUSH ONETIME ONE Stop: 10/30/16 08:05 Last Admin: 10/30/16 08:18 Dose: 1 mg Hydromorphone HCl (Dilaudid) 0.5 mg IVPUSH Q4H PRN PRN Reason: Pain Last Admin: 11/02/16 04:25 Dose: 0.5 mg Sodium Chloride (Normal Saline) 1,000 mls @ 125 mls/hr IV ASDIRECTED [facility] Last Admin: 10/27/16 10:47 Dose: 125 mls/hr Lidocaine HCl (Xylocaine-Mpf 1%) Confirm Administered Dose 6 mls @ as directed .ROUTE .STK-MED ONE Stop: 10/27/16 15:57 Lactated Ringer's (Ringers, Lactated) 1,000 mls @ 100 mls/hr IV ASDIRECTED [facility] Last Admin: 10/28/16 04:04 Dose: 100 mls/hr Potassium Chloride 40 meq/ (Lactated Ringer's) 1,020 mls @ 102 mls/hr IV ASDIRECTED [facility] Stop: 10/29/16 01:00 Last Admin: 10/28/16 14:35 Dose: 102 mls/hr Potassium Cl/Dextrose/Lact Ringer's (D5 Lr With 20 Meq Kcl) 1,000 mls @ 100 mls /hr IV ASDIRECTED [facility] Last Admin: 11/01/16 14:02 Dose: 100 mls/hr Magnesium Sulfate 2 gm/ Premix 50 mls @ 25 mls/hr IV ONETIME ONE Stop: 10/30/16 12:03 Last Admin: 10/30/16 10:34 Dose: 25 mls/hr Insulin Aspart (Novolog) 0 unit SUBCUT Q6H [facility] PRN Reason: Protocol Last Admin: 10/31/16 13:24 Dose: Not Given Iopamidol (Isovue-300 (61%)) 100 ml IVPUSH ONETIME ONE Stop: 10/27/16 11:58 Last Admin: 10/27/16 12:03 Dose: 100 ml Lidocaine HCl (Xylocaine 1%) Confirm Administered Dose 50 ml .ROUTE .STK-MED ONE Stop: 10/27/16 14:56 Last Admin: 10/27/16 15:47 Dose: 20 ml Lorazepam (Ativan) 0.5 mg IVPUSH Q8H PRN PRN Reason: Agitation Last Admin: 10/29/16 23:47 Dose: 0.5 mg Lorazepam (Ativan) 1 mg IVPUSH ONETIME ONE Stop: 10/29/16 12:50 Last Admin: 10/29/16 13:04 Dose: 1 mg Lorazepam (Ativan) 0.5 mg IM Q8H PRN PRN Reason: restlessness Last Admin: 10/31/16 23:18 Dose: 0.5 mg Lorazepam (Ativan) 0.5 mg IVPUSH Q8H PRN PRN Reason: restlessnes Metoclopramide HCl (Reglan) 10 mg IVPUSH ONETIME ONE Stop: 10/27/16 13:39 Last Admin: 10/27/16 13:52 Dose: 10 mg Morphine Sulfate (Morphine 10 Mg/0.5 Ml Oral Syringe) 2.5 mg PO Q6H PRN PRN Reason: Pain Last Admin: 11/01/16 06:52 Dose: 2.5 mg Naloxone HCl (Narcan) Confirm Administered Dose 0.4 mg .ROUTE .STK-MED ONE Stop: 10/27/16 16:57 Ondansetron HCl (Zofran) 4 mg IVPUSH ONETIME ONE Stop: 10/27/16 10:32 Last Admin: 10/27/16 10:47 Dose: 4 mg Ondansetron HCl (Zofran) 4 mg IVPUSH Q6H PRN PRN Reason: Nausea/Vomiting Pantoprazole Sodium (Protonix Iv) 40 mg IVPUSH DAILY [facility] Last Admin: 10/29/16 10:05 Dose: 40 mg Propofol (Diprivan 20 Ml) Confirm Administered Dose 200 mg .ROUTE .STK-MED ONE Stop: 10/27/16 15:03 Quetiapine Fumarate (Seroquel) 50 mg PO ONETIME ONE Stop: 10/29/16 11:45 Last Admin: 10/29/16 12:21 Dose: 50 mg Sodium Chloride (Saline Flush) 10 ml FLUSH ASDIRECTED PRN PRN Reason: Keep Vein Open Last Admin: 10/27/16 10:50 Dose: 10 ml Sodium Chloride (Saline Flush) 10 ml FLUSH ONETIME PRN PRN Reason: IV FLUSH Last Admin: 10/27/16 12:03 Dose: 10 ml Succinylcholine Chloride (Succinylcholine In Ns Pf) Confirm Administered Dose 100 mg .ROUTE .STK-MED ONE Stop: 10/27/16 15:57 Tramadol HCl (Ultram) 50 mg PO BID PRN PRN Reason: Pain Last Admin: 11/01/16 19:43 Dose: 50 mg Tramadol HCl (Ultram) 50 mg PO BID ONE Stop: 11/02/16 09:01 Tramadol HCl (Ultram) 50 mg PO Q6H PRN PRN Reason: Pain Last Admin: 11/06/16 03:08 Dose: 50 mg - Exam Quality Assessment: DVT prophylaxis General: alert, oriented, cooperative, no acute distress HEENT: Pupils equal, Pupils reactive Neck: supple, trachea midline Lungs: Normal respiratory effort Cardiovascular: Regular Rate, Regular Rhythm Abdomen: bowel sounds present, soft, no tenderness, no distension (Female) Exam: Deferred Back Exam: normal inspection Extremities: normal pulses Skin: warm Wound/Incisions: dressing dry and intact (PEG site clean) Neurological: no new focal deficit Psy/Mental Status: alert - Problem List Review Problem List Initiated/Reviewed/Updated: Yes - Plan Plan:: Incarcerated hiatal hernia with gastric outlet obstruction, status post laparoscopic reduction of incarcerated hiatal hernia; gastropexy with PEG tube placement. Stopped IV fluids and Consulted nutrition. -Eating/appetite is improved -Labs- CBC, BMP all stable -Peg site looks good; no s/s of infection or concerns Acute psychosis with aggitation and combative behaviors---acute episode much improved/resolved- dementia is at baseline now -Improved --- after 4mg haldol given IV x 1 a few days ago with no further need for haldol since that time -Dr. Jennings did speak with Psychiatrist, Dr Hughes who recommends Seroquel 6.25 BID and 50mg at HS; working well thus far without ADR. Chronic medical conditions: HTN- stable Hypothyroidism Hx of positive H Pylori Alzheimer Dementia Diverticulitis Other: DVT prophylax GI prophylax PT/OT when able to participate Patient is DNR/DNI LOS>96 hours, pending placement; likely NH placement early next week.
[2016-11-07] MEDS ORDERED: Hypromellose 0.5% Ophth Soln 15 ML Bottle EYEBOTH PRN (12:25)
[2016-11-07] MEDS: Donepezil 10 MG Tab PO SCH ×2 (19:56→21:28)
[2016-11-08] MEDS: traMADol 50 MG Tab PO PRN ×2 (00:34→17:38)
[2016-11-08] MEDS: QUEtiapine 25 MG Tab PO SCH ×3 (05:21→20:31)
[2016-11-08] MEDS: traMADol 50 MG Tab PO SCH ×2 (09:01→20:37)
[2016-11-08] MEDS: Levothyroxine 50 MCG Tab PO SCH (09:02)
[2016-11-08] MEDS: Famotidine 20 MG Tab PO SCH ×2 (09:02→20:31)
[2016-11-08] MEDS: Potassium Chloride 20 MEQ Tab.ER PO SCH ×2 (09:03→20:31)
--- NOTE | 2016-11-08 09:18 | PCM.PN ---
- General Info Date of Service: 11/08/16 Functional Status: Reports: urinating - Review of Systems General: Reports: No Symptoms HEENT: Reports: no symptoms Pulmonary: Reports: no symptoms Cardiovascular: Reports: No Symptoms Gastrointestinal: Reports: No symptoms Genitourinary: Reports: no symptoms Musculoskeletal: Reports: no symptoms Skin: Reports: no symptoms Neurological: Reports: No Symptoms Psychiatric: Reports: no symptoms - Patient Data Vitals - most recent: Last Vital Signs Temp 36.6 C 11/08/16 07:27 Pulse 66 11/08/16 07:27 Resp 16 11/08/16 07:27 BP 109/67 11/08/16 07:27 Pulse Ox 96 11/08/16 07:27 Weight - most recent: 67.767 kg I&O - last 24 hours: Intake & Output 11/07/16 11/08/16 11/08/16 22:59 06:59 14:59 Intake Total 900 150 Output Total 300 550 Balance 600 -400 Med Orders - Current: Current Medications Artificial Tears (Isopto Tears 0.5% Ophth Soln) 0 ml EYEBOTH TID PRN PRN Reason: Dry Eyes Dextrose/Water (Dextrose 50% In Water) 50 ml IVPUSH ASDIRECTED PRN PRN Reason: Hypoglycemia Donepezil HCl (Aricept) 5 mg PO BEDTIME [facility] Last Admin: 11/07/16 21:28 Dose: Not Given Famotidine (Pepcid) 20 mg PO BID [facility] Last Admin: 11/08/16 09:02 Dose: 20 mg Levothyroxine Sodium (Synthroid) 50 mcg PO DAILY [facility] Last Admin: 11/08/16 09:02 Dose: 50 mcg Oxybutynin Chloride (Oxybutynin Er) 5 mg PO DAILY [facility] Last Admin: 11/07/16 09:22 Dose: 5 mg Potassium Chloride (Klor-Con M20) 40 meq PO BID [facility] Last Admin: 11/08/16 09:03 Dose: 40 meq Quetiapine Fumarate (Seroquel) 50 mg PO BEDTIME [facility] Last Admin: 11/07/16 21:29 Dose: Not Given Quetiapine Fumarate (Seroquel) 6.25 mg PO BIDDIURETIC [facility] Last Admin: 11/08/16 05:21 Dose: 6.25 mg Simethicone (Simethicone) 80 mg PO Q6H PRN PRN Reason: gas/pain Last Admin: 11/06/16 10:49 Dose: 80 mg Tramadol HCl (Ultram) 50 mg PO BID [facility] Last Admin: 11/08/16 09:01 Dose: 50 mg Tramadol HCl (Ultram) 50 - 100 mg PO Q6H PRN PRN Reason: Pain Last Admin: 11/08/16 00:34 Dose: 50 mg Discontinued Medications Benzocaine/Menthol (Cepacol Sore Throat) 1 lozenge MUCMEM Q1H PRN PRN Reason: Sore Throat Bupivacaine HCl/Epinephrine Bitart (Marcaine 0.5%/Epinephrine 1:200,000) Confirm Administered Dose 50 ml .ROUTE .STK-MED ONE Stop: 10/27/16 14:56 Last Admin: 10/27/16 15:47 Dose: 20 ml Ertapenem (Invanz) Confirm Administered Dose 1 gm .ROUTE .STK-MED ONE Stop: 10/27/16 15:57 Fentanyl (Sublimaze) Confirm Administered Dose 100 mcg .ROUTE .STK-MED ONE Stop: 10/27/16 15:03 Fentanyl (Sublimaze) 25 mcg IVPUSH Q1H PRN PRN Reason: Pain (severe 7-10) Stop: 10/28/16 17:11 Last Admin: 10/28/16 12:51 Dose: 25 mcg Haloperidol Lactate (Haldol) 2 mg IVPUSH Q8H PRN PRN Reason: Agitation Last Admin: 10/29/16 10:05 Dose: 2 mg Haloperidol Lactate (Haldol) 3 mg IVPUSH ONETIME ONE Stop: 10/29/16 12:50 Last Admin: 10/29/16 13:04 Dose: 3 mg Haloperidol Lactate (Haldol) 2 mg IVPUSH Q8H PRN PRN Reason: restlessness Haloperidol Lactate (Haldol) 1 mg IVPUSH NOW STA Stop: 11/04/16 13:30 Last Admin: 11/04/16 13:37 Dose: 1 mg Haloperidol Lactate (Haldol) 3 mg IVPUSH ONETIME STA Stop: 11/04/16 13:46 Last Admin: 11/04/16 13:50 Dose: 3 mg Hydromorphone HCl (Dilaudid) Confirm Administered Dose 1 mg .ROUTE .STK-MED ONE Stop: 10/27/16 15:57 Hydromorphone HCl (Dilaudid) 1 mg IVPUSH ONETIME ONE Stop: 10/30/16 08:05 Last Admin: 10/30/16 08:18 Dose: 1 mg Hydromorphone HCl (Dilaudid) 0.5 mg IVPUSH Q4H PRN PRN Reason: Pain Last Admin: 11/02/16 04:25 Dose: 0.5 mg Sodium Chloride (Normal Saline) 1,000 mls @ 125 mls/hr IV ASDIRECTED [facility] Last Admin: 10/27/16 10:47 Dose: 125 mls/hr Lidocaine HCl (Xylocaine-Mpf 1%) Confirm Administered Dose 6 mls @ as directed .ROUTE .STK-MED ONE Stop: 10/27/16 15:57 Lactated Ringer's (Ringers, Lactated) 1,000 mls @ 100 [facility]ls[facility] Last Admin: 10/28/16 04:04 Dose: 100 mls/hr Potassium Chloride 40 meq/ (Lactated Ringer's) 1,020 mls [facility] Stop: 10/29/16 01:00 Last Admin: 10/28/16 14:35 Dose: 102 mls/hr Potassium Cl/Dextrose/Lact Ringer's (D5 Lr With 20 Meq Kcl) 1,000 mls @ 100 mls /hr IV ASDIRECTED [facility] Last Admin: 11/01/16 14:02 Dose: 100 mls/hr Magnesium Sulfate 2 gm/ Premix 50 mls @ 25 mls/hr IV ONETIME ONE Stop: 10/30/16 12:03 Last Admin: 10/30/16 10:34 Dose: 25 mls/hr Insulin Aspart (Novolog) 0 unit SUBCUT Q6H [facility] PRN Reason: Protocol Last Admin: 10/31/16 13:24 Dose: Not Given Iopamidol (Isovue-300 (61%)) 100 ml IVPUSH ONETIME ONE Stop: 10/27/16 11:58 Last Admin: 10/27/16 12:03 Dose: 100 ml Lidocaine HCl (Xylocaine 1%) Confirm Administered Dose 50 ml .ROUTE .STK-MED ONE Stop: 10/27/16 14:56 Last Admin: 10/27/16 15:47 Dose: 20 ml Lorazepam (Ativan) 0.5 mg IVPUSH Q8H PRN PRN Reason: Agitation Last Admin: 10/29/16 23:47 Dose: 0.5 mg Lorazepam (Ativan) 1 mg IVPUSH ONETIME ONE Stop: 10/29/16 12:50 Last Admin: 10/29/16 13:04 Dose: 1 mg Lorazepam (Ativan) 0.5 mg IM Q8H PRN PRN Reason: restlessness Last Admin: 10/31/16 23:18 Dose: 0.5 mg Lorazepam (Ativan) 0.5 mg IVPUSH Q8H PRN PRN Reason: restlessnes Metoclopramide HCl (Reglan) 10 mg IVPUSH ONETIME ONE Stop: 10/27/16 13:39 Last Admin: 10/27/16 13:52 Dose: 10 mg Morphine Sulfate (Morphine 10 Mg/0.5 Ml Oral Syringe) 2.5 mg PO Q6H PRN PRN Reason: Pain Last Admin: 11/01/16 06:52 Dose: 2.5 mg Naloxone HCl (Narcan) Confirm Administered Dose 0.4 mg .ROUTE .STK-MED ONE Stop: 10/27/16 16:57 Ondansetron HCl (Zofran) 4 mg IVPUSH ONETIME ONE Stop: 10/27/16 10:32 Last Admin: 10/27/16 10:47 Dose: 4 mg Ondansetron HCl (Zofran) 4 mg IVPUSH Q6H PRN PRN Reason: Nausea/Vomiting Pantoprazole Sodium (Protonix Iv) 40 mg IVPUSH DAILY [facility] Last Admin: 10/29/16 10:05 Dose: 40 mg Propofol (Diprivan 20 Ml) Confirm Administered Dose 200 mg .ROUTE .STK-MED ONE Stop: 10/27/16 15:03 Quetiapine Fumarate (Seroquel) 50 mg PO ONETIME ONE Stop: 10/29/16 11:45 Last Admin: 10/29/16 12:21 Dose: 50 mg Sodium Chloride (Saline Flush) 10 ml FLUSH ASDIRECTED PRN PRN Reason: Keep Vein Open Last Admin: 10/27/16 10:50 Dose: 10 ml Sodium Chloride (Saline Flush) 10 ml FLUSH ONETIME PRN PRN Reason: IV FLUSH Last Admin: 10/27/16 12:03 Dose: 10 ml Succinylcholine Chloride (Succinylcholine In Ns Pf) Confirm Administered Dose 100 mg .ROUTE .STK-MED ONE Stop: 10/27/16 15:57 Tramadol HCl (Ultram) 50 mg PO BID PRN PRN Reason: Pain Last Admin: 11/01/16 19:43 Dose: 50 mg Tramadol HCl (Ultram) 50 mg PO BID ONE Stop: 11/02/16 09:01 Tramadol HCl (Ultram) 50 mg PO Q6H PRN PRN Reason: Pain Last Admin: 11/06/16 03:08 Dose: 50 mg - Exam Quality Assessment: DVT prophylaxis General: alert, oriented HEENT: Pupils equal, Pupils reactive Neck: supple, trachea midline Lungs: Normal respiratory effort Cardiovascular: Regular Rate, Regular Rhythm Abdomen: bowel sounds present, soft, no tenderness, no distension (Female) Exam: Deferred Back Exam: normal inspection Extremities: normal pulses Skin: warm Wound/Incisions: healing well Neurological: no new focal deficit Psy/Mental Status: alert - Problem List Review Problem List Initiated/Reviewed/Updated: Yes - My Orders Last 24 Hours: My Active Orders 11/07/16 12:25 Hypromellose [Isopto Tears 0.5% Ophth Soln] 0 ml EYEBOTH TID PRN 11/08/16 09:16 BASIC METABOLIC PANEL,BMP [CHEM] Routine - Plan Plan:: Incarcerated hiatal hernia with gastric outlet obstruction, status post laparoscopic reduction of incarcerated hiatal hernia; gastropexy with PEG tube placement. Stopped IV fluids and Consulted nutrition. -Eating/appetite is improved -Labs- CBC, BMP all stable -Peg site looks good; no s/s of infection or concerns Acute psychosis with aggitation and combative behaviors---acute episode much improved/resolved- dementia is at baseline now -Improved --- after 4mg haldol given IV x 1 a few days ago with no further need for haldol since that time -Dr. Jennings did speak with Psychiatrist, Dr Hughes who recommends Seroquel 6.25 BID and 50mg at HS; working well thus far without ADR. Chronic medical conditions: HTN- stable Hypothyroidism Hx of positive H Pylori Alzheimer Dementia Diverticulitis Other: DVT prophylax GI prophylax PT/OT when able to participate Patient is DNR/DNI LOS>96 hours, pending placement; likely NH placement early next week.
[2016-11-08] MEDS ORDERED: Magnesium Hydroxide 400 MG/5 ML Susp 30 ML Cup PO ONE (16:30)
[2016-11-08] MEDS: Simethicone 80 MG Tab.Chew PO PRN (19:44)
[2016-11-08] MEDS: Donepezil 10 MG Tab PO SCH (20:32)
[2016-11-09] MEDS ORDERED: Magnesium Citrate Solution 296 ML Bottle PO ONE (08:00)
[2016-11-09] MEDS: Levothyroxine 50 MCG Tab PO SCH (08:18)
[2016-11-09] MEDS: QUEtiapine 25 MG Tab PO SCH ×3 (08:18→20:29)
[2016-11-09] MEDS: Potassium Chloride 20 MEQ Tab.ER PO SCH ×2 (08:19→20:29)
[2016-11-09] MEDS: Famotidine 20 MG Tab PO SCH ×2 (08:19→20:30)
[2016-11-09] MEDS: traMADol 50 MG Tab PO SCH ×2 (08:19→20:30)
--- NOTE | 2016-11-09 08:57 | PCM.PN ---
- General Info Date of Service: 11/09/16 Admission Dx/Problem (Free Text): Berna is seen this morning, by myself accompanied by nursing. She appears comfortable, states "no" when asked if in pain. She slept through the night last night per nursing reports. SW is continue to work on placement for her. Behaviors have been much better the past few days, no aggitation or aggression. VSS and labs stable, medically stable. Functional Status: Reports: pain controlled, ambulating, urinating. Denies: new symptoms - Review of Systems General: Reports: No Symptoms HEENT: Reports: no symptoms Pulmonary: Reports: no symptoms Cardiovascular: Reports: No Symptoms Gastrointestinal: Reports: No symptoms Genitourinary: Reports: no symptoms Musculoskeletal: Reports: no symptoms Skin: Reports: no symptoms Neurological: Reports: Confusion (pleasantly confused- end stage dementia) Psychiatric: Reports: confusion (pleasantly confused as above; no aggression today) - Patient Data Vitals - most recent: Last Vital Signs Temp 97.3 F 11/09/16 08:29 Pulse 54 L 11/09/16 08:29 Resp 16 11/09/16 08:29 BP 101/49 L 11/09/16 08:29 Pulse Ox 96 11/09/16 08:29 Weight - most recent: 147 lb 8 oz I&O - last 24 hours: Intake & Output 11/08/16 11/09/16 11/09/16 22:59 06:59 14:59 Intake Total 440 250 Output Total 575 Balance -135 250 Lab Results last 24 hrs: Laboratory Results - last 24 hr 11/08/16 11/09/16 11/09/16 Range/Units 09:26 06:50 06:50 WBC 3.76 L (3.98-10.04) K/mm3 RBC 4.40 (3.98-5.22) M/mm3 Hgb 12.8 (11.2-15.7) gm/L Hct 39.7 (34.1-44.9) % MCV 90.2 (79.4-94.8) fl MCH 29.1 (25.6-32.2) pg MCHC 32.2 (32.2-35.5) g/dl RDW Std Deviation 46.2 (36.4-46.3) fL Plt Count 359 (182-369) K/mm3 MPV 9.3 L (9.4-12.3) fl Neut % (Auto) 40.6 (34.0-71.1) % Lymph % (Auto) 35.1 (19.3-51.7) % Bowman % (Auto) 17.6 H (4.7-12.5) % Eos % (Auto) 5.6 (0.7-5.8) Baso % (Auto) 1.1 (0.1-1.2) % Neut # (Auto) 1.53 L (1.56-6.13) K/mm3 Lymph # (Auto) 1.32 (1.18-3.74) K/mm3 Bowman # (Auto) 0.66 H (0.24-0.36) K/mm3 Eos # (Auto) 0.21 (0.04-0.36) K/mm3 Baso # (Auto) 0.04 (0.01-0.08) K/mm3 Manual Slide Review Normal smear Sodium 135 L 139 (136-145) mEq/L Potassium 4.3 5.0 (3.5-5.1) mEq/L Chloride 101 106 (98-107) mEq/L Carbon Dioxide 26 27 (21-32) mEq/L Anion Gap 12.3 11.0 (5-15) BUN 15 12 (7-18) mg/dL Creatinine 1.3 H 1.2 H (0.55-1.02) mg/dL Est Cr Clr Drug Dosing 27.30 29.57 mL/min Estimated GFR (MDRD) 39 43 (>60) mL/min BUN/Creatinine Ratio 11.5 L 10.0 L (14-18) Glucose 131 H 106 (83-115) mg/dL Calcium 9.4 9.5 (8.5-10.1) mg/dL Magnesium 2.3 (1.8-2.4) mg/dl Med Orders - Current: Current Medications Artificial Tears (Isopto Tears 0.5% Ophth Soln) 0 ml EYEBOTH TID PRN PRN Reason: Dry Eyes Dextrose/Water (Dextrose 50% In Water) 50 ml IVPUSH ASDIRECTED PRN PRN Reason: Hypoglycemia Donepezil HCl (Aricept) 5 mg PO BEDTIME [facility] Last Admin: 11/08/16 20:32 Dose: 5 mg Famotidine (Pepcid) 20 mg PO BID [facility] Last Admin: 11/09/16 08:19 Dose: 20 mg Levothyroxine Sodium (Synthroid) 50 mcg PO DAILY [facility] Last Admin: 11/09/16 08:18 Dose: 50 mcg Oxybutynin Chloride (Oxybutynin Er) 5 mg PO DAILY [facility] Last Admin: 11/07/16 09:22 Dose: 5 mg Potassium Chloride (Klor-Con M20) 40 meq PO BID [facility] Last Admin: 11/09/16 08:19 Dose: Not Given Quetiapine Fumarate (Seroquel) 50 mg PO BEDTIME [facility] Last Admin: 11/08/16 20:31 Dose: 50 mg Quetiapine Fumarate (Seroquel) 6.25 mg PO BIDDIURETIC [facility] Last Admin: 11/09/16 08:18 Dose: 6.25 mg Simethicone (Simethicone) 80 mg PO Q6H PRN PRN Reason: gas/pain Last Admin: 11/08/16 19:44 Dose: 80 mg Tramadol HCl (Ultram) 50 mg PO BID [facility] Last Admin: 11/09/16 08:19 Dose: 50 mg Tramadol HCl (Ultram) 50 - 100 mg PO Q6H PRN PRN Reason: Pain Last Admin: 11/08/16 17:38 Dose: 50 mg Discontinued Medications Benzocaine/Menthol (Cepacol Sore Throat) 1 lozenge MUCMEM Q1H PRN PRN Reason: Sore Throat Bupivacaine HCl/Epinephrine Bitart (Marcaine 0.5%/Epinephrine 1:200,000) Confirm Administered Dose 50 ml .ROUTE .STK-MED ONE Stop: 10/27/16 14:56 Last Admin: 10/27/16 15:47 Dose: 20 ml Ertapenem (Invanz) Confirm Administered Dose 1 gm .ROUTE .STK-MED ONE Stop: 10/27/16 15:57 Fentanyl (Sublimaze) Confirm Administered Dose 100 mcg .ROUTE .STK-MED ONE Stop: 10/27/16 15:03 Fentanyl (Sublimaze) 25 mcg IVPUSH Q1H PRN PRN Reason: Pain (severe 7-10) Stop: 10/28/16 17:11 Last Admin: 10/28/16 12:51 Dose: 25 mcg Haloperidol Lactate (Haldol) 2 mg IVPUSH Q8H PRN PRN Reason: Agitation Last Admin: 10/29/16 10:05 Dose: 2 mg Haloperidol Lactate (Haldol) 3 mg IVPUSH ONETIME ONE Stop: 10/29/16 12:50 Last Admin: 10/29/16 13:04 Dose: 3 mg Haloperidol Lactate (Haldol) 2 mg IVPUSH Q8H PRN PRN Reason: restlessness Haloperidol Lactate (Haldol) 1 mg IVPUSH NOW STA Stop: 11/04/16 13:30 Last Admin: 11/04/16 13:37 Dose: 1 mg Haloperidol Lactate (Haldol) 3 mg IVPUSH ONETIME [facility] Stop: 11/04/16 13:46 Last Admin: 11/04/16 13:50 Dose: 3 mg Hydromorphone HCl (Dilaudid) Confirm Administered Dose 1 mg .ROUTE .STK-MED ONE Stop: 10/27/16 15:57 Hydromorphone HCl (Dilaudid) 1 mg IVPUSH ONETIME ONE Stop: 10/30/16 08:05 Last Admin: 10/30/16 08:18 Dose: 1 mg Hydromorphone HCl (Dilaudid) 0.5 mg IVPUSH Q4H PRN PRN Reason: Pain Last Admin: 11/02/16 04:25 Dose: 0.5 mg Sodium Chloride (Normal Saline) 1,000 mls @ 125 mls/hr IV ASDIRECTED [facility] Last Admin: 10/27/16 10:47 Dose: 125 mls/hr Lidocaine HCl (Xylocaine-Mpf 1%) Confirm Administered Dose 6 mls @ as directed .ROUTE .STK-MED ONE Stop: 10/27/16 15:57 Lactated Ringer's (Ringers, Lactated) 1,000 mls @ 100 mls/hr IV ASDIRECTED [facility] Last Admin: 10/28/16 04:04 Dose: 100 mls/hr Potassium Chloride 40 meq/ (Lactated Ringer's) 1,020 mls @ 102 mls/hr IV ASDIRECTED [facility] Stop: 10/29/16 01:00 Last Admin: 10/28/16 14:35 Dose: 102 mls/hr Potassium Cl/Dextrose/Lact Ringer's (D5 Lr With 20 Meq Kcl) 1,000 mls @ 100 mls /hr IV ASDIRECTED [facility] Last Admin: 11/01/16 14:02 Dose: 100 mls/hr Magnesium Sulfate 2 gm/ Premix 50 mls @ 25 mls/hr IV ONETIME ONE Stop: 10/30/16 12:03 Last Admin: 10/30/16 10:34 Dose: 25 mls/hr Insulin Aspart (Novolog) 0 unit SUBCUT Q6H [facility] PRN Reason: Protocol Last Admin: 10/31/16 13:24 Dose: Not Given Iopamidol (Isovue-300 (61%)) 100 ml IVPUSH ONETIME ONE Stop: 10/27/16 11:58 Last Admin: 10/27/16 12:03 Dose: 100 ml Lidocaine HCl (Xylocaine 1%) Confirm Administered Dose 50 ml .ROUTE .STK-MED ONE Stop: 10/27/16 14:56 Last Admin: 10/27/16 15:47 Dose: 20 ml Lorazepam (Ativan) 0.5 mg IVPUSH Q8H PRN PRN Reason: Agitation Last Admin: 10/29/16 23:47 Dose: 0.5 mg Lorazepam (Ativan) 1 mg IVPUSH ONETIME ONE Stop: 10/29/16 12:50 Last Admin: 10/29/16 13:04 Dose: 1 mg Lorazepam (Ativan) 0.5 mg IM Q8H PRN PRN Reason: restlessness Last Admin: 10/31/16 23:18 Dose: 0.5 mg Lorazepam (Ativan) 0.5 mg IVPUSH Q8H PRN PRN Reason: restlessnes Magnesium Citrate (Citrate Of Magnesia) 296 ml PO ONETIME ONE Stop: 11/09/16 08:01 Last Admin: 11/09/16 08:20 Dose: 296 ml Magnesium Hydroxide (Milk Of Magnesia) 30 ml PO ONETIME ONE Stop: 11/08/16 16:31 Last Admin: 11/08/16 17:39 Dose: 30 ml Metoclopramide HCl (Reglan) 10 mg IVPUSH ONETIME ONE Stop: 10/27/16 13:39 Last Admin: 10/27/16 13:52 Dose: 10 mg Morphine Sulfate (Morphine 10 Mg/0.5 Ml Oral Syringe) 2.5 mg PO Q6H PRN PRN Reason: Pain Last Admin: 11/01/16 06:52 Dose: 2.5 mg Naloxone HCl (Narcan) Confirm Administered Dose 0.4 mg .ROUTE .STK-MED ONE Stop: 10/27/16 16:57 Ondansetron HCl (Zofran) 4 mg IVPUSH ONETIME ONE Stop: 10/27/16 10:32 Last Admin: 10/27/16 10:47 Dose: 4 mg Ondansetron HCl (Zofran) 4 mg IVPUSH Q6H PRN PRN Reason: Nausea/Vomiting Pantoprazole Sodium (Protonix Iv) 40 mg IVPUSH DAILY [facility] Last Admin: 10/29/16 10:05 Dose: 40 mg Propofol (Diprivan 20 Ml) Confirm Administered Dose 200 mg .ROUTE .STK-MED ONE Stop: 10/27/16 15:03 Quetiapine Fumarate (Seroquel) 50 mg PO ONETIME ONE Stop: 10/29/16 11:45 Last Admin: 10/29/16 12:21 Dose: 50 mg Sodium Chloride (Saline Flush) 10 ml FLUSH ASDIRECTED PRN PRN Reason: Keep Vein Open Last Admin: 10/27/16 10:50 Dose: 10 ml Sodium Chloride (Saline Flush) 10 ml FLUSH ONETIME PRN PRN Reason: IV FLUSH Last Admin: 10/27/16 12:03 Dose: 10 ml Succinylcholine Chloride (Succinylcholine In Ns Pf) Confirm Administered Dose 100 mg .ROUTE .STK-MED ONE Stop: 10/27/16 15:57 Tramadol HCl (Ultram) 50 mg PO BID PRN PRN Reason: Pain Last Admin: 11/01/16 19:43 Dose: 50 mg Tramadol HCl (Ultram) 50 mg PO BID ONE Stop: 11/02/16 09:01 Tramadol HCl (Ultram) 50 mg PO Q6H PRN PRN Reason: Pain Last Admin: 11/06/16 03:08 Dose: 50 mg - Exam Quality Assessment: DVT prophylaxis General: alert, cooperative, no acute distress HEENT: Pupils equal, Pupils reactive, EOMI, Mucous membr. moist/pink Neck: supple Lungs: Clear to auscultation, Normal respiratory effort, Decreased breath sounds (to bases) Cardiovascular: Regular Rate, Regular Rhythm, No Murmurs Abdomen: bowel sounds present, soft, no tenderness, no distension, other (PEG site WNL, no s/s of infection, dressing CDI) (Female) Exam: Deferred Back Exam: normal inspection Extremities: no edema, no calf tenderness Peripheral Pulses: 1+: dorsalis pedis (L), dorsalis pedis (R) Skin: warm, dry Psy/Mental Status: alert, other (pleasantly confused, no aggression/aggitation today, anxiety minimal to none ) - Problem List & Annotations (1) Hiatal hernia with obstruction but no gangrene SNOMED Code(s): 27700518 Code(s): K44.0 - DIAPHRAGMATIC HERNIA WITH OBSTRUCTION, WITHOUT GANGRENE Status: Acute Priority: High Current Visit: Yes (2) Nausea and vomiting SNOMED Code(s): 19417761 Code(s): R11.2 - NAUSEA WITH VOMITING, UNSPECIFIED Status: Resolved Priority: High Current Visit: Yes Qualifiers: Vomiting type: unspecified Vomiting Intractability: intractable Qualified Code(s): R11.2 - Nausea with vomiting, unspecified (3) Dementia SNOMED Code(s): 81559211 Code(s): F03.90 - UNSPECIFIED DEMENTIA WITHOUT BEHAVIORAL DISTURBANCE Status: Chronic Priority: High Current Visit: Yes Qualifiers: Dementia type: Alzheimer's disease (4) PEG (percutaneous endoscopic gastrostomy) status SNOMED Code(s): 706485309, 085588028 Code(s): Z93.1 - GASTROSTOMY STATUS Status: Acute Priority: High Current Visit: Yes - Problem List Review Problem List Initiated/Reviewed/Updated: Yes - Plan Plan:: Incarcerated hiatal hernia with gastric outlet obstruction, status post laparoscopic reduction of incarcerated hiatal hernia; gastropexy with PEG tube placement. Stopped IV fluids and Consulted nutrition. -Eating/appetite is improved -Labs- CBC, BMP all stable; VSS- afebrile -Peg site looks good; no s/s of infection or concerns Acute psychosis with aggitation and combative behaviors---acute episode much improved/resolved- dementia is at baseline now -Improved --- stable on current dosing of seroques; no further aggression/ aggitation noted -Dr. Jennings did speak with Psychiatrist, Dr Hughes who recommends Seroquel 6.25 BID and 50mg at HS; working well thus far without ADR. Chronic medical conditions: HTN- stable Hypothyroidism- TSH WNL. Hx of positive H Pylori Alzheimer Dementia- end stage Diverticulitis Other: DVT prophylax GI prophylax PT/OT when able to participate Patient is DNR/DNI LOS>96 hours, pending placement. Possible DC to NH/SNF early this week
--- NOTE | 2016-11-09 10:30 | CONS ---
CONSULTING PHYSICIAN: Anival Hughes MD DATE OF CONSULTATION: 11/07/2016 This is a 60-minute emergency room clinical event. IDENTIFICATION: The patient is an 81-year-old female, who was admitted to the [facility] medical unit secondary to medical complications of an incarcerated hernia. She is seen for psychiatric consultation at this point in time after being transferred off the MICU postop to the regular Med/Surg unit. CHIEF COMPLAINT: "I am okay." HISTORY OF PRESENT ILLNESS: The patient is an 81-year-old female, who had been a long-term resident at the [facility]. She began having health issues and had to be admitted secondary to an incarcerated hernia. She had the hernia reduced and in the process had PEG tube placement. Evidently postop, the patient began having behavior issues on the unit. She does have a lengthy psychiatric history according to the collateral information that was received from the treatment team. Medication adjustments were made to her present psychiatric medication regimen, but the behaviors apparently continued to persist. At this point in time, report is being given that the patient's behaviors are starting to improve. Staff is reporting that the patient had a very good night last night and her striking out against staff has also been greatly reduced over the past couple of days. On interview, the patient is stating "I have no idea" of what is going on and she states that she is "not really" having any questions regarding her present situation. She is alert and oriented x1 to person, but not to place or date. Staff do report that the patient is able to interact perhaps a little bit more meaningfully when interactions are done in person bases on the part of the nursing staff, but they also state that the patient is not cognitively oriented when they talk with her either. MEDICATIONS: Psychiatric medication at the time of presentation: 1. Aricept 5 mg daily. 2. Seroquel 6.25 mg b.i.d., 50 mg at bedtime. ALLERGIES: The patient is allergic to acetaminophen. PAST MEDICAL HISTORY: 1. Status post reduced incarcerated hernia with PEG tube placement. 2. Dementia process. REVIEW OF SYSTEMS: 1. GI. 2. Neuro. FAMILY PSYCHIATRIC AND CD HISTORY: None reported. PAST PSYCHIATRIC AND CD HISTORY: The patient evidently has a past history of mental health issues and there is some report that the patient had a history of schizophrenia. She has been treated with psychiatric medications in the past, currently taking Seroquel which appears to have helped. SOCIAL HISTORY: The patient is from [facility] per collateral report and she most recently had been living at the [facility] in [place], [place], and does have family in the area. It appears that [facility] will not be able to take the patient back due to her higher level of care needs secondary to her recent physical health issues. MENTAL STATUS EXAM: The patient is an 81-year-old white female in no apparent distress. Speech is significant for increased latency of response, shortened duration of utterance. Psychomotor activities are within normal limits. There is no abnormal motor movements or tics observed. Gait and station are not observed. This patient is sitting at the time of the inpatient psychiatric consult and the patient is cognitively oriented x1 to person, but not to place and time. Mood is "okay." Affect is cooperative as it can be for the purposes of the inpatient psychiatric consultation with the apparent limitations of inability to process the questions being asked. There is no behavioral or stated evidence of acute suicidal or homicidal ideation or acute psychotic or paranoid symptoms. Thought processes do appear demented. There are no acute manic symptoms evident. Judgment and insight appear impaired. Motivation for help is fair to poor. VITAL SIGNS: Blood pressure 118/56, pulse 66, respirations 15, temperature 97.2. IMPRESSION: Hopewell I: 1. Dementia, not otherwise specified, F03.90. 2. Past history of psychosis, not otherwise specified, F29. 3. Reported history of schizophrenia in the past. Hopewell II: None. Hopewell III: Status post reduced incarcerated hernia with percutaneous endoscopic gastrostomy tube placement. Hopewell IV: Severe. Hopewell V: 45. PLAN: 1. We will continue the patient's Aricept 5 mg daily. 2. Also continue patient's Seroquel 6.25 mg b.i.d., 50 mg at bedtime to help treat any possible psychotic symptoms, mood instability notes of with sleep initiation, maintenance, and anxiety reduction. 3. If the patient has breakthrough behaviors while still on the unit, I would anticipate being able to raise the Seroquel particularly during the day from 6.25 mg b.i.d. to 12.5 b.i.d. and 50 at bedtime, but would hold off on doing so unless absolutely needed at this point as the patient does appear to be calm and stabilizing. 4. Other medications as dosed and prescribed by the patient's primary medical treatment team. 5. Anticipate when the patient is medically discharged that she will be appropriate from a medical standpoint to be discharged to a facility that will be able to manage her level of care needs as long as they are able to manage the patient's current dementia process, in combination with the medical needs the patient will require, and I do not anticipate that there will be any major changes to her present psychiatric medication regimen in regard to this necessities. The patient does appear to be stabilizing nicely postop and with the recent psychiatric medication adjustments. 6. We will continue follow up with the patient on an as-needed basis. Going forward she remains on the medical unit. 7. We will follow up with the patient sooner if any complications in the interim. 8. Crisis plan is in place. TAVIA /[id number]
[2016-11-09] MEDS: traMADol 50 MG Tab PO PRN (13:38)
[2016-11-09] MEDS ORDERED: QUEtiapine 25 MG Tab PO ONE (14:15)
[2016-11-09] MEDS: Donepezil 10 MG Tab PO SCH (20:30)
[2016-11-10] MEDS ORDERED: QUEtiapine 25 MG Tab PO SCH (06:00)
--- NOTE | 2016-11-10 06:45 | PCM.DCSUM1 ---
<Dena Hurst - Last Filed: 11/10/16 12:48> Discharge Summary - Hospital Course Free Text/Narrative:: 81 year olf [facility] resident evaluated in the ED pre op, presumptive diagnosis, incarcerated hiatal hernia. The medical record has been reviewed, no comment regarding ASHD is listed. That being said, the patient in all likelihood is able to perform 3 METS. Report from the staff member would indicate that she is able to do light cleaning and ADLs. PMH includes Alzheimer dementia, there is no apparent documented psychiatric component listed in [facility] progress notes. However it is listed in the diagnosis list from [facility]. Nonetheless given the patient presentation with the risk and benefits, the patient should proceed to the operating room. No additional work up is required. The patient has had a history of HTN, hypothyroidism, hiatal hernia as well as dementia with "behavioral disturbance." The patient did not participate in the history portion of the H and P. It was reported that she had abdominal pain, a loss of appetite and recent nausea with vomiting. Palliative measures were unsuccessful. Patient was admitted and taken to the operating room for laparoscopic procedure ; reduction of incarcerated hiatal hernia with Peg tube placement per Dr. Sotelo. Patient did well postoperatively. Peg tube was used for water flushes BID and PRN for medications. VS remained stable, labs remained stable. Discharge and placement became difficult postoperatively as her prior [facility]/ dementia unit is not able to care for her with peg tube present. Patient then began to develop behaviors, aggression/aggitation and acute psychosis. Psychiatry was consulted, medications adjusted, seroquel dosing was increased and patient behaviors resolved. Again, she was medically stable during this time. She will be discharged today to SNF/NH with PT/OT to cont to work with her and with follow up with her PCP within 5-[address] Sotelo within 2 weeks. - Discharge Data Discharge Date: 11/10/16 (admit date 10/27/16) Discharge Disposition: DC/Tfer to [facility] Condition: Fair - Discharge Diagnosis/Problem(s) (1) Hiatal hernia with obstruction but no gangrene SNOMED Code(s): 13400145 ICD Code: K44.0 - DIAPHRAGMATIC HERNIA WITH OBSTRUCTION, WITHOUT GANGRENE Status: Acute Priority: High (2) Nausea and vomiting SNOMED Code(s): 18334851 ICD Code: R11.2 - NAUSEA WITH VOMITING, UNSPECIFIED Status: Resolved Priority: High Qualifiers: Vomiting type: unspecified Vomiting Intractability: intractable Qualified Code(s): R11.2 - Nausea with vomiting, unspecified (3) Dementia SNOMED Code(s): 98999959 ICD Code: F03.90 - UNSPECIFIED DEMENTIA WITHOUT BEHAVIORAL DISTURBANCE Status: Chronic Priority: High Qualifiers: Dementia type: Alzheimer's disease (4) PEG (percutaneous endoscopic gastrostomy) status SNOMED Code(s): 179429518, 539835806 ICD Code: Z93.1 - GASTROSTOMY STATUS Status: Acute Priority: High - Patient Summary/Data Operative Procedure(s) Performed: Diagnostic laparoscopy, reduction of incarcerated hiatal hernia, diagnostic EGD with laparoscopic assisted placement of PEG tube Complications: None Consults: Consultations 10/28/16 09:00 PT Evaluation and Treatment [CONS] Routine 10/28/16 10:00 Consult to Occupational Therapy [OT Evaluation and Treatment] [CONS] Routine 10/29/16 08:00 Consult to Care Management [Consult to Case Management] [CONS] Routine 11/01/16 14:17 Consult to Dietary [Consult to Anesthesiology Technologist] [CONS] Routine 11/04/16 13:32 Consult to Physician [CONS] Urgent -- General Surgery, Dr. Sotelo Labs Pending at D/C: None Recommended Follow-up Testing/Procedures: Follow up with PCP within 5-7 days of discharge Follow up with Dr. Sotelo in 2 weeks Planned Operative Procedure(s) after DC: None; possible PEG tube removal around 8 weeks post insertion pending Dr. Sotelo recommendations Hospital Course: As above - Patient Instructions Diet: Heart Healthy Diet Activity: As Tolerated (with PT and OT to continue at Shelter) Driving: Do Not Drive Showering/Bathing: May Shower Wound/Incision Care: Change Dressing Daily (to PEG tube) Notify Provider of: Fever, Increased Pain, Nausea and/or Vomiting - Discharge Plan Prescriptions/Med Rec: Potassium Chloride [Klor-Con M20] 40 meq PO BID #60 tab.er QUEtiapine [SEROquel] 12.5 mg PO BIDDIURETIC #60 tablet Simethicone 80 mg PO Q6H PRN #40 tab.chew PRN Reason: gas/bloating traMADol [Ultram] 50 - 100 mg PO Q6H PRN #40 tablet PRN Reason: Pain traMADol [Ultram] 50 mg PO BID #60 tablet Home Medications: Home Meds Benzocaine/Menthol [Cepacol Sore Throat Lozenge] 1 tab PO Q4H PRN 10/27/16 [ History] Carboxymethyl/Glycerin/Poly80 [Refresh Optive Advanced Drops] 1 drop EYEBOTH BID 10/27/16 [History] Donepezil HCl 5 mg PO BEDTIME 10/27/16 [History] Hydrocortisone [Cortizone-10] 1 applic TOP BID PRN 10/27/16 [History] Levothyroxine [Synthroid] 50 mcg PO DAILY 10/27/16 [History] Lidocaine HCl [Aspercreme] 1 applic TOP QID PRN 10/27/16 [History] Magnesium Hydroxide [Milk of Magnesia] 400 mg PO QID PRN 10/27/16 [History] Miracle Mouth Rinse 5 ml PO QID PRN 10/27/16 [History] Multivit-Min/FA/Lycopene/Lut [Century Adults 50+ Tablet] 1 tab PO DAILY [History] Omeprazole Magnesium [Prilosec Otc] 20 mg PO BID PRN 10/27/16 [History] Oxybutynin Chloride [Ditropan Xl] 5 mg PO DAILY 10/27/16 [History] QUEtiapine Fumarate [Seroquel] 50 mg PO BEDTIME 10/27/16 [History] Potassium Chloride [Klor-Con M20] 40 meq PO BID #60 tab.er 11/10/16 [Rx] QUEtiapine [SEROquel] 12.5 mg PO BIDDIURETIC #60 tablet 11/10/16 [Rx] Simethicone 80 mg PO Q6H PRN #40 tab.chew 11/10/16 [Rx] traMADol [Ultram] 50 - 100 mg PO Q6H PRN #40 tablet 11/10/16 [Rx] traMADol [Ultram] 50 mg PO BID #60 tablet 11/10/16 [Rx] Patient Handouts: Hiatal Hernia, PEG Tube Home Guide, [id number], Care of a Feeding Tube, [id number], Alzheimer Disease, Dementia, [id number] Referrals: Queenie Sotelo MD [Physician] - Javier Schaeffer MD [Primary Care Provider] - - Discharge Summary/Plan Comment DC Time >30 min.: Yes (40 min) - General Info Date of Service: 11/10/16 Admission Dx/Problem (Free Text: Berna is seen this morning, by myself accompanied by nursing. She appears comfortable, states "no" when asked if in pain. She slept through the night last night per nursing reports. SW is continue to work on placement for her. Behaviors have been much better the past few days, no aggitation or aggression. VSS and labs stable, medically stable. Functional Status: Reports: pain controlled, tolerating diet, ambulating, urinating. Denies: new symptoms - Review of Systems General: Reports: No Symptoms HEENT: Reports: no symptoms Pulmonary: Reports: no symptoms Cardiovascular: Reports: No Symptoms Gastrointestinal: Reports: No symptoms Genitourinary: Reports: no symptoms Musculoskeletal: Reports: no symptoms Skin: Reports: no symptoms Neurological: Reports: Confusion (pleasantly confused; end stage dementia) Psychiatric: Reports: confusion - Patient Data Vitals - Most Recent: Last Vital Signs Temp 97.7 F 11/10/16 02:59 Pulse 63 11/10/16 02:59 Resp 18 11/10/16 02:59 BP 133/61 11/10/16 02:59 Pulse Ox 98 11/10/16 02:59 Weight - Most Recent: 67.268 kg I&O - Last 24 hours: Intake & Output 11/09/16 11/09/16 11/10/16 14:59 22:59 06:59 Intake Total 300 854 Output Total 500 Balance -200 854 Lab Results - Last 24 hrs: Laboratory Results - last 24 hr 11/09/16 11/09/16 Range/Units 06:50 06:50 WBC 3.76 L (3.98-10.04) K/mm3 RBC 4.40 (3.98-5.22) M/mm3 Hgb 12.8 (11.2-15.7) gm/L Hct 39.7 (34.1-44.9) % MCV 90.2 (79.4-94.8) fl MCH 29.1 (25.6-32.2) pg MCHC 32.2 (32.2-35.5) g/dl RDW Std Deviation 46.2 (36.4-46.3) fL Plt Count 359 (182-369) K/mm3 MPV 9.3 L (9.4-12.3) fl Neut % (Auto) 40.6 (34.0-71.1) % Lymph % (Auto) 35.1 (19.3-51.7) % [place] % (Auto) 17.6 H (4.7-12.5) % Eos % (Auto) 5.6 (0.7-5.8) Baso % (Auto) 1.1 (0.1-1.2) % Neut # (Auto) 1.53 L (1.56-6.13) K/mm3 Lymph # (Auto) 1.32 (1.18-3.74) K/mm3 [place] # (Auto) 0.66 H (0.24-0.36) K/mm3 Eos # (Auto) 0.21 (0.04-0.36) K/mm3 Baso # (Auto) 0.04 (0.01-0.08) K/mm3 Manual Slide Review Normal smear Sodium 139 (136-145) mEq/L Potassium 5.0 (3.5-5.1) mEq/L Chloride 106 (98-107) mEq/L Carbon Dioxide 27 (21-32) mEq/L Anion Gap 11.0 (5-15) BUN 12 (7-18) mg/dL Creatinine 1.2 H (0.55-1.02) mg/dL Est Cr Clr Drug Dosing 29.57 mL/min Estimated GFR (MDRD) 43 (>60) mL/min BUN/Creatinine Ratio 10.0 L (14-18) Glucose 106 (83-115) mg/dL Calcium 9.5 (8.5-10.1) mg/dL Magnesium 2.3 (1.8-2.4) mg/dl Med Orders - Current: Current Medications Artificial Tears (Isopto Tears 0.5% Ophth Soln) 0 ml EYEBOTH TID PRN PRN Reason: Dry Eyes Dextrose/Water (Dextrose 50% In Water) 50 ml IVPUSH ASDIRECTED PRN PRN Reason: Hypoglycemia Donepezil HCl (Aricept) 5 mg PO BEDTIME [facility] Last Admin: 11/09/16 20:30 Dose: 5 mg Famotidine (Pepcid) 20 mg PO BID [facility] Last Admin: 11/09/16 20:30 Dose: 20 mg Levothyroxine Sodium (Synthroid) 50 mcg PO DAILY [facility] Last Admin: 11/09/16 08:18 Dose: 50 mcg Oxybutynin Chloride (Oxybutynin Er) 5 mg PO DAILY [facility] Last Admin: 11/07/16 09:22 Dose: 5 mg Potassium Chloride (Klor-Con M20) 40 meq PO BID [facility] Last Admin: 11/09/16 20:29 Dose: 40 meq Quetiapine Fumarate (Seroquel) 50 mg PO BEDTIME [facility] Last Admin: 11/09/16 20:29 Dose: 50 mg Quetiapine Fumarate (Seroquel) 12.5 mg PO BIDDIURETIC [facility] Last Admin: 11/10/16 05:23 Dose: 12.5 mg Simethicone (Simethicone) 80 mg PO Q6H PRN PRN Reason: gas/pain Last Admin: 11/08/16 19:44 Dose: 80 mg Tramadol HCl (Ultram) 50 mg PO BID [facility] Last Admin: 11/09/16 20:30 Dose: 50 mg Tramadol HCl (Ultram) 50 - 100 mg PO Q6H PRN PRN Reason: Pain Last Admin: 11/09/16 13:38 Dose: 100 mg Discontinued Medications Benzocaine/Menthol (Cepacol Sore Throat) 1 lozenge MUCMEM Q1H PRN PRN Reason: Sore Throat Bupivacaine HCl/Epinephrine Bitart (Marcaine 0.5%/Epinephrine 1:200,000) Confirm Administered Dose 50 ml .ROUTE .STK-MED ONE Stop: 10/27/16 14:56 Last Admin: 10/27/16 15:47 Dose: 20 ml Ertapenem (Invanz) Confirm Administered Dose 1 gm .ROUTE .STK-MED ONE Stop: 10/27/16 15:57 Fentanyl (Sublimaze) Confirm Administered Dose 100 mcg .ROUTE .STK-MED ONE Stop: 10/27/16 15:03 Fentanyl (Sublimaze) 25 mcg IVPUSH Q1H PRN PRN Reason: Pain (severe 7-10) Stop: 10/28/16 17:11 Last Admin: 10/28/16 12:51 Dose: 25 mcg Haloperidol Lactate (Haldol) 2 mg IVPUSH Q8H PRN PRN Reason: Agitation Last Admin: 10/29/16 10:05 Dose: 2 mg Haloperidol Lactate (Haldol) 3 mg IVPUSH ONETIME ONE Stop: 10/29/16 12:50 Last Admin: 10/29/16 13:04 Dose: 3 mg Haloperidol Lactate (Haldol) 2 mg IVPUSH Q8H PRN PRN Reason: restlessness Haloperidol Lactate (Haldol) 1 mg IVPUSH NOW STA Stop: 11/04/16 13:30 Last Admin: 11/04/16 13:37 Dose: 1 mg Haloperidol Lactate (Haldol) 3 mg IVPUSH ONETIME STA Stop: 11/04/16 13:46 Last Admin: 11/04/16 13:50 Dose: 3 mg Hydromorphone HCl (Dilaudid) Confirm Administered Dose 1 mg .ROUTE .STK-MED ONE Stop: 10/27/16 15:57 Hydromorphone HCl (Dilaudid) 1 mg IVPUSH ONETIME ONE Stop: 10/30/16 08:05 Last Admin: 10/30/16 08:18 Dose: 1 mg Hydromorphone HCl (Dilaudid) 0.5 mg IVPUSH Q4H PRN PRN Reason: Pain Last Admin: 11/02/16 04:25 Dose: 0.5 mg Sodium Chloride (Normal Saline) 1,000 mls @ 125 mls/hr IV ASDIRECTED [facility] Last Admin: 10/27/16 10:47 Dose: 125 mls/hr Lidocaine HCl (Xylocaine-Mpf 1%) Confirm Administered Dose 6 mls @ as directed .ROUTE .STK-MED ONE Stop: 10/27/16 15:57 Lactated Ringer's (Ringers, Lactated) 1,000 mls @ 100 mls/hr IV ASDIRECTED [facility] Last Admin: 10/28/16 04:04 Dose: 100 mls/hr Potassium Chloride 40 meq/ (Lactated Ringer's) 1,020 mls @ 102 mls/hr IV ASDIRECTED [facility] Stop: 10/29/16 01:00 Last Admin: 10/28/16 14:35 Dose: 102 mls/hr Potassium Cl/Dextrose/Lact Ringer's (D5 Lr With 20 Meq Kcl) 1,000 mls @ 100 mls /hr IV ASDIRECTED [facility] Last Admin: 11/01/16 14:02 Dose: 100 mls/hr Magnesium Sulfate 2 gm/ Premix 50 mls @ 25 mls/hr IV ONETIME ONE Stop: 10/30/16 12:03 Last Admin: 10/30/16 10:34 Dose: 25 mls/hr Insulin Aspart (Novolog) 0 unit SUBCUT Q6H [facility] PRN Reason: Protocol Last Admin: 10/31/16 13:24 Dose: Not Given Iopamidol (Isovue-300 (61%)) 100 ml IVPUSH ONETIME ONE Stop: 10/27/16 11:58 Last Admin: 10/27/16 12:03 Dose: 100 ml Lidocaine HCl (Xylocaine 1%) Confirm Administered Dose 50 ml .ROUTE .STK-MED ONE Stop: 10/27/16 14:56 Last Admin: 10/27/16 15:47 Dose: 20 ml Lorazepam (Ativan) 0.5 mg IVPUSH Q8H PRN PRN Reason: Agitation Last Admin: 10/29/16 23:47 Dose: 0.5 mg Lorazepam (Ativan) 1 mg IVPUSH ONETIME ONE Stop: 10/29/16 12:50 Last Admin: 10/29/16 13:04 Dose: 1 mg Lorazepam (Ativan) 0.5 mg IM Q8H PRN PRN Reason: restlessness Last Admin: 10/31/16 23:18 Dose: 0.5 mg Lorazepam (Ativan) 0.5 mg IVPUSH Q8H PRN PRN Reason: restlessnes Magnesium Citrate (Citrate Of Magnesia) 296 ml PO ONETIME ONE Stop: 11/09/16 08:01 Last Admin: 11/09/16 08:20 Dose: 296 ml Magnesium Hydroxide (Milk Of Magnesia) 30 ml PO ONETIME ONE Stop: 11/08/16 16:31 Last Admin: 11/08/16 17:39 Dose: 30 ml Metoclopramide HCl (Reglan) 10 mg IVPUSH ONETIME ONE Stop: 10/27/16 13:39 Last Admin: 10/27/16 13:52 Dose: 10 mg Morphine Sulfate (Morphine 10 Mg/0.5 Ml Oral Syringe) 2.5 mg PO Q6H PRN PRN Reason: Pain Last Admin: 11/01/16 06:52 Dose: 2.5 mg Naloxone HCl (Narcan) Confirm Administered Dose 0.4 mg .ROUTE .STK-MED ONE Stop: 10/27/16 16:57 Ondansetron HCl (Zofran) 4 mg IVPUSH ONETIME ONE Stop: 10/27/16 10:32 Last Admin: 10/27/16 10:47 Dose: 4 mg Ondansetron HCl (Zofran) 4 mg IVPUSH Q6H PRN PRN Reason: Nausea/Vomiting Pantoprazole Sodium (Protonix Iv) 40 mg IVPUSH DAILY [facility] Last Admin: 10/29/16 10:05 Dose: 40 mg Propofol (Diprivan 20 Ml) Confirm Administered Dose 200 mg .ROUTE .STK-MED ONE Stop: 10/27/16 15:03 Quetiapine Fumarate (Seroquel) 50 mg PO ONETIME ONE Stop: 10/29/16 11:45 Last Admin: 10/29/16 12:21 Dose: 50 mg Quetiapine Fumarate (Seroquel) 6.25 mg PO BIDDIURETIC [facility] Last Admin: 11/09/16 13:39 Dose: 6.25 mg Quetiapine Fumarate (Seroquel) 6.25 mg PO ONETIME ONE Stop: 11/09/16 14:16 Last Admin: 11/09/16 14:53 Dose: 6.25 mg Sodium Chloride (Saline Flush) 10 ml FLUSH ASDIRECTED PRN PRN Reason: Keep Vein Open Last Admin: 10/27/16 10:50 Dose: 10 ml Sodium Chloride (Saline Flush) 10 ml FLUSH ONETIME PRN PRN Reason: IV FLUSH Last Admin: 10/27/16 12:03 Dose: 10 ml Succinylcholine Chloride (Succinylcholine In Ns Pf) Confirm Administered Dose 100 mg .ROUTE .STK-MED ONE Stop: 10/27/16 15:57 Tramadol HCl (Ultram) 50 mg PO BID PRN PRN Reason: Pain Last Admin: 11/01/16 19:43 Dose: 50 mg Tramadol HCl (Ultram) 50 mg PO BID ONE Stop: 11/02/16 09:01 Tramadol HCl (Ultram) 50 mg PO Q6H PRN PRN Reason: Pain Last Admin: 11/06/16 03:08 Dose: 50 mg - Exam Quality Assessment: Reports: DVT prophylaxis General: Reports: alert, cooperative, no acute distress HEENT: Reports: Pupils equal, Pupils reactive, EOMI, Mucous membr. moist/pink Neck: Reports: supple Lungs: Reports: Clear to auscultation, Normal respiratory effort, Decreased breath sounds (to bases) Cardiovascular: Reports: Regular Rate, Regular Rhythm Abdomen: Reports: bowel sounds present, soft, no tenderness, no distension, other (Peg site without s/s of infection or concerns) (Female) Exam: Deferred Rectal (Female) Exam: Deferred Back Exam: Reports: normal inspection Extremities: Reports: no edema, no calf tenderness Skin: Reports: warm, dry Neurological: Reports: other (pleasantly confused; nonsensical thoughts/speech- end stage dementia) Psy/Mental Status: Reports: alert *Q Meaningful Use (DIS) - VTE *Q VTE Criteria *Q: - Stroke *Q Stroke Criteria *Q: - AMI *Q AMI Criteria *Q: <Josette Graves - Last Filed: 11/11/16 19:24> Discharge Summary - Hospital Course Free Text/Narrative:: Concise summary of an extended stay as above. - Patient Summary/Data Consults: Consultations 10/28/16 09:00 PT Evaluation and Treatment [CONS] Routine 10/28/16 10:00 Consult to Occupational Therapy [OT Evaluation and Treatment] [CONS] Routine 10/29/16 08:00 Consult to Care Management [Consult to Case Management] [CONS] Routine 11/01/16 14:17 Consult to Dietary [Consult to Anesthesiology Technologist] [CONS] Routine 11/04/16 13:32 Consult to Physician [CONS] Urgent - Patient Data Vitals - Most Recent: Last Vital Signs Temp 36.7 C 11/10/16 08:24 Pulse 60 11/10/16 08:24 Resp 14 11/10/16 08:24 BP 118/83 11/10/16 08:24 Pulse Ox 100 11/10/16 08:24 Med Orders - Current: Current Medications Discontinued Medications Artificial Tears (Isopto Tears 0.5% Ophth Soln) 0 ml EYEBOTH TID PRN PRN Reason: Dry Eyes Benzocaine/Menthol (Cepacol Sore Throat) 1 lozenge MUCMEM Q1H PRN PRN Reason: Sore Throat Bupivacaine HCl/Epinephrine Bitart (Marcaine 0.5%/Epinephrine 1:200,000) Confirm Administered Dose 50 ml .ROUTE .STK-MED ONE Stop: 10/27/16 14:56 Last Admin: 10/27/16 15:47 Dose: 20 ml Dextrose/Water (Dextrose 50% In Water) 50 ml IVPUSH ASDIRECTED PRN PRN Reason: Hypoglycemia Donepezil HCl (Aricept) 5 mg PO BEDTIME [facility] Last Admin: 11/09/16 20:30 Dose: 5 mg Ertapenem (Invanz) Confirm Administered Dose 1 gm .ROUTE .STK-MED ONE Stop: 10/27/16 15:57 Famotidine (Pepcid) 20 mg PO BID [facility] Last Admin: 11/10/16 08:00 Dose: 20 mg Fentanyl (Sublimaze) Confirm Administered Dose 100 mcg .ROUTE .STK-MED ONE Stop: 10/27/16 15:03 Fentanyl (Sublimaze) 25 mcg IVPUSH Q1H PRN PRN Reason: Pain (severe 7-10) Stop: 10/28/16 17:11 Last Admin: 10/28/16 12:51 Dose: 25 mcg Haloperidol Lactate (Haldol) 2 mg IVPUSH Q8H PRN PRN Reason: Agitation Last Admin: 10/29/16 10:05 Dose: 2 mg Haloperidol Lactate (Haldol) 3 mg IVPUSH ONETIME ONE Stop: 10/29/16 12:50 Last Admin: 10/29/16 13:04 Dose: 3 mg Haloperidol Lactate (Haldol) 2 mg IVPUSH Q8H PRN PRN Reason: restlessness Haloperidol Lactate (Haldol) 1 mg IVPUSH NOW STA Stop: 11/04/16 13:30 Last Admin: 11/04/16 13:37 Dose: 1 mg Haloperidol Lactate (Haldol) 3 mg IVPUSH ONETIME STA Stop: 11/04/16 13:46 Last Admin: 11/04/16 13:50 Dose: 3 mg Hydromorphone HCl (Dilaudid) Confirm Administered Dose 1 mg .ROUTE .STK-MED ONE Stop: 10/27/16 15:57 Hydromorphone HCl (Dilaudid) 1 mg IVPUSH ONETIME ONE Stop: 10/30/16 08:05 Last Admin: 10/30/16 08:18 Dose: 1 mg Hydromorphone HCl (Dilaudid) 0.5 mg IVPUSH Q4H PRN PRN Reason: Pain Last Admin: 11/02/16 04:25 Dose: 0.5 mg Sodium Chloride (Normal Saline) 1,000 mls @ 125 mls/hr IV ASDIRECTED [facility] Last Admin: 10/27/16 10:47 Dose: 125 mls/hr Lidocaine HCl (Xylocaine-Mpf 1%) Confirm Administered Dose 6 mls @ as directed .ROUTE .STK-MED ONE Stop: 10/27/16 15:57 Lactated Ringer's (Ringers, Lactated) 1,000 mls @ 100 mls/hr IV ASDIRECTED [facility] Last Admin: 10/28/16 04:04 Dose: 100 mls/hr Potassium Chloride 40 meq/ (Lactated Ringer's) 1,020 mls @ 102 mls/hr IV ASDIRECTED [facility] Stop: 10/29/16 01:00 Last Admin: 10/28/16 14:35 Dose: 102 mls/hr Potassium Cl/Dextrose/Lact Ringer's (D5 Lr With 20 Meq Kcl) 1,000 mls @ 100 mls /hr IV ASDIRECTED [facility] Last Admin: 11/01/16 14:02 Dose: 100 mls/hr Magnesium Sulfate 2 gm/ Premix 50 mls @ 25 mls/hr IV ONETIME ONE Stop: 10/30/16 12:03 Last Admin: 10/30/16 10:34 Dose: 25 mls/hr Insulin Aspart (Novolog) 0 unit SUBCUT Q6H [facility] PRN Reason: Protocol Last Admin: 10/31/16 13:24 Dose: Not Given Iopamidol (Isovue-300 (61%)) 100 ml IVPUSH ONETIME ONE Stop: 10/27/16 11:58 Last Admin: 10/27/16 12:03 Dose: 100 ml Levothyroxine Sodium (Synthroid) 50 mcg PO DAILY [facility] Last Admin: 11/10/16 08:00 Dose: 50 mcg Lidocaine HCl (Xylocaine 1%) Confirm Administered Dose 50 ml .ROUTE .STK-MED ONE Stop: 10/27/16 14:56 Last Admin: 10/27/16 15:47 Dose: 20 ml Lorazepam (Ativan) 0.5 mg IVPUSH Q8H PRN PRN Reason: Agitation Last Admin: 10/29/16 23:47 Dose: 0.5 mg Lorazepam (Ativan) 1 mg IVPUSH ONETIME ONE Stop: 10/29/16 12:50 Last Admin: 10/29/16 13:04 Dose: 1 mg Lorazepam (Ativan) 0.5 mg IM Q8H PRN PRN Reason: restlessness Last Admin: 10/31/16 23:18 Dose: 0.5 mg Lorazepam (Ativan) 0.5 mg IVPUSH Q8H PRN PRN Reason: restlessnes Magnesium Citrate (Citrate Of Magnesia) 296 ml PO ONETIME ONE Stop: 11/09/16 08:01 Last Admin: 11/09/16 08:20 Dose: 296 ml Magnesium Hydroxide (Milk Of Magnesia) 30 ml PO ONETIME ONE Stop: 11/08/16 16:31 Last Admin: 11/08/16 17:39 Dose: 30 ml Metoclopramide HCl (Reglan) 10 mg IVPUSH ONETIME ONE Stop: 10/27/16 13:39 Last Admin: 10/27/16 13:52 Dose: 10 mg Morphine Sulfate (Morphine 10 Mg/0.5 Ml Oral Syringe) 2.5 mg PO Q6H PRN PRN Reason: Pain Last Admin: 11/01/16 06:52 Dose: 2.5 mg Naloxone HCl (Narcan) Confirm Administered Dose 0.4 mg .ROUTE .STK-MED ONE Stop: 10/27/16 16:57 Ondansetron HCl (Zofran) 4 mg IVPUSH ONETIME ONE Stop: 10/27/16 10:32 Last Admin: 10/27/16 10:47 Dose: 4 mg Ondansetron HCl (Zofran) 4 mg IVPUSH Q6H PRN PRN Reason: Nausea/Vomiting Oxybutynin Chloride (Oxybutynin Er) 5 mg PO DAILY [facility] Last Admin: 11/10/16 08:00 Dose: 5 mg Pantoprazole Sodium (Protonix Iv) 40 mg IVPUSH DAILY [facility] Last Admin: 10/29/16 10:05 Dose: 40 mg Potassium Chloride (Klor-Con M20) 40 meq PO BID [facility] Last Admin: 11/10/16 08:00 Dose: Not Given Propofol (Diprivan 20 Ml) Confirm Administered Dose 200 mg .ROUTE .STK-MED ONE Stop: 10/27/16 15:03 Quetiapine Fumarate (Seroquel) 50 mg PO BEDTIME [facility] Last Admin: 11/09/16 20:29 Dose: 50 mg Quetiapine Fumarate (Seroquel) 50 mg PO ONETIME ONE Stop: 10/29/16 11:45 Last Admin: 10/29/16 12:21 Dose: 50 mg Quetiapine Fumarate (Seroquel) 6.25 mg PO BIDDIURETIC [facility] Last Admin: 11/09/16 13:39 Dose: 6.25 mg Quetiapine Fumarate (Seroquel) 12.5 mg PO BIDDIURETIC [facility] Last Admin: 11/10/16 05:23 Dose: 12.5 mg Quetiapine Fumarate (Seroquel) 6.25 mg PO ONETIME ONE Stop: 11/09/16 14:16 Last Admin: 11/09/16 14:53 Dose: 6.25 mg Simethicone (Simethicone) 80 mg PO Q6H PRN PRN Reason: gas/pain Last Admin: 11/08/16 19:44 Dose: 80 mg Sodium Chloride (Saline Flush) 10 ml FLUSH ASDIRECTED PRN PRN Reason: Keep Vein Open Last Admin: 10/27/16 10:50 Dose: 10 ml Sodium Chloride (Saline Flush) 10 ml FLUSH ONETIME PRN PRN Reason: IV FLUSH Last Admin: 10/27/16 12:03 Dose: 10 ml Succinylcholine Chloride (Succinylcholine In Ns Pf) Confirm Administered Dose 100 mg .ROUTE .STK-MED ONE Stop: 10/27/16 15:57 Tramadol HCl (Ultram) 50 mg PO BID PRN PRN Reason: Pain Last Admin: 11/01/16 19:43 Dose: 50 mg Tramadol HCl (Ultram) 50 mg PO BID ONE Stop: 11/02/16 09:01 Tramadol HCl (Ultram) 50 mg PO Q6H PRN PRN Reason: Pain Last Admin: 11/06/16 03:08 Dose: 50 mg Tramadol HCl (Ultram) 50 mg PO BID HERACLIO Last Admin: 11/10/16 08:00 Dose: 50 mg Tramadol HCl (Ultram) 50 - 100 mg PO Q6H PRN PRN Reason: Pain Last Admin: 11/09/16 13:38 Dose: 100 mg *Q Meaningful Use (DIS) - VTE *Q VTE Criteria *Q: - Stroke *Q Stroke Criteria *Q: - AMI *Q AMI Criteria *Q:
[2016-11-10] MEDS: Potassium Chloride 20 MEQ Tab.ER PO SCH (08:00)
[2016-11-10] MEDS: Levothyroxine 50 MCG Tab PO SCH (08:00)
[2016-11-10] MEDS: Oxybutynin 5 MG Tab.ER PO SCH (08:00)
[2016-11-10] MEDS: traMADol 50 MG Tab PO SCH (08:00)
[2016-11-10] MEDS: Famotidine 20 MG Tab PO SCH (08:00)
[2016-11-10 08:26] VITALS: BP 118/83
== END 2016-11-10 10:30 | disposition home or self-care (01) | DRG 326 ==
LOC: JD.ED 09:49 → JD.ICU 14:13 → UNDOADMIN 14:30 → JD.SDS 15:10 → UNDOADMIN 15:11 → JD.ICU 15:11 → JD.MS 10-29 19:54 → UNDODISIN 11-10 10:30
PROVIDERS: ADMIT Internal Medicine; ATTEND Internal Medicine
PROC: 0BQS4ZZ (ICD-10-PCS; principal; 2016-10-27)
PROC: 0BQR4ZZ (ICD-10-PCS; 2016-10-27)
PROC: 0DH63UZ Insertion of Feeding Device into Stomach, Percutaneous Approach (ICD-10-PCS; 2016-10-27)
DX: K44.0 Diaphragmatic hernia with obstruction, without gangrene (principal); K29.71 Gastritis, unspecified, with bleeding; K31.1 Adult hypertrophic pyloric stenosis; F02.81 Dementia in other diseases classified elsewhere, unspecified severity, with behavioral disturbance; R11.2 Nausea with vomiting, unspecified; I10 Essential (primary) hypertension; E03.9 Hypothyroidism, unspecified; G30.9 Alzheimer's disease, unspecified; K52.9 Noninfective gastroenteritis and colitis, unspecified; F02.80 Dementia in other diseases classified elsewhere, unspecified severity, without behavioral disturbance, psychotic disturbance, mood disturbance, and anxiety; K21.9 Gastro-esophageal reflux disease without esophagitis; R32 Unspecified urinary incontinence; M19.90 Unspecified osteoarthritis, unspecified site; M81.0 Age-related osteoporosis without current pathological fracture; F20.9 Schizophrenia, unspecified; D64.9 Anemia, unspecified; J30.9 Allergic rhinitis, unspecified; R91.1 Solitary pulmonary nodule; Z86.010 Personal history of colon polyps; Z79.899 Other long term (current) drug therapy; Z88.8 Allergy status to other drugs, medicaments and biological substances; H91.90 Unspecified hearing loss, unspecified ear; Z96.651 Presence of right artificial knee joint
CPT/HCPCS: 00790; 36415; 70450; 70450-26; 71010; 71010-26; 74000; 74000-26; 74177; 74177-26; 80048; 80053; 81001; 82962; 83605; 83690; 83735; 84484; 85025; 86140; 93005; 94762; 96361; 96374; 96375; 97116-GP; 97162-GP; 97166-GO; 97530-GP; 99231; 99232; 99239; 99285; 99285-25; A9270-GY; C9113; J0330; J1170; J1335; J1630; J2060; J2310; J2405; J2704; J2765; J3010; J3475; J3480; J7040; J7050; J7120; Q9967